=== PATIENT | male | born 1940 | race Caucasian/White ===

== ENCOUNTER 2016-08-20 14:35 | Inpatient (IN) ==
--- NOTE | 2016-08-20 14:43 | Emergency Department Note ---
Disposition Clinical Impression: Lower GI bleed Disposition: Admitted As Inpatient Condition: Fair General Adult HPI - General Chief complaint: ED GI Bleed Stated complaint: GI bleed Time Seen by Provider: 08/20/16 14:39 Nursing Notes Reviewed: Yes Vital Signs Reviewed: Yes - Related Data Home Medications Medication Instructions Recorded Confirmed Albuterol Neb [Proventil Neb] 2.5 mg IH QID PRN 06/21/15 08/20/16 Albuterol Sulfate [Albuterol 2 puff IH QID PRN 06/21/15 08/20/16 Inhaler] Allopurinol [Zyloprim 100 MG] 200 mg PO DAILY 06/21/15 08/20/16 Atorvastatin Calcium [Lipitor] 80 mg PO DAILY 06/21/15 08/20/16 Loratadine [Claritin] 10 mg PO DAILY PRN 06/21/15 08/20/16 Metoprolol [Lopressor] 37.5 mg PO BID 06/21/15 08/20/16 Omeprazole [PriLOSEC] 20 mg PO DAILY 06/21/15 08/20/16 Paroxetine [Paxil] 10 mg PO QAM 06/21/15 08/20/16 Pyridoxine HCl [Vitamin B-6] 50 mg PO QAM 06/21/15 08/20/16 RisperiDONE [Risperdal] 1 mg PO HS 06/21/15 08/20/16 Vitamin E (Dl,Tocopheryl Acet) 400 unit PO HS 06/21/15 08/20/16 [Vitamin E] Warfarin [Coumadin] 7.5 mg PO SUTUTHSA 06/21/15 08/20/16 Warfarin [Coumadin] 10 mg PO MOWEFR 06/21/15 08/20/16 Enoxaparin [Lovenox] 120 mg SQ Q12HR 08/20/16 08/20/16 Fluticasone Propionate Nasal 50 mcg NS BID 08/20/16 08/20/16 [Flonase] Mineral Oil/Petrolatum,White 1 appl BOTH EYES HS 08/20/16 08/20/16 [Refresh P.m. Ointment] Tiotropium [Spiriva] 18 mcg IH DAILY 08/20/16 08/20/16 Allergies Allergy/AdvReac Type Severity Reaction Status Date / Time No Known Allergies Allergy Verified 06/21/15 12:57 Past Medical History - Past Medical History Medical history: Reports: atrial fibrillation, COPD, coronary artery disease, diabetes, GERD, GI bleed, hyperlipidemia, hypertension, renal disease, thyroid disease, valvular heart disease Surgical history: Reports: pacemaker/AICD, other Psychiatric history: Reports: anxiety, depression, panic disorder, prior suicide attempt, schizophrenia - Social History Smoking Status: Smoker, status unknown Smokeless Tobacco Status: No Alcohol use: Reports: none Drug use: Reports: none Course Vital Signs Temperature 99.7 F H 08/20/16 14:38 Pulse Rate 99 08/20/16 14:38 Respiratory Rate 16 08/20/16 14:38 Blood Pressure 119/89 08/20/16 14:38 O2 Sat by Pulse Oximetry 97 08/20/16 14:38 Temperature 99.7 F H 08/20/16 14:38 Pulse Rate 70 08/20/16 17:00 Respiratory Rate 16 08/20/16 17:39 Blood Pressure 120/74 08/20/16 17:39 O2 Sat by Pulse Oximetry 97 08/20/16 17:00 Oxygen Delivery Oxygen Delivery Room Air Medical Decision Making - MDM Narrative Medical decision making narrative: I examined this patient and my medical decision-making was reviewed with the ALARM INVESTIGATOR/PA/Advanced Practice Nurse/Resident Physician. I agree with the documented findings, disposition and treatment plan as described except to the extent set forth below. Patient was evaluated on arrival with EMS and Dr. Short. I agree with his evaluation and management plan, supravascular the patient stay. Patient's had lower GI bleeding going on today. This was bright [facility]. He has had no history of this in the past according to him he does some mild schizophrenia but is cooperative here fairly poor historian. They get labs hemoglobin was 11. We will review his chart repeat his CBC place an IV and then probably will need admission. He is in agreement with this plan. 1545 hrs.: Patient refused rectal exam. He is a little bit of bleeding here. His hemoglobin has dropped from 11.4-9.7. We have talked with surgery here that can come and see the patient evaluate him wondering one of his biopsy sites could be bleeding. We did get the report from the [facility] of his colonoscopy and they did remove polyps service showed no pathology report this time. Patient's agree with this plan. 1650 hrs.: Hospitalist accepted patient for admission. Spoke with surgery and they asked that she be admitted admitted through medicine with them consult. They will keep him nothing by mouth after midnight for possible colonoscopy tomorrow. - Lab Data Result diagrams: 08/20/16 15:08 Lab Results 08/20/16 08/20/16 08/20/16 Range/Units 15:08 15:08 15:08 WBC 9.2 (4.3-11.1) K/mcL RBC 3.54 L (4.19-5.50) M/mcL Hgb 9.7 L (12.9-16.9) g/dL Hct 30.3 L (37.5-50.1) % MCV 85.6 (83.0-100.0) fL MCH 27.4 L (28.0-33.3) pg MCHC 32.0 (31.6-35.5) g/dL RDW 15.9 H (11.5-14.5) % Plt Count 113 L (140-400) K/mcL MPV 12.5 H (9.4-12.4) fL Immature Gran % 0.3 (0-4) % Seg Neutrophils % 67.0 % Lymphocytes % 18.1 % Monocytes % 10.4 % Eosinophils % 3.7 % Basophils % 0.5 % Neutrophils # 6.1 (1.6-8.9) K/mcL Lymphocytes # 1.7 (0.6-4.6) K/mcL Monocytes # 1.0 (0.0-1.3) K/mcL Eosinophils # 0.3 (0.0-0.6) K/mcL Basophils # 0.1 (0.0-0.2) K/mcL PT 29.0 H (9.4-12.1) Seconds INR 2.6 APTT 64.9 H (26.0-36.0) Seconds Blood Type B POSITIVE Antibody Screen NEGATIVE
[2016-08-20 15:19] LABS: Basophils # 0.1 K/mcL (0.0-0.2); Basophils % 0.5 %; Eosinophils # 0.3 K/mcL (0.0-0.6); Eosinophils % 3.7 %; Hematocrit 30.3 % (37.5-50.1); Hemoglobin 9.7 g/dL (12.9-16.9); Immature Granulocytes % 0.3 % (0-4); Lymphocytes # 1.7 K/mcL (0.6-4.6); Lymphocytes % 18.1 %; Mean Corpuscular Hemoglobin 27.4 pg (28.0-33.3); Mean Corpuscular Volume 85.6 fL (83.0-100.0); Mean Platelet Volume 12.5 fL (9.4-12.4); Monocytes % 10.4 %; Neutrophils # 6.1 K/mcL (1.6-8.9); Platelet Count 113 K/mcL (140-400); Red Blood Count 3.54 M/mcL (4.19-5.50); Red Cell Distribution Width 15.9 % (11.5-14.5)
[2016-08-20 15:23] LABS: INR 2.6
[2016-08-20 15:25] LABS: Activated Partial Thrombo Time 64.9 Seconds (26.0-36.0)
--- NOTE | 2016-08-20 15:26 | Emergency Department Note ---
Disposition Clinical Impression: Lower GI bleed Disposition: Admitted As Inpatient Condition: Fair [facility]errals: [facility] [Primary Care Provider[facility] - Forms: ED Satisfaction Letter Time of Disposition: 16:55 GI Bleed HPI - General Chief complaint: ED GI Bleed Stated complaint: GI bleed Time Seen by Provider: 08/20/16 14:39 Source: patient, EMS Mode of arrival: ambulatory Limitations: no limitations Nursing Notes Reviewed: Yes Vital Signs Reviewed: Yes - History of Present Illness HPI Narrative: Patient is a 76-year-old male with past medical history of A. fib, on warfarin, has a pacemaker placed. He presents today due to lower GI bleed. Patient is a transfer from the [facility]. He presents today due to lower GI bleed. Patient has been having bloody bowel movements for the past 5 days, multiple other day. He states it is bright red blood. Denies any lightheadedness, chest pain, shortness of breath. He was evaluated at the [facility] today and had an INR of 2.6, negative urinalysis, hemoglobin was 11.0, BNP not concerning. Patient had a colonoscopy on the and was told he had polyps. CT of the chest showed a nodule in the right upper lobe, otherwise no other additional acute findings. KUB showed a nonobstructive bowel gas pattern. - Related Data Home Medications Medication Instructions Recorded Confirmed Albuterol Neb [Proventil Neb] 2.5 mg IH Q4HR 06/21/15 06/21/15 Albuterol Sulfate [Albuterol 1 - 2 puff IH Q4HR 06/21/15 06/21/15 Inhaler] Allopurinol [Zyloprim 100 MG] 200 mg PO DAILY 06/21/15 06/21/15 Aspirin Enteric Coated [Aspirin EC] 81 mg PO DAILY 06/21/15 06/21/15 Atorvastatin Calcium [Lipitor] 80 mg PO DAILY 06/21/15 06/21/15 Budesonide/Formoterol 160/4.5 2 puff IH BID 06/21/15 06/21/15 [Symbicort 160/4.5] Furosemide [Lasix] 40 mg PO BID 06/21/15 06/21/15 Loratadine [Claritin] 10 mg PO DAILY 06/21/15 06/21/15 Metoprolol [Lopressor] 37.5 mg PO BID 06/21/15 06/21/15 Omeprazole [PriLOSEC] 20 mg PO DAILY 06/21/15 06/21/15 Paroxetine [Paxil] 10 mg PO DAILY 06/21/15 06/21/15 Potassium Chloride Elixir 20 meq PO DAILY 06/21/15 06/21/15 [Potassium Chloride] Pyridoxine HCl [Vitamin B-6] 50 mg PO DAILY 06/21/15 06/21/15 RisperiDONE [Risperdal] 1 mg PO HS 06/21/15 06/21/15 Vitamin E (Dl,Tocopheryl Acet) 400 unit PO DAILY 06/21/15 06/21/15 [Vitamin E] Warfarin [Coumadin] 7.5 mg PO AD PRN 06/21/15 06/21/15 Warfarin [Coumadin] 10 mg PO AD PRN 06/21/15 06/21/15 Allergies Allergy/AdvReac Type Severity Reaction Status Date / Time No Known Allergies Allergy Verified 06/21/15 12:57 All systems ED: reviewed and negative except as stated. Past Medical History - Past Medical History Attestation: Yes The following information was validated with the patient. Source: patient Medical history: Reports: atrial fibrillation, COPD, coronary artery disease, diabetes, GERD, GI bleed, hyperlipidemia, hypertension, renal disease, thyroid disease, valvular heart disease Surgical history: Reports: pacemaker/AICD, other Psychiatric history: Reports: anxiety, depression, panic disorder, prior suicide attempt, schizophrenia - Social History Smoking Status: Smoker, status unknown Smokeless Tobacco Status: No Alcohol use: Reports: none Drug use: Reports: none Physical Exam - General Limitations: no limitations General appearance: alert, in no apparent distress - Head Head exam: atraumatic, normocephalic, normal inspection - Eye Eye exam: Present: normal appearance, PERRL, EOMI - ENT ENT exam: normal exam, normal oropharynx, mucous membranes moist - Neck Neck exam: Present: normal inspection, full ROM, trachea midline - Chest Chest inspection: Present: normal inspection, symmetric chest wall rise - Respiratory Respiratory exam: Present: normal lung sounds bilaterally - Cardiovascular Cardiovascular exam: Present: regular rate, normal rhythm, normal heart sounds - Abdominal Exam Abdominal exam: Present: soft, Non-Tender. Absent: tenderness, distention, guarding, rebound, rigidity - Extremities Exam Extremities exam: Present: normal inspection, full ROM. Absent: tenderness, pedal edema - Neurological Exam Neurological exam: Present: alert, oriented X3 - Psychiatric Psychiatric exam: Present: normal affect, normal mood - Skin Skin exam: Present: warm, dry, intact, normal color Course Course Narrative: Vitals within normal limits. Physical exam was benign except for some mild paleness. Hemoglobin was stable at 11. INR 2.6. I talked with Dr. Elena about concern for lower GI bleed and need for endoscopy who stated that she will call me back after she gets out of surgery. 16:54 Santa Dhillon for surgery team Evaluated the Patient, She Stated That the Surgery Team Will Perform Colonoscopy Tomorrow Morning. Requested the Patient Be Admitted to Medicine Service and Then Nothing by Mouth after Midnight. Hospitalist accepted for admission. Vital Signs Temperature 99.7 F H 08/20/16 14:38 Pulse Rate 99 08/20/16 14:38 Respiratory Rate 16 08/20/16 14:38 Blood Pressure 119/89 08/20/16 14:38 O2 Sat by Pulse Oximetry 97 08/20/16 14:38 Temperature 99.7 F H 08/20/16 14:38 Pulse Rate 83 08/20/16 15:51 Respiratory Rate 16 08/20/16 15:51 Blood Pressure 118/78 08/20/16 15:51 O2 Sat by Pulse Oximetry 97 08/20/16 15:51 Oxygen Delivery Oxygen Delivery Room Air GI Bleed - [facility] Narrative Medical decision making narrative: Vitals within normal limits. Physical exam was benign except for some mild paleness. Hemoglobin was stable at 11. INR 2.6. I talked with Dr. Elena about concern for lower GI bleed and need for endoscopy who stated that she will call me back after she gets out of surgery. 16:54 Santa Dhillon for surgery team Evaluated the Patient, She Stated That the Surgery Team Will Perform Colonoscopy Tomorrow Morning. Requested the Patient Be Admitted to Medicine Service and Then Nothing by Mouth after Midnight. Hospitalist accepted for admission. - Medical Records Medical records reviewed: Yes I reviewed the patient's medical records. - Lab Data Lab results reviewed: Yes I reviewed the patient's lab results. Result diagrams: 08/20/16 15:08 Lab Results 08/20/16 08/20/16 Range/Units 15:08 15:08 WBC 9.2 (4.3-11.1) K/mcL RBC 3.54 L (4.19-5.50) M/mcL Hgb 9.7 L (12.9-16.9) g/dL Hct 30.3 L (37.5-50.1) % MCV 85.6 (83.0-100.0) fL MCH 27.4 L (28.0-33.3) pg MCHC 32.0 (31.6-35.5) g/dL RDW 15.9 H (11.5-14.5) % Plt Count 113 L (140-400) K/mcL MPV 12.5 H (9.4-12.4) fL Immature Gran % 0.3 (0-4) % Seg Neutrophils % 67.0 % Lymphocytes % 18.1 % Monocytes % 10.4 % Eosinophils % 3.7 % Basophils % 0.5 % Neutrophils # 6.1 (1.6-8.9) K/mcL Lymphocytes # 1.7 (0.6-4.6) K/mcL Monocytes # 1.0 (0.0-1.3) K/mcL Eosinophils # 0.3 (0.0-0.6) K/mcL Basophils # 0.1 (0.0-0.2) K/mcL PT 29.0 H (9.4-12.1) Seconds INR 2.6 APTT 64.9 H (26.0-36.0) Seconds - Radiology Data Radiology results reviewed: Yes I reviewed the patient's radiology results. - EKG Data EKG attestation: Yes I reviewed and interpreted this EKG. EKG results narrative: Paced rhythm. Rate 74. QTC 477. S.B.A.R. - S.B.A.R. Situation: Demographics, MOA Background: Presenting Complaint, Relevant PMH, Meds, & Allergies Assessment: Vital Signs, Course and respsone to treatment, Exam Concerns, Patient/Family Expectation, Pertinant Lab Results, Outstanding Labs Recommendation: Barrier(s) to disposition, Recommendation based on pending studies, treatments, or consults S.B.A.R. Report Given to: Dr. Jose Caballero Repor Time: 16:55
[2016-08-20] MEDS ORDERED: Naloxone 0.4 MG/ML INJ IVP PRN (17:49)
[2016-08-20] MEDS ORDERED: Ondansetron 4 MG/2 ML VIAL IVP PRN (17:49)
[2016-08-20] MEDS ORDERED: MOM Conc 10 ML UD.LIQ PO PRN (17:49)
[2016-08-20] MEDS ORDERED: 0.9 % Sodium Chloride 1,000 ML IVC SCH (18:00)
--- NOTE | 2016-08-20 18:20 | Internal Med History&Physical ---
<Haylie Hairston Bren - Last Filed: 08/20/16 19:06> Date of Encounter: 08/20/16 Time of Encounter: 18:00 Assessment and Plan (1) Acute blood loss anemia Current visit: No Status: Acute Pt was sent [place] for acute [place] bleed. He has had bright red bleeding with every BM x 5 days. He denies nette bleeding, but states that it fills the toilet when he does have a bowel movement. He takes Coumadin 7.5mg 4 days/week and 10mg 3 days/week. INR is therapeutic at 2.6 in ED. We will hold his Coumadin. Hgb dropped from 11-9.7 while in the ED. Pt denies SOB, chest pain, fatigue or dyspnea. Type and screen has been ordered and H and H will be drawn every 8 hours. (2) Lower GI bleed Current visit: Yes Status: Acute Plan as above. Surgery was consulted by ER physician. Pt will be NPO after midnight for scope in the am. Pt denies abd pain or cramping and states that he has not had diarrhea since he has been at [place]. Abd is distended, but soft, non -tender, hyperactive BS x 4. Pt refused rectal and guiac in the ED. (3) Hypertension Current visit: No Status: Chronic Last bp here was 120/74. We will hold all bp meds due to the high risk for hypotension from GI bleed. Qualifiers: Hypertension type: essential hypertension Qualified Code(s): I10 - Essential (primary) hypertension Internal Medicine - H&P: HPI Chief complaint: GI bleeding Admitted From: Hospital to Hospital Transfer Plans for Post Hospital Care: Home History of present illness: Mr. Pace is a 76 year old male who comes here from the [place] with c/o GI bleeding. His history includes anemia, CAD, a-fib, mitral valve replacement, CKD , schizophrenia, COPD, HTN. Pt reports 5 day history of bright red blood every time he has a BM and states that it only happens daily, last time today was while he was still at the [place]. He states that he is not having nette bleeding and that when he has a bowel movement, bright red blood fills the toilet. Hgb fell from 11 to 9.7 while in ED. Pt denies SOB, dizziness, or fatigue. Surgery has already been consulted, pt received Phytonadione 10mg IV in the ED and a type and screen has already been ordered. Pts abd is distended with hyperactive bs throughout. Past Med Surg Social Fam HX - Past Medical History Medical history: atrial fibrillation, COPD, coronary artery disease, diabetes, GERD, GI bleed, hyperlipidemia, hypertension, renal disease, thyroid disease, valvular heart disease Psychiatric history: anxiety, depression, panic disorder, prior suicide attempt , schizophrenia - Past Surgical History Surgical History: pacemaker/AICD, other - Social History Smoking Status: Smoker, status unknown Smokeless Tobacco Status: No Alcohol use: none Drug use: none Internal Medicine - H&P: Meds Albuterol Neb [Proventil Neb] 2.5 mg IH QID PRN 06/21/15 [History] Albuterol Sulfate [Albuterol Inhaler] 2 puff IH QID PRN 06/21/15 [History] Allopurinol [Zyloprim 100 MG] 200 mg PO DAILY 06/21/15 [History] Atorvastatin Calcium [Lipitor] 80 mg PO DAILY 06/21/15 [History] Loratadine [Claritin] 10 mg PO DAILY PRN 06/21/15 [History] Metoprolol [Lopressor] 37.5 mg PO BID 06/21/15 [History] Omeprazole [PriLOSEC] 20 mg PO DAILY 06/21/15 [History] Paroxetine [Paxil] 10 mg PO QAM 06/21/15 [History] Pyridoxine HCl [Vitamin B-6] 50 mg PO QAM 06/21/15 [History] RisperiDONE [Risperdal] 1 mg PO HS 06/21/15 [History] Vitamin E (Dl,Tocopheryl Acet) [Vitamin E] 400 unit PO HS 06/21/15 [History] Warfarin [Coumadin] 7.5 mg PO SUTUTHSA 06/21/15 [History] Warfarin [Coumadin] 10 mg PO MOWEFR 06/21/15 [History] Enoxaparin [Lovenox] 120 mg SQ Q12HR 08/20/16 [History] Fluticasone Propionate Nasal [Flonase] 50 mcg NS BID 08/20/16 [History] Mineral Oil/Petrolatum,White [Refresh P.m. Ointment] 1 appl BOTH EYES HS [History] Tiotropium [Spiriva] 18 mcg IH DAILY 08/20/16 [History] Allergies No Known Allergies Allergy (Verified 06/21/15 12:57) All Systems PM: A 10-system review of systems was performed and is negative for pertinent findings except as documented above in the HPI. - Constitutional Constitutional: no chills, no fatigue, no fever(s), no lethargy, no weakness - Cardiovascular Cardiovascular ROS IM: no chest pain, no diaphoresis, no dyspnea, no dyspnea on exertion, no palpitations - Respiratory Respiratory: no cough, no dyspnea, no wheezing, no chest congestion, no excessive phlegm production - Gastrointestinal Gastrointestinal: diarrhea, hematochezia, nausea, no vomiting - Genitourinary Genitourinary ROS male: no hematuria Additional comments: denies nette hematuria - Integumentary Integumentary IM: no unusual bruising - Constitutional Vitals: Temp Pulse Resp BP Pulse Ox 99.7 F H 70 16 120/74 97 08/20/16 14:38 08/20/16 17:00 08/20/16 17:39 08/20/16 17:39 08/20/16 17:00 General appearance: Present: A&O X 3, pleasant, no acute distress Exam: Pt has flat affect and chews on his tongue throught evaluation. - Neck Neck exam general surgery: Present: full ROM. Absent: lymphadenopathy, tenderness, thyromegaly - Respiratory Respiratory exam: Absent: accessory muscle use, chest wall tenderness, decreased breath sounds, prolonged expiratory phase, rales Additional comments: Lungs clear in all marroquin x inspiratory wheezing heard in R upper post. - Cardiovascular Cardiovascular exam: Present: clicks, +S1, +S2 Additional comments: Pt had mitral valve replaced about 10 years ago. - GI/Abdominal GI/Abdominal exam: Present: distended, hyperactive bowel sounds. Absent: rigid , tenderness - Rectal Rectal exam: Present: deferred - Extremities Exam Extremities exam: Present: full ROM, normal capillary refill, normal inspection , warm. Absent: cyanotic, joint swelling - Neurological Exam Neurological exam: Present: alert, oriented X3, no focal deficits. Absent: facial droop, speech deficit Internal Med - H&P Results - Labs CBC & Chem 7: 08/20/16 15:08 - EKG Data EKG comments: 08/20/16 18:53 Ventricular pacemaker Rate 74 - VTE Reasons for not Prescribing Prophylaxis: Not indicated-Anticoagulated or INR therapeutic <Megan Salas - Last Filed: 08/20/16 19:25> Date of Encounter: 08/20/16 Internal Medicine - H&P: HPI History of present illness: Mr. Pace is a 76 year old male All Systems PM: A 10-system review of systems was performed and is negative for pertinent findings except as documented above in the HPI. - Constitutional Vitals: Temp Pulse Resp BP Pulse Ox 99.7 F H 70 16 120/74 97 08/20/16 14:38 08/20/16 17:00 08/20/16 17:39 08/20/16 17:39 08/20/16 17:00 Internal Med - H&P Results - Labs CBC & Chem 7: 08/20/16 15:08 - Attending Attestation I examined this patient and reviewed laboratory, imaging and all diagnostic data. My medical decision-making was reviewed with ESTEFANY Hairston. I agree with the documented findings, disposition and treatment plan as described above. 76- year-old male with past medical history significant for atrial fibrillation and mechanical valve replacement on Coumadin who presents with a chief complaint of rectal bleeding. Patient is hemodynamically stable. Hemoglobin 9.7. INR 2.6. Surgery evaluated the patient in the emergency room and recommended vitamin K and 2 units of FFPs. PLAN: Acute blood loss anemia secondary to GI bleed. Unclear etiology. Close monitor of H&H. Given history of mechanical valve patient is at risk of valve thrombosis, will order neuro checks q2hr.
[2016-08-20] MEDS ORDERED: Loratadine 10 MG TABLET PO PRN (18:28)
[2016-08-20] MEDS ORDERED: 0.9 % Sodium Chloride 500 ML ONE (21:09)
[2016-08-20] MEDS: Fluticasone Propionate Nasal 50 MCG/SPRAY BOTTLE NS SCH (21:18)
[2016-08-20] MEDS: risperiDONE 1 MG TABLET PO SCH (21:18)
[2016-08-21] MEDS ORDERED: 0.9 % Sodium Chloride 500 ML ONE (01:55)
[2016-08-21 05:32] LABS: Hemoglobin 8.5 g/dL (12.9-16.9); Immature Granulocytes % 0.4 % (0-4); Mean Corpuscular Volume 84.7 fL (83.0-100.0)
[2016-08-21 05:34] LABS: Basophils % 0.4 %; Eosinophils # 0.2 K/mcL (0.0-0.6); Eosinophils % 2.7 %; Hematocrit 26.5 % (37.5-50.1); Immature Platelets 14.6 % (1.1-6.1); Lymphocytes # 1.8 K/mcL (0.6-4.6); Lymphocytes % 21.5 %; Mean Corpuscular HGB Conc 32.1 g/dL (31.6-35.5); Mean Corpuscular Hemoglobin 27.2 pg (28.0-33.3); Mean Platelet Volume 13.2 fL (9.4-12.4); Monocytes # 0.9 K/mcL (0.0-1.3); Monocytes % 10.9 %; Neutrophils # 5.3 K/mcL (1.6-8.9); Platelet Count 101 K/mcL (140-400); Red Blood Count 3.13 M/mcL (4.19-5.50); Red Cell Distribution Width 15.9 % (11.5-14.5); Segmented Neutrophils % 64.1 %
[2016-08-21 05:36] LABS: INR 1.4; Prothrombin Time 15.7 Seconds (9.4-12.1)
[2016-08-21 05:38] LABS: Activated Partial Thrombo Time 37.9 Seconds (26.0-36.0)
[2016-08-21 05:47] LABS: BUN/Creatinine Ratio 16 (6-26); Blood Urea Nitrogen 20 mg/dL (8-26); Calcium 8.6 mg/dL (8.6-10.8); Carbon Dioxide 23 mEq/L (19-29); Chloride 107 mEq/L (98-109); Glucose 109 mg/dL (70-99); Osmolality,Calculated 295 (280-300); Potassium 3.2 mEq/L (3.5-4.5); Sodium 141 mEq/L (136-145); eGFR For African Americans > 60 (> 60); eGFR For Non-African Americans 58 (> 60)
[2016-08-21] MEDS ORDERED: Potassium Chloride 20 MEQ, Lidocaine 1% 2 ML in D5% in Water 250 ML IVPB ONE (07:51)
[2016-08-21] MEDS: Fluticasone Propionate Nasal 50 MCG/SPRAY BOTTLE NS SCH ×2 (09:10→20:47)
--- NOTE | 2016-08-21 10:52 | General Surgery Consult Note ---
<Lynnette Olivo - Last Filed: 08/21/16 11:48> Date of Encounter: 08/21/16 Time of Encounter: 16:00 Assessment and Plan (1) Lower GI bleed Current Visit: Yes Status: Acute Advance to full liquid diet Repeat Hgb/Hct at 1700 today Reverse coumadin therapy- Vit. K and FFP given 2/6 Will continue to monitor- no plans for colonoscopy at this time; will consider if patient continues to bleed with reversal of INR (2) Acute blood loss anemia Current Visit: No Status: Acute Repeat Hgb/Hct at 1700 today (3) Chronic atrial fibrillation Current Visit: No Status: Chronic Hold Coumadin (4) Chronic kidney disease Current Visit: No Status: Chronic Management per medicine service Qualifiers: Chronic kidney disease stage: stage 3 (moderate) Qualified Code(s): N18.3 - Chronic kidney disease, stage 3 (moderate) (5) Chronic obstructive pulmonary disease Current Visit: No Status: Chronic management per medicine service Qualifiers: COPD type: unspecified COPD Qualified Code(s): J44.9 - Chronic obstructive pulmonary disease, unspecified (6) Coagulopathy Current Visit: No Status: Chronic Vitamin K and FFP given 2/6 INR- 1.4 today Hold coumadin (7) Hypertension Current Visit: No Status: Chronic normotensive Management per medicine service Qualifiers: Hypertension type: essential hypertension Qualified Code(s): I10 - Essential (primary) hypertension (8) Schizophrenia Current Visit: No Status: Chronic Qualifiers: Schizophrenia type: unspecified Qualified Code(s): F20.9 - Schizophrenia, unspecified (9) Mass of right lung Current Visit: Yes Status: Acute Discussed findings from the [place] CT scan of chest with Dr. Wilkinson. History of Present Illness Consult date: 08/20/16 Reason for consult: other (rectal bleeding) Requesting physician: Jm Trejo History of present illness: Mr. Pace is a very pleasant 76 year old male who was transferred from the [facility] with rectal bleeding. He is recently s/p a colonoscopy on August 14, 2016 at the [facility]. He did have poypectomy. He is currently taking lovenox injections for bridging while being restarted on his coumadin. He states that he noticed blood in his stool starting 2 days ago. He reported a total of 5 bloody bowel movements prior to presenting to the [place]. His INR was 2.6. He denies nausea/vomiting. Denies syncopal episodes. He does report feeling a little light headed and dizzy. We have been asked to see and evaluate the patient for rectal bleeding. Past Med Surg Social Fam HX - Past Medical History Source: old records reviewed Medical history: atrial fibrillation, COPD, coronary artery disease, diabetes, GERD, GI bleed, hyperlipidemia, hypertension, renal disease (renal cyst), thyroid disease, valvular heart disease, other (Parkinson's disease, YOVANNY) Psychiatric history: anxiety, depression, panic disorder, prior suicide attempt , schizophrenia - Past Surgical History Surgical History: pacemaker/AICD, other (Colonoscopy 06/2016 X 3, Colonoscopy ) - Social History Smoking Status: Smoker, status unknown Smokeless Tobacco Status: No Alcohol use: none Drug use: none Medications and Allergies Albuterol Neb [Proventil Neb] 2.5 mg IH QID PRN 06/21/15 [History] Albuterol Sulfate [Albuterol Inhaler] 2 puff IH QID PRN 06/21/15 [History] Allopurinol [Zyloprim 100 MG] 200 mg PO DAILY 06/21/15 [History] Atorvastatin Calcium [Lipitor] 80 mg PO DAILY 06/21/15 [History] Loratadine [Claritin] 10 mg PO DAILY PRN 06/21/15 [History] Metoprolol [Lopressor] 37.5 mg PO BID 06/21/15 [History] Omeprazole [PriLOSEC] 20 mg PO DAILY 06/21/15 [History] Paroxetine [Paxil] 10 mg PO QAM 06/21/15 [History] Pyridoxine HCl [Vitamin B-6] 50 mg PO QAM 06/21/15 [History] RisperiDONE [Risperdal] 1 mg PO HS 06/21/15 [History] Vitamin E (Dl,Tocopheryl Acet) [Vitamin E] 400 unit PO HS 06/21/15 [History] Warfarin [Coumadin] 7.5 mg PO SUTUTHSA 06/21/15 [History] Warfarin [Coumadin] 10 mg PO MOWEFR 06/21/15 [History] Enoxaparin [Lovenox] 120 mg SQ Q12HR 08/20/16 [History] Fluticasone Propionate Nasal [Flonase] 50 mcg NS BID 08/20/16 [History] Mineral Oil/Petrolatum,White [Refresh P.m. Ointment] 1 appl BOTH EYES HS [History] Tiotropium [Spiriva] 18 mcg IH DAILY 08/20/16 [History] Allergies No Known Allergies Allergy (Verified 06/21/15 12:57) Review of Systems All systems PM: reviewed and no additional remarkable complaints except as stated (in the HPI) All systems PM: A 10-system review of systems was performed and is negative for pertinent findings except as documented above in the HPI. General Surgery Exam Initial Vital Signs Temp Pulse Resp BP Pulse Ox 99.7 F H 99 16 119/89 97 08/20/16 14:38 08/20/16 14:38 08/20/16 14:38 08/20/16 14:38 08/20/16 14:38 - General physical appearance well developed, well nourished, no distress - Eyes normal ocular movement - ENT normal mucosa, atraumatic, normocephalic - Neck trachea midline - Respiratory normal respiratory effort, clear to auscultation - Cardiovascular Cardiovascular exam: Present: irregular rhythm - Abdomen Abdomen general surgery: Present: bowel sounds present, soft, non tender - Integumentary Integumentary general surgery: Present: warm and dry, no abnormal pigmentation - Neurologic Present: CN 2-12 grossly intact - Psychiatric Psychiatric general surgery: Present: A&Ox3 Exam Initial Vital Signs Temp Pulse Resp BP Pulse Ox 99.7 F H 99 16 119/89 97 08/20/16 14:38 08/20/16 14:38 08/20/16 14:38 08/20/16 14:38 08/20/16 14:38 Results - Labs 08/21/16 04:54 08/21/16 04:54 Abnormal lab results RBC 3.13 M/mcL (4.19-5.50) L 08/21/16 04:54 Hgb 8.5 g/dL (12.9-16.9) L 08/21/16 04:54 Hct 26.5 % (37.5-50.1) L 08/21/16 04:54 MCH 27.2 pg (28.0-33.3) L 08/21/16 04:54 RDW 15.9 % (11.5-14.5) H 08/21/16 04:54 Plt Count 101 K/mcL (140-400) L 08/21/16 04:54 MPV 13.2 fL (9.4-12.4) H 08/21/16 04:54 Immature Plt Fraction 14.6 % (1.1-6.1) H 08/21/16 04:54 PT 15.7 Seconds (9.4-12.1) H 08/21/16 04:54 APTT 37.9 Seconds (26.0-36.0) H 08/21/16 04:54 Potassium 3.2 mEq/L (3.5-4.5) L 08/21/16 04:54 Est GFR (Non-Af Amer) 58 (> 60) L 08/21/16 04:54 Glucose 109 mg/dL (70-99) H 08/21/16 04:54 Diabetes panel 08/21/16 Range/Units 04:54 Sodium 141 (136-145) mEq/L Potassium 3.2 L (3.5-4.5) mEq/L Chloride 107 (98-109) mEq/L Carbon Dioxide 23 (19-29) mEq/L BUN 20 (8-26) mg/dL Creatinine 1.23 (0.72-1.25) mg/dL Glucose 109 H (70-99) mg/dL Calcium 8.6 (8.6-10.8) mg/dL Calcium panel 08/21/16 Range/Units 04:54 Calcium 8.6 (8.6-10.8) mg/dL Pituitary panel 08/21/16 Range/Units 04:54 Sodium 141 (136-145) mEq/L Potassium 3.2 L (3.5-4.5) mEq/L Chloride 107 (98-109) mEq/L Carbon Dioxide 23 (19-29) mEq/L BUN 20 (8-26) mg/dL Creatinine 1.23 (0.72-1.25) mg/dL Glucose 109 H (70-99) mg/dL Calcium 8.6 (8.6-10.8) mg/dL Adrenal panel 08/21/16 Range/Units 04:54 Sodium 141 (136-145) mEq/L Potassium 3.2 L (3.5-4.5) mEq/L Chloride 107 (98-109) mEq/L Carbon Dioxide 23 (19-29) mEq/L BUN 20 (8-26) mg/dL Creatinine 1.23 (0.72-1.25) mg/dL Glucose 109 H (70-99) mg/dL Calcium 8.6 (8.6-10.8) mg/dL All other labs normal. Consult Discharge Plan - Plan [facility]errals: [facility] [Primary Care Provider] - - Attending Attestation I examined this patient and my medical decision-making was reviewed with the HUMANITIES TEACHER/PA/Advanced Practice Nurse/Resident Physician. I agree with the documented findings, disposition and treatment plan as described except to the extent set forth below. <Donna Elena Bren - Last Filed: 08/21/16 12:21> Date of Encounter: 08/21/16 Assessment and Plan (1) Lower GI bleed Current Visit: Yes Status: Acute patient has had 4 colonoscopies in ~6 weeks. Patient with anemia and rectal bleeding after colonoscopy but he is anticoagulated with an INR of 2.6. 2 ffp given and vitamin K given, inr decreased to 1.4 today Hb dropped 1.2 overnight, takes 24 hrs for Hb to equilibriate after bleed stops which I would hope to happen after stop coumadin and lovenox will recheck Hb at 5 pm tonight, monitor no plans for repeat colonoscopy at this time (2) Mass of right lung Current Visit: Yes Status: Acute (3) Acute blood loss anemia Current Visit: No Status: Acute (4) Chronic atrial fibrillation Current Visit: No Status: Chronic (5) Coagulopathy Current Visit: No Status: Chronic Review of Systems All systems PM: A 10-system review of systems was performed and is negative for pertinent findings except as documented above in the HPI. General Surgery Exam Initial Vital Signs Temp Pulse Resp BP Pulse Ox 99.7 F H 99 16 119/89 97 08/20/16 14:38 08/20/16 14:38 08/20/16 14:38 08/20/16 14:38 08/20/16 14:38 - General physical appearance well developed, well nourished, no distress, obese, other (pale) - Eyes PERRL, normal ocular movement - ENT atraumatic, normocephalic - Neck trachea midline - Respiratory normal expansion, clear to auscultation - Abdomen Abdomen general surgery: Present: bowel sounds present, soft, non tender. Absent: distended, guarding, rebound - Integumentary Integumentary general surgery: Present: warm and dry - Neurologic Present: CN 2-12 grossly intact - Psychiatric Psychiatric general surgery: Present: A&Ox3 Exam Initial Vital Signs Temp Pulse Resp BP Pulse Ox 99.7 F H 99 16 119/89 97 08/20/16 14:38 08/20/16 14:38 08/20/16 14:38 08/20/16 14:38 08/20/16 14:38 Results - Labs 08/21/16 04:54 08/21/16 04:54 Abnormal lab results RBC 3.13 M/mcL (4.19-5.50) L 08/21/16 04:54 Hgb 8.5 g/dL (12.9-16.9) L 08/21/16 04:54 Hct 26.5 % (37.5-50.1) L 08/21/16 04:54 MCH 27.2 pg (28.0-33.3) L 08/21/16 04:54 RDW 15.9 % (11.5-14.5) H 08/21/16 04:54 Plt Count 101 K/mcL (140-400) L 08/21/16 04:54 MPV 13.2 fL (9.4-12.4) H 08/21/16 04:54 Immature Plt Fraction 14.6 % (1.1-6.1) H 08/21/16 04:54 PT 15.7 Seconds (9.4-12.1) H 08/21/16 04:54 APTT 37.9 Seconds (26.0-36.0) H 08/21/16 04:54 Potassium 3.2 mEq/L (3.5-4.5) L 08/21/16 04:54 Est GFR (Non-Af Amer) 58 (> 60) L 08/21/16 04:54 Glucose 109 mg/dL (70-99) H 08/21/16 04:54 Diabetes panel 08/21/16 Range/Units 04:54 Sodium 141 (136-145) mEq/L Potassium 3.2 L (3.5-4.5) mEq/L Chloride 107 (98-109) mEq/L Carbon Dioxide 23 (19-29) mEq/L BUN 20 (8-26) mg/dL Creatinine 1.23 (0.72-1.25) mg/dL Glucose 109 H (70-99) mg/dL Calcium 8.6 (8.6-10.8) mg/dL Calcium panel 08/21/16 Range/Units 04:54 Calcium 8.6 (8.6-10.8) mg/dL Pituitary panel 08/21/16 Range/Units 04:54 Sodium 141 (136-145) mEq/L Potassium 3.2 L (3.5-4.5) mEq/L Chloride 107 (98-109) mEq/L Carbon Dioxide 23 (19-29) mEq/L BUN 20 (8-26) mg/dL Creatinine 1.23 (0.72-1.25) mg/dL Glucose 109 H (70-99) mg/dL Calcium 8.6 (8.6-10.8) mg/dL Adrenal panel 08/21/16 Range/Units 04:54 Sodium 141 (136-145) mEq/L Potassium 3.2 L (3.5-4.5) mEq/L Chloride 107 (98-109) mEq/L Carbon Dioxide 23 (19-29) mEq/L BUN 20 (8-26) mg/dL Creatinine 1.23 (0.72-1.25) mg/dL Glucose 109 H (70-99) mg/dL Calcium 8.6 (8.6-10.8) mg/dL All other labs normal.
--- NOTE | 2016-08-21 11:33 | Internal Med Progress Note ---
Date of Encounter: 08/21/16 Time of Encounter: 11:32 - Assessment and plan (1) Lower GI bleed Current Visit: Yes Status: Acute Assessment and plan: Surgery eval appreciated No surgical intervention at this time continue to hold anticoagulation Awaiting surgery input in regards to continuation of anticoagulation after discharge Closely monitor H&H transfuse as needed (2) Acute blood loss anemia Current Visit: No Status: Acute Assessment and plan: as listed above (3) Hypokalemia Current Visit: Yes Status: Acute Assessment and plan: K supplemented continue to monitor electrolytes and replace as needed (4) DVT prophylaxis Current Visit: No Status: Acute Assessment and plan: IPCD (5) Chronic atrial fibrillation Current Visit: No Status: Chronic Assessment and plan: Rate controlled holding anticoagulation due to recent bleed continue home medications (6) Chronic kidney disease Current Visit: No Status: Chronic Assessment and plan: Kidney function at baseline continue to monitor Qualifiers: Chronic kidney disease stage: stage 3 (moderate) Qualified Code(s): N18.3 - Chronic kidney disease, stage 3 (moderate) (7) Chronic obstructive pulmonary disease Current Visit: No Status: Chronic Assessment and plan: not in acute exacerbation bronchodilators as needed O2 supplementation as needed continue to monitor Qualifiers: COPD type: unspecified COPD Qualified Code(s): J44.9 - Chronic obstructive pulmonary disease, unspecified (8) Hypertension Current Visit: No Status: Chronic Assessment and plan: BP within acceptable range despite holding home antihypertensives will continue to monitor BP Qualifiers: Hypertension type: essential hypertension Qualified Code(s): I10 - Essential (primary) hypertension (9) Obesity (BMI 30.0-34.9) Current Visit: No Status: Chronic (10) Schizophrenia Current Visit: No Status: Chronic Assessment and plan: continue home medications Qualifiers: Schizophrenia type: unspecified Qualified Code(s): F20.9 - Schizophrenia, unspecified (11) Mass of right lung Current Visit: Yes Status: Acute Assessment and plan: unable to find the imaging reports showing the mass awaiting complete records from the [place] - Subjective Interval history: Patient seen and examined at bedside. Resting in bed, reports of undergoing a colonoscopy at the [place] on Aug 14 and was restarted on anticoagulation with bridging with Lovenox and coumadin. He states he started noticing bloody bowel movements last evening which prompted his visit to the ER. AT this time he is resting in bed and denies any pain or any bloody BM since morning. He received 2 units FFP and vit K in the ER. - Constitutional Vitals: Temp Pulse Resp BP Pulse Ox 98.5 F 77 17 124/75 96 08/21/16 10:30 08/21/16 10:30 08/21/16 10:30 08/21/16 10:30 08/21/16 10:30 General appearance: Present: A&O X 3, morbidly obese, pleasant, no acute distress - Head Head exam: Present: atraumatic, normocephalic - Eye Eye exam: Present: normal appearance, conjuntiva pink, sclera anicteric - Respiratory Respiratory exam: Present: CTAB. Absent: respiratory distress, wheezes - Cardiovascular Cardiovascular exam: Present: RRR, +S1, +S2 - GI/Abdominal GI/Abdominal exam: Present: distended (obese), normal bowel sounds, soft. Absent: tenderness - Extremities Exam Extremities exam: Present: warm, radial pulses palpable and symetrical. Absent : calf tenderness, pedal edema - Neurological Exam Neurological exam: Present: alert, oriented X3 - Psychiatric Psychiatric exam: Present: normal affect, normal mood Internal Medicine: Result - Labs CBC & Chem 7: 08/21/16 04:54 08/21/16 04:54 Labs: Short CBC 08/21/16 Range/Units 04:54 WBC 8.2 (4.3-11.1) K/mcL Hgb 8.5 L (12.9-16.9) g/dL Hct 26.5 L (37.5-50.1) % Plt Count 101 L (140-400) K/mcL Neutrophils # 5.3 (1.6-8.9) K/mcL BMP 08/21/16 04:54 Sodium 141 Potassium 3.2 L Chloride 107 Carbon Dioxide 23 BUN 20 Creatinine 1.23 Glucose 109 H Calcium 8.6 - ABG Interpretation ABG results: PT/INR, D-dimer PT 15.7 Seconds (9.4-12.1) H 08/21/16 04:54 - VTE Reasons for not Prescribing Prophylaxis: Not indicated-Anticoagulated or INR therapeutic Documentation of Mechanical Device: Intermittent pneumatic compression device Consult Discharge Plan - Plan [facility]errals: [facility] [Primary Care Provider] -
[2016-08-21] MEDS ORDERED: Albuterol 2.5 MG/3 ML NEBULIZER IH PRN (13:51)
[2016-08-21 17:54] LABS: Hematocrit 27.8 % (37.5-50.1)
--- NOTE | 2016-08-21 19:42 | Electrocardiograph Report ---
[employer] [facility] Test Date: 2016-08-20 Pat Name: Julius Pace Department: [id number] Room: 3A24 Gender: M Desulfurizer Operator: : [id number] Requested By: Viviane Wilkinson Order Number: [id number] Reading MD: Jose Awan DO Measurements Intervals Morgan Rate: 74 P: NV: 0 QRS: -9 QRSD: 156 T: 203 QT: 450 QTc: 477 Interpretive Statements ELECTRONIC VENTRICULAR PACEMAKER -- Electronically Signed On 08-21-2016 19:40:55 EST by Jose Awan DO
[2016-08-21] MEDS: risperiDONE 1 MG TABLET PO SCH (20:47)
[2016-08-22 05:36] LABS: INR 1.1; Prothrombin Time 11.5 Seconds (9.4-12.1)
[2016-08-22 05:37] LABS: Basophils % 0.6 %; Eosinophils # 0.3 K/mcL (0.0-0.6); Eosinophils % 4.7 %; Hematocrit 24.4 % (37.5-50.1); Hemoglobin 7.8 g/dL (12.9-16.9); Immature Granulocytes % 0.9 % (0-4); Immature Platelets 12.8 % (1.1-6.1); Lymphocytes % 19.2 %; Mean Corpuscular Hemoglobin 27.1 pg (28.0-33.3); Mean Corpuscular Volume 84.7 fL (83.0-100.0); Mean Platelet Volume 13.2 fL (9.4-12.4); Monocytes # 0.6 K/mcL (0.0-1.3); Monocytes % 10.8 %; Neutrophils # 3.4 K/mcL (1.6-8.9); Red Blood Count 2.88 M/mcL (4.19-5.50); Red Cell Distribution Width 15.9 % (11.5-14.5); Segmented Neutrophils % 63.8 %
[2016-08-22 05:43] LABS: Platelet Count 93 K/mcL (140-400)
[2016-08-22 05:51] LABS: BUN/Creatinine Ratio 14 (6-26); Blood Urea Nitrogen 15 mg/dL (8-26); Calcium 8.5 mg/dL (8.6-10.8); Carbon Dioxide 27 mEq/L (19-29); Chloride 108 mEq/L (98-109); Glucose 111 mg/dL (70-99); Magnesium 1.6 mg/dL (1.6-2.6); Osmolality,Calculated 292 (280-300); Potassium 3.2 mEq/L (3.5-4.5); Sodium 140 mEq/L (136-145); eGFR For African Americans > 60 (> 60); eGFR For Non-African Americans > 60 (> 60)
[2016-08-22] MEDS ORDERED: Potassium Chloride 40 MEQ, Lidocaine 1% 2 ML in D5% in Water 500 ML IVPB ONE (07:52)
[2016-08-22] MEDS: Tiotropium 18 MCG inhalation IH SCH (07:58)
[2016-08-22] MEDS: Fluticasone Propionate Nasal 50 MCG/SPRAY BOTTLE NS SCH ×2 (08:57→20:48)
[2016-08-22 09:07] LABS: Hematocrit 26.9 % (37.5-50.1); Hemoglobin 8.8 g/dL (12.9-16.9)
--- NOTE | 2016-08-22 09:59 | General Surgery Progress Note ---
<Lebron Mcconnell - Last Filed: 08/22/16 09:57> Date of Encounter: 08/22/16 Time of Encounter: 08:10 - Assessment and Plan (1) Lower GI bleed Current Visit: Yes Status: Acute Tolerating diet, no abdominal pain. Repeat Hgb/Hct at 1700 today Reverse coumadin therapy- Vit. K and FFP given 2/6 Will continue to monitor- no plans for colonoscopy at this time; will consider if patient continues to bleed with reversal of INR (2) Acute blood loss anemia Current Visit: No Status: Acute HGB 9.7>8.5>9.0>7.8>8.8 Plan to check again at 17:00 (3) Chronic atrial fibrillation Current Visit: No Status: Chronic hold coumadin Management per medicine service (4) Chronic kidney disease Current Visit: No Status: Chronic Management per medicine service Qualifiers: Chronic kidney disease stage: stage 3 (moderate) Qualified Code(s): N18.3 - Chronic kidney disease, stage 3 (moderate) (5) Chronic obstructive pulmonary disease Current Visit: No Status: Chronic Management per medicine service Qualifiers: COPD type: unspecified COPD Qualified Code(s): J44.9 - Chronic obstructive pulmonary disease, unspecified (6) Coagulopathy Current Visit: No Status: Chronic Vitamin K and FFP given 2/6 INR- 1.1 today Hold coumadin (7) Hypertension Current Visit: No Status: Chronic normotensive Management per medicine service Qualifiers: Hypertension type: essential hypertension Qualified Code(s): I10 - Essential (primary) hypertension (8) Schizophrenia Current Visit: No Status: Chronic Qualifiers: Schizophrenia type: unspecified Qualified Code(s): F20.9 - Schizophrenia, unspecified (9) Mass of right lung Current Visit: Yes Status: Acute Medicine service aware. Subjective Patient reports: no new complaints, feels better, tolerating liquids well, flatus, bowel movement, blood in stool (noted small amound of dark blood in stool this AM), afebrile Objective Vital Signs - Last 8 Hours Temp Pulse Resp BP Pulse Ox 08/22/16 06:59 98.0 F 68 16 110/70 98 08/22/16 04:07 98.0 F 70 14 119/73 96 Intake and Output 08/21/16 08/22/16 08/22/16 23:59 07:59 15:59 Intake Total 240 / 240 300 / 300 Output Total 100 / 100 475 / 475 150 / 150 Balance 140 / 140 -175 / -175 -150 / -150 Intake: Oral 240 / 240 300 / 300 Output: Urine 100 / 100 475 / 475 150 / 150 Other: Meal Dinner NPO Percent of Meal Consumed 5% Stool Size Small Small Stool Consistency liquid formed Stool Color Dark Red Blood Dark Red Blood # Bowel Movements 1 1 Blood Glucose* 116 - General physical appearance well developed, well nourished, no distress - Eyes normal ocular movement - ENT normal mucosa, atraumatic, normocephalic - Neck Neck exam: trachea midline - Respiratory normal respiratory effort, clear to auscultation - Cardiovascular Cardiovascular exam: Present: RRR - Abdomen Abdomen: Present: bowel sounds present, soft, non tender - Neurologic CN 2-12 grossly intact - Psychiatric oriented to time, oriented to person, oriented to place, speech is normal, memory intact - Labs 08/22/16 08:57 08/22/16 04:53 Diabetes panel 08/22/16 Range/Units 04:53 Sodium 140 (136-145) mEq/L Potassium 3.2 L (3.5-4.5) mEq/L Chloride 108 (98-109) mEq/L Carbon Dioxide 27 (19-29) mEq/L BUN 15 (8-26) mg/dL Creatinine 1.06 (0.72-1.25) mg/dL Glucose 111 H (70-99) mg/dL Calcium 8.5 L (8.6-10.8) mg/dL Calcium panel 08/22/16 Range/Units 04:53 Calcium 8.5 L (8.6-10.8) mg/dL Phosphorus 3.0 (2.3-4.7) mg/dL Pituitary panel 08/22/16 Range/Units 04:53 Sodium 140 (136-145) mEq/L Potassium 3.2 L (3.5-4.5) mEq/L Chloride 108 (98-109) mEq/L Carbon Dioxide 27 (19-29) mEq/L BUN 15 (8-26) mg/dL Creatinine 1.06 (0.72-1.25) mg/dL Glucose 111 H (70-99) mg/dL Calcium 8.5 L (8.6-10.8) mg/dL Adrenal panel 08/22/16 Range/Units 04:53 Sodium 140 (136-145) mEq/L Potassium 3.2 L (3.5-4.5) mEq/L Chloride 108 (98-109) mEq/L Carbon Dioxide 27 (19-29) mEq/L BUN 15 (8-26) mg/dL Creatinine 1.06 (0.72-1.25) mg/dL Glucose 111 H (70-99) mg/dL Calcium 8.5 L (8.6-10.8) mg/dL - VTE Reasons for not Prescribing Prophylaxis: Not indicated-Anticoagulated or INR therapeutic Documentation of Mechanical Device: Intermittent pneumatic compression device Consult Discharge Plan - Plan [facility]errals: [facility] [Primary Care Provider] - <Donna Elena - Last Filed: 08/23/16 07:56> Date of Encounter: 08/22/16 Time of Encounter: 15:00 - Assessment and Plan (1) Lower GI bleed Current Visit: Yes Status: Acute patient needs to stay off anticoagulation for a little while, his Hb is stable and he is no longer passing bright red blood per rectum but rather dark old residual blood from his colon advance diet no plans for colonoscopy at this time, will reconsider if patient were to continue to bleed after inr reversed, but he is not. general surgery signing off at this time please call if needed (2) Mass of right lung Current Visit: Yes Status: Acute (3) Acute blood loss anemia Current Visit: No Status: Acute (4) Chronic atrial fibrillation Current Visit: No Status: Chronic (5) Coagulopathy Current Visit: No Status: Chronic Subjective Narrative: patient denies any abdominal pain he had a stool today which he describes as dark, old blood tolerating diet no nausea Objective Vital Signs - Last 8 Hours Temp Pulse Resp BP Pulse Ox 08/23/16 07:16 98.0 F 82 16 115/75 97 08/23/16 04:04 97.0 F L 70 14 127/82 98 08/23/16 00:20 98 Intake and Output 08/22/16 08/22/16 08/23/16 15:59 23:59 07:59 Intake Total 1242 / 1242 340 / 340 440 / 440 Output Total 400 / 400 600 / 600 400 / 400 Balance 842 / 842 -260 / -260 40 / 40 Intake: IV Fluids 522 / 522 KCl 40 MEQ Xylocaine 2 ML 522 / 522 In Dextrose 5% 500 ML @ 130.5 mls/hr IVPB ONCE ONE Rx#:[id number] Oral 720 / 720 340 / 340 440 / 440 Output: Urine 400 / 400 600 / 600 400 / 400 Other: Meal Lunch Stool Size Moderate Small Small Stool Consistency formed loose soft Stool Color Dark Red Blood Brown Brown Blood Tinged Blood Tinged # Bowel Movements 1 Weight 112.151 kg Blood Glucose* 117 Patient Weight 08/23/16 23:59 Weight 112.151 kg - General physical appearance well developed, well nourished, no distress, obese - Eyes PERRL, normal ocular movement - ENT normal mucosa, atraumatic, normocephalic - Respiratory clear to auscultation - Cardiovascular Cardiovascular exam: Present: RRR - Abdomen Abdomen: Present: bowel sounds present, soft, non tender - Neurologic CN 2-12 grossly intact - Musculoskeletal normal posture - Psychiatric oriented to time, oriented to person, speech is normal, memory intact - Labs 08/23/16 04:16 08/22/16 04:53 - Attending Attestation I examined this patient and my medical decision-making was reviewed with the GOODYEAR WELTER/PA/Advanced Practice Nurse/Resident Physician. I agree with the documented findings, disposition and treatment plan as described except to the extent set forth below.
--- NOTE | 2016-08-22 12:10 | Internal Med Progress Note ---
Date of Encounter: 08/22/16 Time of Encounter: 12:09 - Assessment and plan (1) Lower GI bleed Current Visit: Yes Status: Acute Assessment and plan: Surgery eval appreciated Awaiting surgery input in regards to colonoscopy as patient continues to have bright red blood per rectum despite reversal of INR consultation. continue to hold anticoagulation Awaiting surgery input in regards to continuation of anticoagulation after discharge Closely monitor H&H transfuse as needed (2) Acute blood loss anemia Current Visit: No Status: Acute Assessment and plan: as listed above (3) Mass of right lung Current Visit: Yes Status: Acute Assessment and plan[facility] 12[facility] noncalcified nodule in the right upper lobe. This is a new finding, and it is consistent with pulmonary neoplasm until proven otherwise. Biopsies recommended. As per interventional radiologist Dr. Steele, the RUL nodule is too far deep and is too small for an easy biopsy and due to it's location, there is a concern for pneumothorax with the biopsy. The CT chest did however also show some axillary lymphadenopathy and if that is new then biopsy of these nodes would help with the diagnosis. Awaiting records from the [facility] to see if the previous CT chest had this axillary lymphadenopathy. (4) Hypokalemia Current Visit: Yes Status: Acute Assessment and plan: K supplemented continue to monitor electrolytes and replace as needed (5) DVT prophylaxis Current Visit: No Status: Acute Assessment and plan: IPCD (6) Chronic atrial fibrillation Current Visit: No Status: Chronic Assessment and plan: Rate controlled holding anticoagulation due to recent bleed continue home medications (7) Chronic kidney disease Current Visit: No Status: Chronic Assessment and plan: Kidney function at baseline continue to monitor Qualifiers: Chronic kidney disease stage: stage 3 (moderate) Qualified Code(s): N18.3 - Chronic kidney disease, stage 3 (moderate) (8) Chronic obstructive pulmonary disease Current Visit: No Status: Chronic Assessment and plan: not in acute exacerbation bronchodilators as needed O2 supplementation as needed continue to monitor Qualifiers: COPD type: unspecified COPD Qualified Code(s): J44.9 - Chronic obstructive pulmonary disease, unspecified (9) Hypertension Current Visit: No Status: Chronic Assessment and plan: BP within acceptable range despite holding home antihypertensives will continue to monitor BP Qualifiers: Hypertension type: essential hypertension Qualified Code(s): I10 - Essential (primary) hypertension (10) Obesity (BMI 30.0-34.9) Current Visit: No Status: Chronic (11) Schizophrenia Current Visit: No Status: Chronic Assessment and plan: continue home medications Qualifiers: Schizophrenia type: unspecified Qualified Code(s): F20.9 - Schizophrenia, unspecified - Subjective Interval history: Patient seen and examined at bedside. Reported to have two bowel movements with blood and melanotic appearance earlier today. Denies any pain or discomfort. - Constitutional Vitals: Temp Pulse Resp BP Pulse Ox 98.6 F 87 18 144/80 93 L 08/22/16 10:34 08/22/16 10:34 08/22/16 10:34 08/22/16 10:34 08/22/16 10:34 General appearance: Present: A&O X 3, morbidly obese, pleasant, no acute distress - Head Head exam: Present: atraumatic, normocephalic - Eye Eye exam: Present: normal appearance, conjuntiva pink, sclera anicteric - Respiratory Respiratory exam: Present: CTAB. Absent: respiratory distress, wheezes - Cardiovascular Cardiovascular exam: Present: RRR, +S1, +S2 - GI/Abdominal GI/Abdominal exam: Present: distended (obese), normal bowel sounds, soft. Absent: tenderness - Extremities Exam Extremities exam: Present: warm, radial pulses palpable and symetrical. Absent : cyanotic, pedal edema - Neurological Exam Neurological exam: Present: alert, oriented X3 - Psychiatric Psychiatric exam: Present: normal affect, normal mood Internal Medicine: Result - Labs CBC & Chem 7: 08/22/16 08:57 08/22/16 04:53 Labs: Short CBC 08/21/16 08/22/16 08/22/16 Range/Units 17:42 04:53 08:57 WBC 5.3 (4.3-11.1) K/mcL Hgb 9.0 L 7.8 L 8.8 L (12.9-16.9) g/dL Hct 27.8 L 24.4 L 26.9 L (37.5-50.1) % Plt Count 93 L (140-400) K/mcL Neutrophils # 3.4 (1.6-8.9) K/mcL BMP 08/22/16 04:53 Sodium 140 Potassium 3.2 L Chloride 108 Carbon Dioxide 27 BUN 15 Creatinine 1.06 Glucose 111 H Calcium 8.5 L - ABG Interpretation ABG results: PT/INR, D-dimer PT 11.5 Seconds (9.4-12.1) 08/22/16 04:53 - VTE Reasons for not Prescribing Prophylaxis: Not indicated-Anticoagulated or INR therapeutic Documentation of Mechanical Device: Intermittent pneumatic compression device Consult Discharge Plan - Plan [facility]errals: [facility] [Primary Care Provider] -
[2016-08-22 18:22] LABS: Hematocrit 28.2 % (37.5-50.1)
[2016-08-22] MEDS: risperiDONE 1 MG TABLET PO SCH (20:47)
[2016-08-23 04:51] LABS: Hematocrit 25.9 % (37.5-50.1); Hemoglobin 8.2 g/dL (12.9-16.9)
[2016-08-23] MEDS: Tiotropium 18 MCG inhalation IH SCH (08:12)
[2016-08-23] MEDS: Fluticasone Propionate Nasal 50 MCG/SPRAY BOTTLE NS SCH (08:17)
--- NOTE | 2016-08-23 11:03 | Discharge Summary ---
Date of Encounter: 08/23/16 Time of Encounter: 11:02 - Discharge Diagnosis (1) Lower GI bleed Priority: Primary Status: Acute (2) Acute blood loss anemia Priority: Primary Status: Acute (3) Mass of right lung Priority: Secondary Status: Chronic (4) Hypokalemia Priority: Secondary Status: Acute (5) DVT prophylaxis Priority: Secondary Status: Acute (6) Chronic atrial fibrillation Priority: Secondary Status: Chronic (7) Chronic kidney disease Priority: Secondary Status: Chronic Qualifiers: Chronic kidney disease stage: stage 3 (moderate) Qualified Code(s): N18.3 - Chronic kidney disease, stage 3 (moderate) (8) Chronic obstructive pulmonary disease Priority: Secondary Status: Chronic Qualifiers: COPD type: unspecified COPD Qualified Code(s): J44.9 - Chronic obstructive pulmonary disease, unspecified (9) Hypertension Priority: Secondary Status: Chronic Qualifiers: Hypertension type: essential hypertension Qualified Code(s): I10 - Essential (primary) hypertension (10) Obesity (BMI 30.0-34.9) Priority: Secondary Status: Chronic (11) Schizophrenia Priority: Secondary Status: Chronic Qualifiers: Schizophrenia type: unspecified Qualified Code(s): F20.9 - Schizophrenia, unspecified - Discharge Medications Home Medications: Albuterol Neb [Proventil Neb] 2.5 mg IH QID PRN 06/21/15 [History] Albuterol Sulfate [Albuterol Inhaler] 2 puff IH QID PRN 06/21/15 [History] Allopurinol [Zyloprim 100 MG] 200 mg PO DAILY 06/21/15 [History] Atorvastatin Calcium [Lipitor] 80 mg PO DAILY 06/21/15 [History] Loratadine [Claritin] 10 mg PO DAILY PRN 06/21/15 [History] Metoprolol [Lopressor] 37.5 mg PO BID 06/21/15 [History] Omeprazole [PriLOSEC] 20 mg PO DAILY 06/21/15 [History] Paroxetine [Paxil] 10 mg PO QAM 06/21/15 [History] Pyridoxine HCl [Vitamin B-6] 50 mg PO QAM 06/21/15 [History] RisperiDONE [Risperdal] 1 mg PO HS 06/21/15 [History] Vitamin E (Dl,Tocopheryl Acet) [Vitamin E] 400 unit PO HS 06/21/15 [History] Fluticasone Propionate Nasal [Flonase] 50 mcg NS BID 08/20/16 [History] Mineral Oil/Petrolatum,White [Refresh P.m. Ointment] 1 appl BOTH EYES HS [History] Tiotropium [Spiriva] 18 mcg IH DAILY 08/20/16 [History] Allergies/Adverse Reactions: Allergies No Known Allergies Allergy (Verified 06/21/15 12:57) Procedures/tests Complete & Pending: Procedures Performed prior 72 hours Category Date Time Status ECG 12 lead ECG [ECG] Routine Y 08/20/16 14:38 Completed Date of admission: 08/20/16 18:41 [facility]: [facility] Consults: 08/20/16 18:42 Consult to Geophysical E Logger [CONS] Routine Reason for SW Consult: discharge planning 08/21/16 16:00 Consult to Interventional Radiology [CONS] Routine Consulting Provider: Radiology Interventional Cols Reason for Consult: CT chest showed new finding of 12mm noncalcified nodule on RUL, needs lung biopsy Call Completed: Yes Discharging clinician: Viviane Wilkinson Anticipated date of discharge: 08/23/16 - Patient Status Disposition: Home, Self-Care Condition: Good Functional capacity at discharge: uses cane/walker Overall status at discharge: patient is back to baseline - Discharge Instructions Follow Up With: [facility]Primary Care Provider] - 08/27/16 2:30 pm ([facility] appointment for the GI follow up with Dr. Perez. Thank you) Additional Instructions: Please follow up with your primary care physician within one week after your discharge from the hospital. Please ask your primary care physician to review your last CT chest report and compared it to the old records that they may have. Please follow up with surgery and GI within one week after your discharge from the hospital. Please continue to hold Coumadin and Lovenox until you have been cleared by surgery and GI to restart these medications. Please closely monitor your Blood pressure, if SBP<120, hold Metoprolol. Please resume all other medications as prescribed by your primary care physician. - Diet and Activity Activity: resume usual activities as tolerated Diet: low fat, low cholesterol, low salt diet Hospital course: Mr. Pace is a 76 year old male with extensive medical history including Afib on oral anticoagulation who was sent to the ER from the [facility] for evaluation of LGIB. Patient was reported to recently undergo colonoscopy on Aug 14 and had a polypectomy, was restarted on Coumadin bridging with Lovenox. Upon arrival to the ER, surgery consultation was requested by the ER physician. Patient's H&H remained stable and his bleeding resolved. No surgical intervention was recommended during this hospitalization. Patient's anticoagulation is to remain on hold until cleared by surgery and GI after his outpatient follow-up. Patient is to follow up with primary care physician, GI, surgery at the [facility]. Patient was also noted to have an incidental finding of a 12 mm nodule in right upper lobe of the lung on CT chest. Interventional radiology consultation was requested for biopsy. Due to the location of the nodule, patient was at high risk of a pneumothorax due to which no additional intervention was taken place. No prior imaging records were available to compare the CT chest findings. Patient is to follow-up with primary care physician at the [facility] in regards to the CT chest findings and undergo further testing as outpatient. At this time patient is stable, reported of no blood in his stool today, tolerated regular diet, and will be discharged back to the [facility] residential today. He is to follow- up with GI and PCP after discharge. The surgery physician from [facility] requested follow-up with patient's primary team after discharge. - Time Spent with Patient Total time spent providing and/or coordinating discharge services: - Constitutional Vitals: Temp Pulse Resp BP Pulse Ox 98.0 F 82 16 115/75 98 08/23/16 07:16 08/23/16 07:16 08/23/16 08:12 08/23/16 07:16 08/23/16 08:12 General appearance: Present: A&O X 3, morbidly obese, pleasant, no acute distress - Head Head exam: Present: atraumatic, normocephalic - Eye Eye exam: Present: normal appearance, conjuntiva pink, sclera anicteric - Respiratory Respiratory exam: Present: CTAB. Absent: respiratory distress, wheezes - Cardiovascular Cardiovascular exam: Present: RRR, +S1, +S2 - GI/Abdominal GI/Abdominal exam: Present: distended (obese), normal bowel sounds, soft. Absent: tenderness - Extremities Exam Extremities exam: Present: warm, radial pulses palpable and symetrical. Absent : calf tenderness, pedal edema, tenderness - Neurological Exam Neurological exam: Present: oriented X3 - Psychiatric Psychiatric exam: Present: normal affect, normal mood - VTE Reasons for not Prescribing Prophylaxis: Not indicated-Anticoagulated or INR therapeutic Documentation of Mechanical Device: Intermittent pneumatic compression device
[2016-08-23 11:26] VITALS: BP 134/77
--- NOTE | 2016-08-23 11:27 | General Surgery Progress Note ---
Date of Encounter: 08/23/16 Time of Encounter: 09:05 - Assessment and Plan (1) Lower GI bleed Current Visit: Yes Status: Acute Tolerating diet, no abdominal pain. Hgb 8.2 this AM Reverse coumadin therapy- Vit. K and FFP given / Will continue to monitor- no plans for colonoscopy at this time; will consider if patient continues to bleed with reversal of INR (2) Acute blood loss anemia Current Visit: No Status: Acute HGB 9.7>8.5>9.0>7.8>8.8>8.2 (3) Chronic atrial fibrillation Current Visit: No Status: Chronic Hold coumadin Management per medicine service (4) Chronic kidney disease Current Visit: No Status: Chronic Management per medicine service Qualifiers: Chronic kidney disease stage: stage 3 (moderate) Qualified Code(s): N18.3 - Chronic kidney disease, stage 3 (moderate) (5) Chronic obstructive pulmonary disease Current Visit: No Status: Chronic Management per medicine service Qualifiers: COPD type: unspecified COPD Qualified Code(s): J44.9 - Chronic obstructive pulmonary disease, unspecified (6) Coagulopathy Current Visit: No Status: Chronic Vitamin K and FFP given 08/20 INR- 1.1 yesterday Hold coumadin (7) Hypertension Current Visit: No Status: Chronic normotensive Management per medicine service Qualifiers: Hypertension type: essential hypertension Qualified Code(s): I10 - Essential (primary) hypertension (8) Schizophrenia Current Visit: No Status: Chronic Qualifiers: Schizophrenia type: unspecified Qualified Code(s): F20.9 - Schizophrenia, unspecified (9) Mass of right lung Current Visit: Yes Status: Chronic Medicine service aware. Subjective Patient reports: no new complaints, tolerating a regular diet, voiding w/o difficulty, flatus, bowel movement, blood in stool, afebrile Objective Vital Signs - Last 8 Hours Temp Pulse Resp BP Pulse Ox 08/23/16 08:12 16 98 08/23/16 07:16 98.0 F 82 16 115/75 97 08/23/16 04:04 97.0 F L 70 14 127/82 98 Intake and Output 08/22/16 08/23/16 08/23/16 23:59 07:59 15:59 Intake Total 340 / 340 440 / 440 360 / 360 Output Total 600 / 600 400 / 400 275 / 275 Balance -260 / -260 40 / 40 85 / 85 Intake: Oral 340 / 340 440 / 440 360 / 360 Output: Urine 600 / 600 400 / 400 Catheter 275 / 275 Other: Meal Breakfast Percent of Meal Consumed 100% Stool Size Small Small Moderate Stool Consistency loose soft formed Stool Color Brown Brown Brown Blood Tinged Blood Tinged Black # Bowel Movements 1 Weight 112.151 kg Patient Weight 08/23/16 23:59 Weight 112.151 kg - General physical appearance well developed, well nourished, no distress - Eyes normal ocular movement - ENT normal mucosa, atraumatic, normocephalic - Labs 08/23/16 04:16 08/22/16 04:53 - VTE Reasons for not Prescribing Prophylaxis: Not indicated-Anticoagulated or INR therapeutic Documentation of Mechanical Device: Intermittent pneumatic compression device Consult Discharge Plan - Plan Additional Instructions: Please follow up with your primary care physician within one week after your discharge from the hospital. Surgery, GI f/u no coumadin CT chest nodule follow up [facility]errals: [facility] [Primary Care Provider] - 08/27/16 2:30 pm
--- NOTE | 2016-08-23 13:30 | Physician Discharge Referral ---
ExtendedCare Referral Info Transfer To: [facility] Provider in Charge after Transfer: PCP - Diagnosis (1) Lower GI bleed Priority: Primary Status: Acute (2) Acute blood loss anemia Status: Acute (3) Mass of right lung Status: Chronic (4) Hypokalemia Priority: Secondary Status: Acute (5) DVT prophylaxis Priority: Secondary Status: Acute (6) Chronic atrial fibrillation Priority: Secondary Status: Chronic (7) Chronic kidney disease Priority: Secondary Status: Chronic (8) Chronic obstructive pulmonary disease Priority: Secondary Status: Chronic (9) Hypertension Priority: Secondary Status: Chronic (10) Obesity (BMI 30.0-34.9) Priority: Secondary Status: Chronic (11) Schizophrenia Priority: Secondary Status: Chronic - Transfer Medications Home Medications: Albuterol Neb [Proventil Neb] 2.5 mg IH QID PRN 06/21/15 [History] Albuterol Sulfate [Albuterol Inhaler] 2 puff IH QID PRN 06/21/15 [History] Allopurinol [Zyloprim 100 MG] 200 mg PO DAILY 06/21/15 [History] Atorvastatin Calcium [Lipitor] 80 mg PO DAILY 06/21/15 [History] Loratadine [Claritin] 10 mg PO DAILY PRN 06/21/15 [History] Metoprolol [Lopressor] 37.5 mg PO BID 06/21/15 [History] Omeprazole [PriLOSEC] 20 mg PO DAILY 06/21/15 [History] Paroxetine [Paxil] 10 mg PO QAM 06/21/15 [History] Pyridoxine HCl [Vitamin B-6] 50 mg PO QAM 06/21/15 [History] RisperiDONE [Risperdal] 1 mg PO HS 06/21/15 [History] Vitamin E (Dl,Tocopheryl Acet) [Vitamin E] 400 unit PO HS 06/21/15 [History] Fluticasone Propionate Nasal [Flonase] 50 mcg NS BID 08/20/16 [History] Mineral Oil/Petrolatum,White [Refresh P.m. Ointment] 1 appl BOTH EYES HS [History] Tiotropium [Spiriva] 18 mcg IH DAILY 08/20/16 [History] Allergies/Adverse Reactions: Allergies No Known Allergies Allergy (Verified 06/21/15 12:57) - Respiratory Orders Smoking Cessation: Smoking cessation has been advised. For more information, call the [place] Tobacco Quit Line at 2-813-DDMN-NOW. - Lab Orders Lab Orders: CBC - Treatments List/Other: Please follow up with your primary care physician within one week after your discharge from the hospital. Please ask your primary care physician to review your last CT chest report and compared it to the old records that they may have. The placement of the 12mm RUL lung nodule is too deep and at risk of pneumothorax if it were to be biopsied as per the interventional radiologist at [facility]. Please follow up with surgery and GI within one week after your discharge from the hospital. Please continue to hold Coumadin and Lovenox until you have been cleared by surgery and GI to restart these medications. Please closely monitor your Blood pressure, if SBP<120, hold Metoprolol. Please resume all other medications as prescribed by your primary care physician. CERTIFICATION: I certify that the transfer of the above named patient to an Extended Care Facility is necessary for the continuing treatment of the diagnosis listed. The above information is true and accurate reflection of patient's current condition. Confidential - Redisclosure prohibited without a patient's written consent.
== END 2016-08-23 15:08 | disposition home or self-care (01) | DRG 378 ==
LOC: 3ANU 14:35 → EMEROO 14:35 → 3ANU 17:47 → SUATTDRO 18:41
PROVIDERS: ADMIT Internal Medicine; ATTEND Internal Medicine

== ENCOUNTER 2017-02-16 13:01 | Inpatient (IN) ==
--- NOTE | 2017-02-16 13:12 | Emergency Department Note ---
Disposition Clinical Impression: Anemia, Chest wall hematoma, History of mitral valve replacement Disposition: Admitted As Inpatient Condition: Fair General Adult HPI - General Chief complaint: ED General Medical Stated complaint: hypotension, hematoma, low HGB Time Seen by Provider: 02/16/17 13:07 Nursing Notes Reviewed: Yes Vital Signs Reviewed: Yes - Related Data Home Medications Medication Instructions Recorded Confirmed Albuterol Sulfate [Albuterol 2 puff IH QID PRN 06/21/15 02/11/17 Inhaler] Atorvastatin Calcium [Lipitor] 40 mg PO HS 06/21/15 02/11/17 Metoprolol [Lopressor] 37.5 mg PO BID 06/21/15 02/11/17 Paroxetine [Paxil] 10 mg PO QAM 06/21/15 02/11/17 Pyridoxine HCl [Vitamin B-6] 50 mg PO QAM 06/21/15 02/11/17 RisperiDONE [Risperdal] 1 mg PO HS 06/21/15 02/11/17 Vitamin E (Dl,Tocopheryl Acet) 400 unit PO HS 06/21/15 02/11/17 [Vitamin E] Fluticasone Propionate Nasal 50 mcg NS BID 08/20/16 02/11/17 [Flonase] Tiotropium [Spiriva] 18 mcg IH DAILY 08/20/16 02/11/17 Warfarin [Coumadin] 10 mg PO SUMOTUWETHFR 12/27/16 02/11/17 Budesonide/Formoterol 160/4.5 2 puff IH BIDR 02/11/17 02/11/17 [Symbicort 160/4.5] Docusate [Colace] 200 mg PO DAILY PRN 02/11/17 02/11/17 Enoxaparin [Lovenox] 120 mg SQ Q12HR 02/11/17 02/11/17 Ferrous Sulfate [Iron] 325 mg PO BID 02/11/17 02/11/17 Furosemide [Lasix] 40 mg PO BID 02/11/17 02/11/17 Warfarin [Coumadin] 7.5 mg PO SA 02/11/17 02/11/17 Previous Rx's Medication Instructions Recorded Docusate [Colace] 100 mg PO BID #30 capsule 02/11/17 HYDROcodone/Acet 5/325 mg [[place] 1 tab PO Q4H PRN #25 tab 02/11/17 5-325 mg] Allergies Allergy/AdvReac Type Severity Reaction Status Date / Time No Known Allergies Allergy Verified 02/11/17 13:29 Past Medical History - Past Medical History Medical history: Reports: atrial fibrillation, COPD, coronary artery disease, diabetes, GERD, GI bleed, hyperlipidemia, renal disease, thyroid disease, valvular heart disease, other Surgical history: Reports: pacemaker/AICD, other Psychiatric history: Reports: anxiety, depression, panic disorder, prior suicide attempt, schizophrenia - Social History Smoking Status: Former smoker Smokeless Tobacco Status: No Alcohol use: Reports: none Drug use: Reports: none Course Vital Signs Temperature 97.9 F 02/16/17 13:09 Pulse Rate 88 02/16/17 13:09 Respiratory Rate 20 02/16/17 13:09 Blood Pressure 100/64 02/16/17 13:09 O2 Sat by Pulse Oximetry 94 02/16/17 13:09 Temperature 97.9 F 02/16/17 13:09 Pulse Rate 87 02/16/17 15:17 Respiratory Rate 18 02/16/17 15:17 Blood Pressure 107/46 02/16/17 15:17 O2 Sat by Pulse Oximetry 92 02/16/17 15:17 Oxygen Delivery Oxygen Delivery Nasal Cannula Medical Decision Making - MDM Narrative Medical decision making narrative: I examined this patient and my medical decision-making was reviewed with the Resident Physician. I agree with the documented findings, disposition and treatment plan as described except to the extent set forth below. Patient was seen and evaluated on EMS arrival by Dr. Simpson and myself, I agree with his evaluation and management plan, suprasternal patient's stay, patient was colder to me by the [facility]. He had a biopsy of his right axilla for lymphadenopathy consistent with lymphoma that was done here by Dr. Sims earlier in the week. He has continued to have bleeding into the pectoralis muscle on the right is Much larger. His hemoglobin struck by 3.. Initially stated he was hypotensive in the 80s and did not have IV access. However medics that his pressure was in the 120s. He is having some pain in the area we will give him pain medications he had CBC and lab work done his hemoglobin went from 9 down to 6.3. His creatinine is elevated. We will see if that is new or not. He will get typed and screened for blood transfusion. CT the area and will speak with surgery. Chest CT 02/16/17 13:07 IMPRESSION: Extremely large right chest wall hematoma with moderate surrounding inflammation. The hematoma predominantly lies between the pectoralis major and minor muscles. Mild atelectasis within the right lung. Persistent 12 mm subpleural right upper lobe pulmonary nodule. Moderate cardiomegaly. D/ / Estevan Sequeira MD / Estevan Sequeira MD Interpreting Provider: Estevan Sequeira MD 1434 hrs.: We will speak with surgery after viewing the CT scan. He will need admission. He had an ultrasound-guided IV placed per nursing staff to the fact that he had poor IV access and they are unable to get an IV in place from the [facility]. 1530 hrs.: Patient is more comfortable now, and surgery has seen him in the department. They are intermittent to medicine at this time with surgery consult in. Patient's in agreement with plan. Impression is status post axilla biopsy with large right pectoralis hematoma, and anemia. Patient is getting his blood transfusion and tolerating that. Patient's critical care time excluding separately billable procedure is 40 minutes. - Lab Data Lab Results 02/16/17 Range/Units 14:56 Blood Type B POSITIVE Antibody Screen NEGATIVE Crossmatch See Detail
--- NOTE | 2017-02-16 13:13 | Emergency Department Note ---
Disposition Clinical Impression: History of mitral valve replacement Anemia Qualifiers: Anemia type: unspecified type Qualified Code(s): D64.9 - Anemia, unspecified Chest wall hematoma Qualifiers: Encounter type: initial encounter Laterality: right Qualified Code(s): S20.211A - Contusion of right front wall of thorax, initial encounter Disposition: Admitted As Inpatient Condition: Fair Time of Disposition: 15:36 General Adult HPI - General Chief complaint: ED General Medical Stated complaint: hypotension, hematoma, low HGB Time Seen by Provider: 02/16/17 13:07 Source: patient, EMS Mode of arrival: EMS Limitations: no limitations Nursing Notes Reviewed: Yes Vital Signs Reviewed: Yes - History of Present Illness HPI Narrative: 76-year-old male presents to the ED via EMS from the [facility] inpatient for hypotension, hematoma and low hemoglobin. Patient is a poor historian. Patient was recently admitted to the [facility] for pneumonia after a surgery performed to his right chest wall. Upon medical review appears he had a recent biopsy to his right axilla 02/11/[address] Elena which appears to be possible lymphoma. Over the past 3 days he has been developing increase swelling and expanding bruising to his right chest wall. Today he was hypotensive systolic 80 in a hemoglobin of 6.3. He denies any headache, changes vision, chest pain, shortness of breath. Denies any abdominal pain or changes in bowel or bladder. It appears that he has been getting Lovenox injections as he is in the patient. Denies any history of atrial fibrillation, blood clots or cardiac ischemic disease. On arrival patient has extensive hematoma to the right chest wall. Labs are performed at the [facility]. Will get a type and screen for 2 units packed red blood cells. Also get a CT of the chest thorax without contrast as his creatinine level was elevated 3.2 from labs at the [facility]. review of his medical records shows history of atrial fibrillation, diabetes, CKD, COPD, hypertension, history of mechanical mitral valve replacement. - Related Data Home Medications Medication Instructions Recorded Confirmed Albuterol Sulfate [Albuterol 2 puff IH QID PRN 06/21/15 02/11/17 Inhaler] Atorvastatin Calcium [Lipitor] 40 mg PO HS 06/21/15 02/11/17 Metoprolol [Lopressor] 37.5 mg PO BID 06/21/15 02/11/17 Paroxetine [Paxil] 10 mg PO QAM 06/21/15 02/11/17 Pyridoxine HCl [Vitamin B-6] 50 mg PO QAM 06/21/15 02/11/17 RisperiDONE [Risperdal] 1 mg PO HS 06/21/15 02/11/17 Vitamin E (Dl,Tocopheryl Acet) 400 unit PO HS 06/21/15 02/11/17 [Vitamin E] Fluticasone Propionate Nasal 50 mcg NS BID 08/20/16 02/11/17 [Flonase] Tiotropium [Spiriva] 18 mcg IH DAILY 08/20/16 02/11/17 Warfarin [Coumadin] 10 mg PO SUMOTUWETHFR 12/27/16 02/11/17 Budesonide/Formoterol 160/4.5 2 puff IH BIDR 02/11/17 02/11/17 [Symbicort 160/4.5] Docusate [Colace] 200 mg PO DAILY PRN 02/11/17 02/11/17 Enoxaparin [Lovenox] 120 mg SQ Q12HR 02/11/17 02/11/17 Ferrous Sulfate [Iron] 325 mg PO BID 02/11/17 02/11/17 Furosemide [Lasix] 40 mg PO BID 02/11/17 02/11/17 Warfarin [Coumadin] 7.5 mg PO SA 02/11/17 02/11/17 Previous Rx's Medication Instructions Recorded Docusate [Colace] 100 mg PO BID #30 capsule 02/11/17 HYDROcodone/Acet 5/325 mg [[place] 1 tab PO Q4H PRN #25 tab 02/11/17 5-325 mg] Allergies Allergy/AdvReac Type Severity Reaction Status Date / Time No Known Allergies Allergy Verified 02/11/17 13:29 All systems ED: reviewed and negative except as stated. Review of Systems: As Per HPI Constitutional: Denies: fever, chills Cardiovascular: Reports: chest pain Respiratory: Reports: dyspnea. Denies: cough Gastrointestinal: Denies: abdominal pain, nausea, vomiting, diarrhea, hematemesis, melena, hematochezia Genitourinary: Denies: urgency, dysuria Integumentary: Denies: rash, abrasion Neurological: Denies: headache Past Medical History - Past Medical History Attestation: Yes The following information was validated with the patient. Source: unable to obtain Medical history: Reports: atrial fibrillation, COPD, coronary artery disease, diabetes, GERD, GI bleed, hyperlipidemia, renal disease, thyroid disease, valvular heart disease, other Surgical history: Reports: pacemaker/AICD, other Psychiatric history: Reports: anxiety, depression, panic disorder, prior suicide attempt, schizophrenia - Social History Smoking Status: Former smoker Smokeless Tobacco Status: No Alcohol use: Reports: none Drug use: Reports: none Physical Exam - General Limitations: no limitations General appearance: alert, in no apparent distress - Head Head exam: atraumatic, normocephalic, normal inspection - Eye Eye exam: Present: normal appearance, PERRL, EOMI - ENT ENT exam: normal exam, normal oropharynx, mucous membranes moist - Neck Neck exam: Present: normal inspection, full ROM, trachea midline. Absent: tenderness - Expanded Chest Exam Trauma: Present: ecchymosis (Right chest wall, extensive hematoma) - Respiratory Respiratory exam: Present: normal lung sounds bilaterally - Expanded Respiratory Exam Location: decreased breath sounds: Right (Difficult to auscultated over the hematoma) - Cardiovascular Cardiovascular exam: Present: regular rate, normal rhythm, clicks (Mitral) - Abdominal Exam Abdominal exam: Present: soft, Non-Tender, normal bowel sounds, other ( Ecchymosis to lower abdomen from Lovenox). Absent: tenderness, distention, guarding, rebound, rigidity - Extremities Exam Extremities exam: Present: normal inspection, full ROM, normal capillary refill. Absent: tenderness, pedal edema - Back Exam Back exam: Present: normal inspection, full ROM. Absent: tenderness, vertebral tenderness - Neurological Exam Neurological exam: Present: alert, oriented X3 - Expanded Skin Exam 1 - Ecchymosis to the right lateral chest wall Course - Reevaluation(s) Reevaluation #1: Informed that patient was using the bathroom in the ED room on the South side. He was on the toilet and the infrastructure tech stepped out to give privacy. He was instructed to pull the string to assist back to bed. Patient however attempted to get up on his own and fell. He has a small superficial skin laceration to his left knee, no need for repair. Denies any head injury or neck pain. Time: 15:13 - Consultations Consultation #1: Spoke to Dr. Lai, surgeon, who is covering for Dr. Elena. Nothing at the moment is a surgical emergency. Given his symptoms concern for supratherapeutic anticoagulation with Lovenox and Warfarin. Review of medical records, INR is elevated at 2.6 with Lovenox on board. Recommend to strictly monitor PT/INR and PTT. Give heparin at this time given his hematoma and wait for INR to come down. Hold on Lovenox and Warfarin. History of mitral valve replacement and atrial fibrailation. Admit to hospitalist. Time: 15:10 Consultation #2: Spoke with on-call hospitalist nabila Mendoza to admit for anemia, chest wall hematoma, hx of mitral valve. No further orders at this time Time: 15:40 Vital Signs Temperature 97.9 F 02/16/17 13:09 Pulse Rate 88 02/16/17 13:09 Respiratory Rate 20 02/16/17 13:09 Blood Pressure 100/64 02/16/17 13:09 O2 Sat by Pulse Oximetry 94 02/16/17 13:09 Temperature 97.9 F 02/16/17 13:09 Pulse Rate 87 02/16/17 15:17 Respiratory Rate 18 02/16/17 15:17 Blood Pressure 107/46 02/16/17 15:17 O2 Sat by Pulse Oximetry 92 02/16/17 15:17 Oxygen Delivery Oxygen Delivery Nasal Cannula Medical Decision Making - Medical Records Medical records reviewed: Yes I reviewed the patient's medical records. Review of [facility] medical record, history of atrial fibrillation and mitral valve mechanical valve. - Lab Data Lab results reviewed: Yes I reviewed the patient's lab results. Lab results narrative: BUN 40 Cr 3.2 Hgb 6.3 from 9.8 (02/15/17) INR 2.6 Lab Results 02/16/17 Range/Units 14:56 Blood Type B POSITIVE Antibody Screen NEGATIVE Crossmatch See Detail - Radiology Data Radiology results reviewed: Yes I reviewed the patient's radiology results. Chest CT 02/16/17 13:07 IMPRESSION: Extremely large right chest wall hematoma with moderate surrounding inflammation. The hematoma predominantly lies between the pectoralis major and minor muscles. Mild atelectasis within the right lung. Persistent 12 mm subpleural right upper lobe pulmonary nodule. Moderate cardiomegaly. D/ / Estevan Sequeira MD / Estevan Sequeira MD Interpreting Provider: Estevan Sequeira MD - EKG Data EKG #1 EKG attestation: Yes I reviewed and interpreted this EKG. EKG results narrative: EKG performed 1310 ventricularly paced rhythm 85 bpm, no Sgarbossa criteria. Compared to old EKG performed 08/20/2016 no acute ischemic changes.
[2017-02-16] MEDS ORDERED: 0.9 % Sodium Chloride 1,000 ML IVC ONE (15:24)
[2017-02-16] MEDS ORDERED: *HR* HYDROcodone/Acet 5/325 mg TABLET PO PRN ×2 (16:50→18:04)
[2017-02-16] MEDS ORDERED: Naloxone 0.4 MG/ML INJ IVP PRN (16:51)
[2017-02-16] MEDS ORDERED: Ondansetron 4 MG/2 ML VIAL IVP PRN (16:51)
[2017-02-16] MEDS ORDERED: Lidocaine 1% 20 ML MDV INFILT ONE (17:15)
--- NOTE | 2017-02-16 17:23 | General Surgery Consult Note ---
<TejalJazminHerberth - Last Filed: 02/16/17 17:48> Date of Encounter: 02/16/17 Time of Encounter: 15:20 Assessment and Plan (1) Chest wall hematoma Current Visit: Yes Status: Acute Tamponade of bleed likely achieved on its own Admit patient Hold long acting anticoagulation in favor of heparin Follow PT/INR and PTT Consider FPP as necessary for elevated PT/INR Transfuse as necessary for severe anemia No surgery indicated at this time, though will follow along clinically for changes Qualifiers: Encounter type: initial encounter Laterality: right Qualified Code(s): S20.211A - Contusion of right front wall of thorax, initial encounter History of Present Illness Consult date: 02/16/17 Reason for consult: other (Axillarry/Chest Hematoma) History of present illness: Patient was seen and evaluated in the ED. Julius Pace is a 76 yo man on coumadin for prosthetic mitral valve that presents with large area of ecchymosis on his anterior chest via EMS from [place], where he was being treated for PNA. He recently had a biopsy of an axillary lymph node by Dr. Elena on in the area of question. The biopsy showed possible lymphoma. It is unclear over what time period the bruising and swelling developed, as the patient is a poor historian. He has chronic schizophrenia and lives at a retirement per office note of Dr. Guerin - [facility]. He does state that the area is painful, rating 8/10 with a sharp quality. Hemoglobin was measured at 6.3, INR elevated at 2.6 with both lovenox and coumadin onboard. Patient as been normotensive since arriving at [facility]. CT chest shows large hematoma in the right chest wall. Past Med Surg Social Fam HX - Past Medical History Medical history: atrial fibrillation, COPD, coronary artery disease, diabetes, GERD, GI bleed, hyperlipidemia, renal disease, thyroid disease, valvular heart disease, other Psychiatric history: anxiety, depression, panic disorder, prior suicide attempt , schizophrenia - Past Surgical History Surgical History: pacemaker/AICD, other - Social History Smoking Status: Former smoker Smokeless Tobacco Status: No Alcohol use: none Drug use: none Medications and Allergies Albuterol Sulfate [Albuterol Inhaler] 2 puff IH QID PRN 06/21/15 [History] Atorvastatin Calcium [Lipitor] 40 mg PO HS 06/21/15 [History] Metoprolol [Lopressor] 37.5 mg PO BID 06/21/15 [History] Paroxetine [Paxil] 10 mg PO QAM 06/21/15 [History] Pyridoxine HCl [Vitamin B-6] 50 mg PO QAM 06/21/15 [History] RisperiDONE [Risperdal] 1 mg PO HS 06/21/15 [History] Vitamin E (Dl,Tocopheryl Acet) [Vitamin E] 400 unit PO HS 06/21/15 [History] Fluticasone Propionate Nasal [Flonase] 50 mcg NS BID 08/20/16 [History] Tiotropium [Spiriva] 18 mcg IH DAILY 08/20/16 [History] Warfarin [Coumadin] 10 mg PO SUMOTUWETHFR 12/27/16 [History] Budesonide/Formoterol 160/4.5 [Symbicort 160/4.5] 2 puff IH BIDR 02/11/17 [ History] Docusate [Colace] 100 mg PO BID #30 capsule 02/11/17 [Rx] Docusate [Colace] 200 mg PO DAILY PRN 02/11/17 [History] Enoxaparin [Lovenox] 120 mg SQ Q12HR 02/11/17 [History] Ferrous Sulfate [Iron] 325 mg PO BID 02/11/17 [History] Furosemide [Lasix] 40 mg PO BID 02/11/17 [History] HYDROcodone/Acet 5/325 mg [Dendron 5-325 mg] 1 tab PO Q4H PRN #25 tab 02/11/17 [Rx ] Warfarin [Coumadin] 7.5 mg PO SA 02/11/17 [History] Allergies piperacillin Allergy (Verified 02/16/17 17:52) Anaphylaxis Review of Systems All systems PM: A 10-system review of systems was performed and is negative for pertinent findings except as documented above in the HPI. General Surgery Exam Initial Vital Signs Temp Pulse Resp BP Pulse Ox 97.9 F 88 20 100/64 94 02/16/17 13:09 02/16/17 13:09 02/16/17 13:09 02/16/17 13:09 02/16/17 13:09 - General physical appearance well developed, well nourished, no distress - Eyes normal ocular movement - ENT atraumatic, normocephalic - Neck trachea midline - Respiratory normal expansion, normal respiratory effort - Cardiovascular Cardiovascular exam: Present: RRR - Integumentary Integumentary general surgery: Present: other (large area of ecchymosis on the right chest wall into the axilla - margin marked) - Neurologic Present: other (Parkinson's tremor) - Psychiatric Psychiatric general surgery: Present: other (flat affect, poverty of speech) Exam Initial Vital Signs Temp Pulse Resp BP Pulse Ox 97.9 F 88 20 100/64 94 02/16/17 13:09 02/16/17 13:09 02/16/17 13:09 02/16/17 13:09 02/16/17 13:09 Results - Labs All other labs normal. - Imaging CT scan - chest: image reviewed (Extremely large right chest wall hematoma with moderate surrounding inflammation. The hematoma predominantly lies between the pectoralis major and minor muscles. Mild atelectasis within the right lung. Persistent 12 mm subpleural right upper lobe pulmonary nodule. Moderate cardiomegaly.) Consult Discharge Plan - Plan Referrals: NONE,PCP [Primary Care Provider] - <Artie Lai - Last Filed: 02/16/17 22:28> Date of Encounter: 02/16/17 Past Med Surg Social Fam HX - Family History Mother Living Status: Hx Family Cardiac Disorders: No Hx Family Respiratory Disorders: No Review of Systems All systems PM: A 10-system review of systems was performed and is negative for pertinent findings except as documented above in the HPI. General Surgery Exam Initial Vital Signs Temp Pulse Resp BP Pulse Ox 97.9 F 88 20 100/64 94 02/16/17 13:09 02/16/17 13:09 02/16/17 13:09 02/16/17 13:09 02/16/17 13:09 Exam Initial Vital Signs Temp Pulse Resp BP Pulse Ox 97.9 F 88 20 100/64 94 02/16/17 13:09 02/16/17 13:09 02/16/17 13:09 02/16/17 13:09 02/16/17 13:09 Results - Labs 02/16/17 17:45 02/16/17 17:45 Abnormal lab results WBC 20.0 K/mcL (4.3-11.1) H 02/16/17 17:45 RBC 2.04 M/mcL (4.19-5.50) L 02/16/17 17:45 Hgb 5.9 g/dL (12.9-16.9) L* 02/16/17 17:45 Hct 17.9 % (37.5-50.1) L 02/16/17 17:45 RDW 16.6 % (11.5-14.5) H 02/16/17 17:45 Neutrophils # 14.6 K/mcL (1.6-8.9) H 02/16/17 17:45 Monocytes # 2.4 K/mcL (0.0-1.3) H 02/16/17 17:45 Nucleated RBCs/100 WBC 1.4 /100 WBC (0) H 02/16/17 17:45 Anisocytosis 1+ (Not Present) A 02/16/17 17:45 PT 38.5 Seconds (9.4-12.1) H D 02/16/17 17:45 Sodium 133 mEq/L (136-145) L 02/16/17 17:45 BUN 48 mg/dL (8-26) H 02/16/17 17:45 Creatinine 3.14 mg/dL (0.72-1.25) H 02/16/17 17:45 Est GFR ( Amer) 24 (> 60) L 02/16/17 17:45 Est GFR (Non-Af Amer) 20 (> 60) L 02/16/17 17:45 Glucose 147 mg/dL (70-99) H 02/16/17 17:45 Calcium 8.2 mg/dL (8.6-10.8) L 02/16/17 17:45 All other labs normal. - Attending Attestation I examined this patient and my medical decision-making was reviewed with the Resident Physician. I agree with the documented findings, disposition and treatment plan as described except to the extent set forth below. I reviewed the above assessment and evaluation with the resident present and agree with the above assessment. Noted hematoma in the right axilla secondary to patient's previous axillary lymph node biopsy/dissection. INR 2.6 (from the hospital). Positive ecchymosis with no active drainage noted on examination. Tender to palpation. No signs of infection. CT scan imaging was personally reviewed by me as well as the report showing a large hematoma. Is difficult to determine whether another's any active bleeding since the study was done without IV contrast due to the patient's acute on chronic kidney disease. Continue to observe for now and agree with resuscitation and blood transfusion. Patient does receive both Coumadin and Lovenox and it may be beneficial consider adding FFP to help decrease the effect of the Coumadin temporarily as we await for improvement or decrease in the effect of the Lovenox. Overall the hematoma should tamponade not any source of bleeding since performing a exploration will likely not yield a source of active bleeding (this is likely a venous bleed). Will follow with you.
[2017-02-16 17:55] LABS: Basophils % 0.2 %; Eosinophils % 0.1 %; Mean Corpuscular Hemoglobin 28.9 pg (28.0-33.3); Nucleated Red Blood Cells 1.4 /100 WBC (0); Red Blood Count 2.04 M/mcL (4.19-5.50)
[2017-02-16 17:57] LABS: Hematocrit 17.9 % (37.5-50.1); Immature Granulocytes % 2.4 % (0-4); Lymphocytes # 2.4 K/mcL (0.6-4.6); Lymphocytes % 12.2 %; Mean Corpuscular Volume 87.7 fL (83.0-100.0); Mean Platelet Volume 11.5 fL (9.4-12.4); Monocytes # 2.4 K/mcL (0.0-1.3); Monocytes % 12.2 %; Neutrophils # 14.6 K/mcL (1.6-8.9); Platelet Count 147 K/mcL (140-400); Red Cell Distribution Width 16.6 % (11.5-14.5); Segmented Neutrophils % 72.9 %
[2017-02-16] MEDS ORDERED: Acetaminophen 325 MG TABLET PO PRN (18:02)
[2017-02-16 18:03] LABS: Activated Partial Thrombo Time 31.8 Seconds (26.0-36.0)
[2017-02-16 18:04] LABS: Hemoglobin 5.9 g/dL (12.9-16.9); INR 3.4; Prothrombin Time 38.5 Seconds (9.4-12.1)
[2017-02-16] MEDS ORDERED: *HR* Heparin 5,000 UNIT/ML VIAL IVP ONE (18:04)
[2017-02-16] MEDS ORDERED: *HR* Heparin 5,000 UNIT/ML VIAL IVP PRN ×3 (18:04→18:10)
[2017-02-16 18:08] LABS: Calcium 8.2 mg/dL (8.6-10.8); Potassium 4.5 mEq/L (3.5-4.5)
[2017-02-16] MEDS ORDERED: 0.9 % Sodium Chloride 250 ML ONE ×2 (18:09→22:50)
--- NOTE | 2017-02-16 18:12 | Internal Med History&Physical ---
<Rhett Whitley - Last Filed: 02/16/17 18:29> Date of Encounter: 02/16/17 Time of Encounter: 18:12 Assessment and Plan (1) Chest wall hematoma Current visit: Yes Status: Acute Chest CT reveals a 13 x 17 cm hematoma between the pectoralis major and pectoralis minor muscles in the right chest wall. Likely related to recent lymph node resection. Patient is anemic in the setting of this large hematoma and anticoagulation. Hemoglobin has stabilized slightly as it was 6.3 this morning and 5.9 on recheck. It is likely Not itself off. Surgery is seen and evaluated the patient and there is no indication for surgical intervention at this time. We will continue to monitor. Qualifiers: Encounter type: initial encounter Laterality: right Qualified Code(s): S20.211A - Contusion of right front wall of thorax, initial encounter (2) Acute blood loss anemia Current visit: No Status: Acute In the setting of large chest wall hematoma as discussed above. This is complicated by the fact that the patient is anticoagulated for mechanical mitral valve. Hemoglobin was 6.3 this morning at the [place], recheck this afternoon reveals a hemoglobin of 5.9. Patient will be transfused 4 units. No other evidence of active bleeding from any other source. No indication for acute intervention at this time as the bleeding has likely tamponaded off. We will check H&H every 6 hours. (3) History of mitral valve replacement Current visit: Yes Status: Chronic The patient is at high risk for thrombosis given his mechanical mitral valve as well as his newly diagnosed underlying lymphoma. Patient is currently anticoagulated on Coumadin with an INR of 3.4. Given the active bleed we will hold the patient's Coumadin and start a heparin drip for anticoagulation once the INR reaches 2.0. Click is heard on exam, no evidence of bowel thrombosis. (4) Fall Current visit: Yes Status: Acute While getting up and going to the bathroom in the emergency department the patient became lightheaded and fell onto his knees. I discussed that at length with the patient adamantly denies that he hit his head. No trauma noted to his head. Mental status at baseline and there is no neurological deficits noted. Given his anticoagulation status and high risk of bleed if the patient develops any change in his neurologic status patient should have a stat head CT. Qualifiers: Encounter type: initial encounter Qualified Code(s): W19.XXXA - Unspecified fall, initial encounter (5) Lymphoma Current visit: No Status: Acute Patient is status postlymph node resection on 02/11/2017. Path report reveals non-Hodgkin's lymphoma. Patient does not appear to be evaluated by oncology at this time. Patient has not been treated. Patient will need close follow-up after his acute hematoma and acute blood loss resolves. Qualifiers: Lymphoma type: non-Hodgkin Non-Hodgkin lymphoma type: unspecified type Lymphoma site: axillary Qualified Code(s): C85.94 - Non-Hodgkin lymphoma, unspecified, lymph nodes of axilla and upper limb (6) Acute kidney injury superimposed on chronic kidney disease Current visit: Yes Status: Acute Acute on chronic kidney disease stage III. Baseline GFR appears to be in the high 40s and low 50s, creatinine on presentation was 3.14 with a GFR of 20. Likely related to hypovolemia in the setting of acute blood loss. Patient received initial IV bolus in the emergency department. We will continue with gentle fluid hydration overnight. Patient at this point still has good urine output. Continue to monitor creatinine and urine output. (7) Obstructive sleep apnea Current visit: Yes Status: Acute CPAP nightly. (8) Coronary artery disease Current visit: No Status: Chronic Stable. Patient is chest pain-free. No evidence of acute ischemia even in the setting of acute blood loss.. Qualifiers: Coronary Disease-Associated Artery/Lesion type: [place] artery [place] vs. transplanted heart: [place] heart Associated angina: without angina Qualified Code(s): I25.10 - Atherosclerotic heart disease of [place] coronary artery without angina pectoris (9) Chronic atrial fibrillation Current visit: No Status: Chronic Rhythm is currently ventricular paced with heart rate within normal limits. Currently anticoagulated as above. Hold beta yesika at this time due to concerns for hypotension. Continue to monitor heart rate. (10) Chronic obstructive pulmonary disease Current visit: No Status: Chronic Stable. No evidence of acute exacerbation. Continue Symbicort, Spiriva, when necessary albuterol. Qualifiers: COPD type: unspecified COPD Qualified Code(s): J44.9 - Chronic obstructive pulmonary disease, unspecified (11) Hypertension Current visit: No Status: Chronic Blood pressure stable at this time. Patient was mildly hypotensive but blood pressure responded well to an initial bolus in the emergency department. Given the concerns for acute blood loss anemia and hypotension we will hold patient's blood pressure medications at this time. Qualifiers: Hypertension type: essential hypertension Qualified Code(s): I10 - Essential (primary) hypertension Internal Medicine - H&P: HPI Chief complaint: Right chest pain Admitted From: Emergency Dept Plans for Post Hospital Care: Home History of present illness: Mr. Pace is a 76 year old male with history of mechanical mitral valve on anticoagulation, CKD, coronary artery disease, recently diagnosed lymphoma presents with right-sided chest wall pain. Patient presents after having a recent lymph node resection by Dr. Elena on 02/11/2017. Patient reports progressive pain, swelling, and bruising over the area. Patient was hospitalized in the [place] for this issue yesterday and initially his hemoglobin on presentation there was 9.8, rechecked this morning found it to be 6.3. The patient was transferred to [facility] department and a CT scan showed a large hematoma between the pectoralis major and pectoralis minor muscle. Other than pain in the area patient has minimal complaints at this time. He denies chest pain, shortness of breath, abdominal pain, nausea, vomiting, diarrhea, hand numbness, tingling, any bleeding from anywhere that he is noticed. Past Med Surg Social Fam HX - Past Medical History Medical history: atrial fibrillation, COPD, coronary artery disease, diabetes, GERD, GI bleed, hyperlipidemia, renal disease, thyroid disease, valvular heart disease, other Psychiatric history: anxiety, depression, panic disorder, prior suicide attempt , schizophrenia - Past Surgical History Surgical History: pacemaker/AICD, other - Social History Smoking Status: Former smoker Smokeless Tobacco Status: No Alcohol use: none Drug use: none - Additional Family History Additional family history: Patient denies significant family history. Internal Medicine - H&P: Meds Albuterol Sulfate [Albuterol Inhaler] 2 puff IH QID PRN 06/21/15 [History] Atorvastatin Calcium [Lipitor] 40 mg PO HS 06/21/15 [History] Metoprolol [Lopressor] 37.5 mg PO BID 06/21/15 [History] Paroxetine [Paxil] 10 mg PO QAM 06/21/15 [History] Pyridoxine HCl [Vitamin B-6] 50 mg PO QAM 06/21/15 [History] RisperiDONE [Risperdal] 1 mg PO HS 06/21/15 [History] Vitamin E (Dl,Tocopheryl Acet) [Vitamin E] 400 unit PO HS 06/21/15 [History] Fluticasone Propionate Nasal [Flonase] 50 mcg NS BID 08/20/16 [History] Tiotropium [Spiriva] 18 mcg IH DAILY 08/20/16 [History] Warfarin [Coumadin] 10 mg PO SUMOTUWETHFR 12/27/16 [History] Budesonide/Formoterol 160/4.5 [Symbicort 160/4.5] 2 puff IH BIDR 02/11/17 [ History] Docusate [Colace] 100 mg PO BID #30 capsule 02/11/17 [Rx] Docusate [Colace] 200 mg PO DAILY PRN 02/11/17 [History] Enoxaparin [Lovenox] 120 mg SQ Q12HR 02/11/17 [History] Ferrous Sulfate [Iron] 325 mg PO BID 02/11/17 [History] Furosemide [Lasix] 40 mg PO BID 02/11/17 [History] HYDROcodone/Acet 5/325 mg [Murphy 5-325 mg] 1 tab PO Q4H PRN #25 tab 02/11/17 [Rx ] Warfarin [Coumadin] 7.5 mg PO SA 02/11/17 [History] Allergies piperacillin Allergy (Verified 02/16/17 17:52) Anaphylaxis All Systems PM: A 10-system review of systems was performed and is negative for pertinent findings except as documented above in the HPI. - Constitutional Constitutional: no chills, no fever(s) - EENT Eyes: no change in vision Nose, mouth and throat: no sinus pain, no sore throat - Cardiovascular Cardiovascular ROS IM: chest pain (Right sided near the skin), no dyspnea, no lightheadedness, no palpitations - Respiratory Respiratory: no cough, no dyspnea, no chest congestion, no excessive phlegm production, no change in phlegm color - Gastrointestinal Gastrointestinal: no abdominal pain, no nausea, no vomiting - Genitourinary Genitourinary ROS male: no hematuria - Musculoskeletal Musculoskeletal ROS IM: no numbness, no tingling - Neurological Neurological ROS: dizziness, no numbness, no weakness - Hematologic/Lymphatic Hematologic/Lymphatic: easy bleeding, easy bruising, lymphadenopathy - Constitutional Vitals: Temp Pulse Resp BP Pulse Ox 97.9 F 87 18 121/52 92 02/16/17 13:09 02/16/17 15:17 02/16/17 16:23 02/16/17 16:23 02/16/17 15:17 General appearance: Present: A&O X 3, no acute distress, answers questions appropriately - Head Head exam: Present: atraumatic, normal inspection, normocephalic - Eye Eye exam: Present: EOMI, PERRL - ENT ENT exam: Present: mucous membranes dry - Neck Neck exam general surgery: Absent: tenderness, nuchal rigidity - Respiratory Respiratory exam: Present: CTAB. Absent: rales, rhonchi, wheezes - Cardiovascular Cardiovascular exam: Present: clicks, RRR. Absent: gallop, rubs, systolic murmur Additional comments: Patient has a large area of ecchymosis on the right lateral chest wall and axilla. There is an area with Steri-Strips applied. Area is tender to touch. No active bleeding noted. - GI/Abdominal GI/Abdominal exam: Present: normal bowel sounds, soft. Absent: distended, tenderness - Extremities Exam Extremities exam: Present: warm, radial pulses palpable and symetrical. Absent : pedal edema, tenderness - Neurological Exam Neurological exam: Present: alert, CN II-XII intact, oriented X3, no focal deficits Internal Med - H&P Results - Labs CBC & Chem 7: 02/16/17 17:45 02/16/17 17:45 Labs: Short CBC 02/16/17 Range/Units 17:45 WBC 20.0 H (4.3-11.1) K/mcL Hgb 5.9 L* (12.9-16.9) g/dL Hct 17.9 L (37.5-50.1) % Plt Count 147 (140-400) K/mcL BMP 02/16/17 17:45 Sodium 133 L Potassium 4.5 Chloride 100 Carbon Dioxide 22 BUN 48 H Creatinine 3.14 H Glucose 147 H Calcium 8.2 L <Anirudh Carrizales - Last Filed: 02/16/17 19:14> Date of Encounter: 02/16/17 Assessment and Plan (1) Chest wall hematoma Current visit: Yes Status: Acute Qualifiers: Encounter type: initial encounter Laterality: right Qualified Code(s): S20.211A - Contusion of right front wall of thorax, initial encounter (2) Acute blood loss anemia Current visit: No Status: Acute (3) Obstructive sleep apnea Current visit: Yes Status: Acute (4) Acute kidney injury superimposed on chronic kidney disease Current visit: Yes Status: Acute (5) Lymphoma Current visit: No Status: Acute Qualifiers: Lymphoma type: non-Hodgkin Non-Hodgkin lymphoma type: unspecified type Lymphoma site: axillary Qualified Code(s): C85.94 - Non-Hodgkin lymphoma, unspecified, lymph nodes of axilla and upper limb (6) Hypertension Current visit: No Status: Chronic Qualifiers: Hypertension type: essential hypertension Qualified Code(s): I10 - Essential (primary) hypertension (7) Coronary artery disease Current visit: No Status: Chronic Qualifiers: Coronary Disease-Associated Artery/Lesion type: [place] artery [place] vs. transplanted heart: [place] heart Associated angina: without angina Qualified Code(s): I25.10 - Atherosclerotic heart disease of [place] coronary artery without angina pectoris (8) Schizophrenia Current visit: No Status: Chronic Qualifiers: Schizophrenia type: unspecified Qualified Code(s): F20.9 - Schizophrenia, unspecified (9) Obesity (BMI 30.0-34.9) Current visit: No Status: Chronic (10) History of mitral valve replacement Current visit: Yes Status: Chronic Internal Medicine - H&P: HPI History of present illness: Mr. Pace is a 76 year old male Past Med Surg Social Fam HX - Family History Mother Living Status: Hx Family Cardiac Disorders: No Hx Family Respiratory Disorders: No All Systems PM: A 10-system review of systems was performed and is negative for pertinent findings except as documented above in the HPI. - Constitutional Vitals: Temp Pulse Resp BP Pulse Ox 98.8 F 99 18 153/60 97 02/16/17 18:40 02/16/17 18:40 02/16/17 18:40 02/16/17 18:40 02/16/17 18:40 Internal Med - H&P Results - Labs CBC & Chem 7: 02/16/17 17:45 02/16/17 17:45 Labs: Short CBC 02/16/17 Range/Units 17:45 WBC 20.0 H (4.3-11.1) K/mcL Hgb 5.9 L* (12.9-16.9) g/dL Hct 17.9 L (37.5-50.1) % Plt Count 147 (140-400) K/mcL Neutrophils # 14.6 H (1.6-8.9) K/mcL BMP 02/16/17 17:45 Sodium 133 L Potassium 4.5 Chloride 100 Carbon Dioxide 22 BUN 48 H Creatinine 3.14 H Glucose 147 H Calcium 8.2 L - Attending Attestation I examined this patient and my medical decision-making was reviewed with the Resident Physician on 02/16/17. I agree with the documented findings, disposition and treatment plan as described except to the extent set forth below. 76 y/o male with recent R axillary biopsy transferred to ED from [place] due to swelling of R chest. Pt was evaluated and found to have large hematoma of chest wall. He has hx of mechanical mitral valve and was on Lovenox and coumadin. He recently underwent biopsy of lymph node in R axilla and is reported to have presumptive lymphoma. Currently his only complaint is some pain in his R chest wall. Exam Alert. Mild distress due to pain Mucus membranes moist Large hematoma/swelling noted L chest wall with other areas of hematoma on abdomen. Heart reg with click Lungs clear now though distant Abd soft. Tender over hematomas Pulses palpable I/P 1. Hematoma L chest wall 2. Anemia due to acute blood loss 3. Schizophrenia 4. A fib Further diagnoses and plan as above.
[2017-02-16 18:17] LABS: Anisocytosis 1+ (Not Present); Platelet Estimate Normal (Normal)
[2017-02-16] MEDS: Heparin 25,000 UNIT/500 ML D5W 25,000 UNIT/500 ML MLS IVC SCH (18:30)
[2017-02-16] MEDS ORDERED: 0.9 % Sodium Chloride 1,000 ML IVC SCH (18:45)
--- NOTE | 2017-02-16 19:03 | Procedure Note ---
<Rhett Whitley - Last Filed: 02/16/17 19:01> Date of procedure: 02/16/17 Pre-op diagnosis: Limited IV access Post-op diagnosis: same Procedure: Written consent was obtained from the patient. The right groin was surveyed using ultrasound and deemed to be a suitable target. The patient was cleaned and draped in usual sterile fashion. The skin and soft tissues were anesthetized with 1% lidocaine. Under ultrasound guidance the introducer needle was advanced into the right femoral vein. Dark red blood was returned. The guidewire was advanced through the syringe and needle without resistance. The needle was removed. A ange in the skin was made. The dilator was advanced over the guidewire and the skin and soft tissues were dilated. A 20 cm, triple- lumen catheter was advanced over the guidewire inserted into the right femoral vein easily. The guidewire was removed intact. All 3 ports were tested and shown to draw blood and flushed easily. The catheter was sutured in place. Biopatch and sterile dressing were applied. The patient tolerated the procedure well, there are no immediate complications. The attending physician, Dr. Carrizales, was present for the entire procedure. Anesthesia: local (15cc 1% lidocaine) Surgeon: Rhett Whitley Estimated blood loss (cc): 5 IV fluids (cc): 15 Pathology: none sent Condition: stable Disposition: floor <Anirudh Carrizales - Last Filed: 02/16/17 19:15> Attestation: I examined this patient and my medical decision-making was reviewed with the Resident Physician on 02/16/17. I agree with the documented findings, disposition and treatment plan as described except to the extent set forth below. I was present for the procedure and it was greater than 5 minutes.
[2017-02-16] MEDS: *HR* HYDROmorphone (PF) 1 MG/ML SYRINGE IVP PRN (20:40)
[2017-02-16] MEDS: risperiDONE 1 MG TABLET PO SCH (21:17)
[2017-02-16] MEDS: Fluticasone Propionate Nasal 50 MCG/SPRAY BOTTLE NS SCH (21:17)
[2017-02-16] MEDS: Budesonide/Formoterol 160/4.5 MDI IH SCH (22:27)
[2017-02-16 22:54] LABS: Hemoglobin 6.6 g/dL (12.9-16.9)
[2017-02-16 23:00] LABS: INR 3.8; Prothrombin Time 42.8 Seconds (9.4-12.1)
[2017-02-17] MEDS ORDERED: *HR* Promethazine 25 MG/ML VIAL IVP PRN (02:12)
[2017-02-17] MEDS: *HR* HYDROmorphone (PF) 1 MG/ML SYRINGE IVP PRN ×4 (02:24→20:41)
[2017-02-17 04:51] LABS: Basophils % 0.2 %; Eosinophils % 0.2 %; Hematocrit 22.8 % (37.5-50.1); Hemoglobin 7.5 g/dL (12.9-16.9); Immature Granulocytes % 2.8 % (0-4); Lymphocytes # 1.9 K/mcL (0.6-4.6); Lymphocytes % 11.2 %; Mean Corpuscular HGB Conc 32.9 g/dL (31.6-35.5); Mean Platelet Volume 11.6 fL (9.4-12.4); Monocytes # 2.4 K/mcL (0.0-1.3); Monocytes % 14.5 %; Nucleated Red Blood Cells 2.2 /100 WBC (0); Platelet Count 132 K/mcL (140-400); Red Blood Count 2.59 M/mcL (4.19-5.50); Red Cell Distribution Width 16.2 % (11.5-14.5); Segmented Neutrophils % 71.1 %
[2017-02-17 04:58] LABS: INR 3.6; Prothrombin Time 40.6 Seconds (9.4-12.1)
[2017-02-17 04:59] LABS: Calcium 7.8 mg/dL (8.6-10.8); Magnesium 2.2 mg/dL (1.6-2.6); Potassium 4.3 mEq/L (3.5-4.5)
[2017-02-17 05:01] LABS: Activated Partial Thrombo Time 38.1 Seconds (26.0-36.0)
[2017-02-17] MEDS: Fluticasone Propionate Nasal 50 MCG/SPRAY BOTTLE NS SCH (07:26)
[2017-02-17] MEDS: Budesonide/Formoterol 160/4.5 MDI IH SCH ×2 (08:09→20:20)
[2017-02-17] MEDS ORDERED: Pantoprazole 40 MG VIAL IVP SCH (09:00)
[2017-02-17] MEDS: Heparin 25,000 UNIT/500 ML D5W 25,000 UNIT/500 ML MLS IVC SCH (11:25)
--- NOTE | 2017-02-17 12:16 | General Surgery Progress Note ---
Date of Encounter: 02/18/17 Time of Encounter: 09:10 - Assessment and Plan (1) Chest wall hematoma Current Visit: Yes Status: Acute Noted significant hematoma at the level of the right axilla. Patient's INR is 3.6. We will continue to monitor however at this time cannot perform any type of evacuation of the hematoma due to the elevated INR level. It appears that the hematoma may have temper not in any source of bleeding in the right axilla i.e. no evidence of active bleeding. Noted increase in hemoglobin after transfusion agreed to further monitoring. Dr. Elena to return tomorrow and I will inform her of what has occurred over the past several days. Qualifiers: Encounter type: subsequent encounter Laterality: right Qualified Code(s) : S20.211D - Contusion of right front wall of thorax, subsequent encounter Subjective Patient reports: no new complaints (Pain noted at the level of the right axilla. Unchanged.) Objective Vital Signs - Last 8 Hours Temp Pulse Resp BP Pulse Ox 02/17/17 11:17 97.9 F 84 20 171/59 94 02/17/17 08:10 20 98 02/17/17 07:32 82 02/17/17 07:25 98.1 F 85 20 163/88 90 02/17/17 05:00 98.5 F 92 20 150/62 98 Intake and Output 02/16/17 02/17/17 02/17/17 23:59 07:59 15:59 Intake Total 540 / 540 400 / 400 0 / 0 Output Total 100 / 100 200 / 200 250 / 250 Balance 440 / 440 200 / 200 -250 / -250 Intake: Oral 250 / 250 120 / 120 0 / 0 Blood Product 290 / 290 280 / 280 Rbcs Leuko Poor As-1 0 / 0 280 / 280 Unit [id number] Rbcs Leuko Poor As-1 290 / 290 Unit [id number] Output: Urine 100 / 100 200 / 200 250 / 250 Urethral (Garay) 250 / 250 Other: Meal Breakfast Percent of Meal Consumed 0% Weight 115.3 kg Patient Weight 02/17/17 23:59 Weight 115.3 kg - General physical appearance well nourished, no distress - Abdomen Abdomen: Present: bowel sounds present, soft, non tender - Musculoskeletal other (Noted ecchymosis at the right axilla. No drainage from incision. Noted significant hematoma at the right axilla. Ecchymosis outland (no change from yesterday).) - Labs 02/18/17 03:40 02/18/17 03:40 Diabetes panel 02/17/17 Range/Units 04:30 Sodium 131 L (136-145) mEq/L Potassium 4.3 (3.5-4.5) mEq/L Chloride 98 (98-109) mEq/L Carbon Dioxide 25 (19-29) mEq/L BUN 53 H (8-26) mg/dL Creatinine 2.89 H (0.72-1.25) mg/dL Glucose 140 H (70-99) mg/dL Calcium 7.8 L (8.6-10.8) mg/dL Calcium panel 02/17/17 Range/Units 04:30 Calcium 7.8 L (8.6-10.8) mg/dL Pituitary panel 02/17/17 Range/Units 04:30 Sodium 131 L (136-145) mEq/L Potassium 4.3 (3.5-4.5) mEq/L Chloride 98 (98-109) mEq/L Carbon Dioxide 25 (19-29) mEq/L BUN 53 H (8-26) mg/dL Creatinine 2.89 H (0.72-1.25) mg/dL Glucose 140 H (70-99) mg/dL Calcium 7.8 L (8.6-10.8) mg/dL Adrenal panel 02/17/17 Range/Units 04:30 Sodium 131 L (136-145) mEq/L Potassium 4.3 (3.5-4.5) mEq/L Chloride 98 (98-109) mEq/L Carbon Dioxide 25 (19-29) mEq/L BUN 53 H (8-26) mg/dL Creatinine 2.89 H (0.72-1.25) mg/dL Glucose 140 H (70-99) mg/dL Calcium 7.8 L (8.6-10.8) mg/dL Consult Discharge Plan - Plan Referrals: NONE,PCP [Primary Care Provider] -
[2017-02-17] MEDS ORDERED: Furosemide 20 MG/2 ML VIAL IVP ONE (12:38)
[2017-02-17] MEDS: Furosemide 20 MG/2 ML VIAL IVP ONE ×2 (12:45→13:25)
--- NOTE | 2017-02-17 12:45 | Internal Med Progress Note ---
Date of Encounter: 02/17/17 Time of Encounter: 12:42 - Assessment and plan (1) Acute blood loss anemia Current Visit: No Status: Acute Assessment and plan: Pt received 2 U PRBC so far - Hb improved to 7.5 only since his INR still elevated at 3.8, concerning for possible continuous bleeding will give him another 1 U PRBC Check serial Hb / Hct Q6hr Also will give him 1 I FFP now cont trending on PT / INR No Vit K due to his Mechanical valve, he does need go back on anticoag quickly If his hematoma get worse , or Hb keep on dropping - would hold on Heparin too ant will give another unit FFP (2) Chest wall hematoma Current Visit: Yes Status: Acute Assessment and plan: Reviewed CT of chest Cont close monitoring Surgery on board NPO after mid night - if he need evacuation in AM no signs of infection..no need of abx now Qualifiers: Encounter type: initial encounter Laterality: right Qualified Code(s): S20.211A - Contusion of right front wall of thorax, initial encounter (3) Non-Hodgkin lymphoma Current Visit: Yes Status: Acute Assessment and plan: reviewed recent biopsy results consulted heme onc for further eval Qualifiers: Qualified Code(s): C85.90 - Non-Hodgkin lymphoma, unspecified, unspecified site (4) Acute kidney injury superimposed on chronic kidney disease Current Visit: Yes Status: Acute Assessment and plan: Improving Cr avoid nephro toxic meds cont close monitoring (5) History of mitral valve replacement Current Visit: Yes Status: Chronic Assessment and plan: Cont holding coumadin If his HB stays stable, and hematoma stays stable, will consider starting him on Heparin when INR reaches 2.0 otherwise will hold on Heparin too until his hematoma improves (6) Schizophrenia Current Visit: No Status: Chronic Assessment and plan: resumed home meds Qualifiers: Schizophrenia type: unspecified Qualified Code(s): F20.9 - Schizophrenia, unspecified (7) Hypertension Current Visit: No Status: Chronic Assessment and plan: stable with home meds on hydralazine IV PRN too Qualifiers: Hypertension type: essential hypertension Qualified Code(s): I10 - Essential (primary) hypertension (8) Obstructive sleep apnea Current Visit: Yes Status: Chronic Assessment and plan: CPAP QHS - Subjective Interval history: Mr. Pace is a 76 year old male with history of mechanical mitral valve on anticoagulation, CKD, coronary artery disease, recently diagnosed lymphoma presents with right-sided chest wall pain. Patient presents after having a recent lymph node resection by Dr. Elena on 02/11/2017. Patient reports progressive pain, swelling, and bruising over the area. Patient was hospitalized in the OR for this issue on 02/15/17 and initially his hemoglobin on presentation there was 9.8, rechecked this morning found it to be 6.3. The patient was transferred to our ER and a CT scan showed a large hematoma between the pectoralis major and pectoralis minor muscle. He was admitted here for acute anemia with large left chest wall hematoma. Pt is alert, awake and O 3 today. Pain is tolerable with medications. He received 2 U of PRBC so far. - Constitutional Vitals: Temp Pulse Resp BP Pulse Ox 97.9 F 84 20 171/59 94 02/17/17 11:17 02/17/17 11:17 02/17/17 11:17 02/17/17 11:17 02/17/17 11:17 General appearance: Present: mild distress (with pain), A&O X 3, answers questions appropriately - Head Head exam: Present: atraumatic, normal inspection - Neck Neck exam general surgery: Present: supple - Respiratory Respiratory exam: Present: decreased breath sounds, respiratory distress, wheezes. Absent: rales, rhonchi - Cardiovascular Cardiovascular exam: Present: clicks, RRR, +S1, +S2 Additional comments: a huge swelling, induration noticed extending horizontally Rt lateral chest wall region to anterior chest wall region medially and vertically axilla to diaphramatic region on Rt lateral chest region. Tenderness + Diffuse echymosis / discoloration noticed through out lateral chest wall region - GI/Abdominal GI/Abdominal exam: Present: distended, soft. Absent: rebound, rigid, tenderness - Neurological Exam Neurological exam: Present: alert, oriented X3 - Psychiatric Psychiatric exam: Present: anxious Internal Medicine: Result - Labs CBC & Chem 7: 02/17/17 04:30 02/17/17 04:30 Labs: Short CBC 02/16/17 02/17/17 Range/Units 22:35 04:30 WBC 16.9 H (4.3-11.1) K/mcL Hgb 6.6 L 7.5 L (12.9-16.9) g/dL Hct 20.0 L 22.8 L (37.5-50.1) % Plt Count 132 L (140-400) K/mcL Neutrophils # 12.0 H (1.6-8.9) K/mcL BMP 02/17/17 04:30 Sodium 131 L Potassium 4.3 Chloride 98 Carbon Dioxide 25 BUN 53 H Creatinine 2.89 H Glucose 140 H Calcium 7.8 L - ABG Interpretation ABG results: PT/INR, D-dimer PT 40.6 Seconds (9.4-12.1) H 02/17/17 04:30 Consult Discharge Plan - Plan Referrals: NONE,PCP [Primary Care Provider] -
[2017-02-17 13:12] LABS: Hematocrit 21.6 % (37.5-50.1); Hemoglobin 7.3 g/dL (12.9-16.9)
[2017-02-17] MEDS ORDERED: 0.9 % Sodium Chloride 250 ML ONE ×3 (13:16→22:58)
--- NOTE | 2017-02-17 15:00 | Oncology Inp Consult Note ---
Date of Encounter: 02/17/17 Time of Encounter: 14:58 Assessment and Plan (1) Chest wall hematoma Status: Acute Assessment and plan: -At this time it seems that there is not active bleeding. There is not evidence of compartment syndrome or ischemia affecting his right upper extremity. . I agree with plan to monitor his red cell counts and INR every 6 hours ( INR does not nee to be checked once values are lower than 2.0). He would need at least 4 units of FFP to completely reverse his INR, but after discussion with his primary team and in view that his HCT values and hematoma seem to have stabilized, we would administrate 2 unit of FFP at this time. We would consider 2 additional units if his INR remains above 2.0 or if there is evidence of acute bleeding ( either worsening hematoma or drop in HCT values). -Surgery on board to assess for surgical management of hematoma. - Once his INR drops below 2.0 start heparin drip, I would recommend an APTT goal of 1.5-2.0 the control, with the expectations to discontinue if there is evidence of active bleeding. Eventually, if his hematoma remains stable we would consider to resume coumadin for chronic anticoagulation. Lovenox probably would not be a safe alternative in view of his CKD and the long half life. Qualifiers: Encounter type: initial encounter Laterality: right Qualified Code(s): S20.211A - Contusion of right front wall of thorax, initial encounter (2) Non-Hodgkin lymphoma Status: Acute Assessment and plan: I discussed with Mr. Pace the pathology results of his recent right axillary excisional biopsy that shows results consistent with SLL. At this time there is not indication for inpatient CLL/SLL therapy. His leucocytosis and mild thrombocytopenia are more likely is reactive ( since his WBC, ALC, HCT/Hb and platelet counts were within/close to normal parameters prior to admission). - He will need to follow up with his primary oncologist Dr. Salguero shortly after discharge to discuss options of management for his SLL. Qualifiers: Qualified Code(s): C85.90 - Non-Hodgkin lymphoma, unspecified, unspecified site - Data of Consult Consult date: 02/17/17 Requesting Physician: Nir Lehman Primary Care Provider: PCP NONE - Consult Narrative Reason for consult: management of acute bleeding in patient with full anticoagulation and NHL History of present illness: Chief complain: right axillary/chest wall pain. Mr. 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 CT scan a large hematoma ( dimensions 13 x 17 x 8 cm) in the right anterior chest wall that begins in the righ axilla and extends inferiorly. Hematology/Oncology consult was requested for management of acute bleeding in the settings of full anticoagulation due to safe and vault service mechanic heart valve, along with discussion of management of NHL. History was derived from chart ( that was reviewed extensively), patient himself ( although poor historian and unable to provide detailed information) and primary hospital attending. Mr. Pace underwent an excisional biopsy of right axillary lymph node by surgeon Dr. Donna Elena on February 11, 2017. Mr. Pace resides in a local fpc and reports that following the procedure he noted right axillary pain , that progressively got worse during the next few days. Prior to the the biopsy he reports not significant pain, as well he denies any history of fever, night sweats. He has been followed by medical oncology Dr. Salguero after being referred due to the presence of adenopathy in CT scan from October 24, 2016 that was completed due to decreased appetite, nausea and right lower abdominal discomfort. He was treated for PNA with IV antibiotics in September 2016, noticing abnormal lymphadenopathy for which he underwent a PET scan and subsequently was referred to inspection machine tender at outside facility. A PET scan on 10/22/16 revealed a right sided pulmonary nodule increased FDG uptake 1.3 cm right upper lobe subpleural location SUV max of 4.6, associated with hilar lymphadenopathy in the right side measuring 2.3 cm causing narrowing of the bronchus. There was evidence of nodules in the soft tissue right of the right side of the abdomen, mesuring 2.0 -1.5 cm with SUV of 3.3 favoring granuloma, as well as stable bilateral iliac chain lymphadenopathy. There was a reported abnormal B-cell population CD5 positive, and dim CD23 and strong CD20 expression expression, with lymphoma in the differential diagnosis. Cycle D was not available. After noticing significant bruising, axillary pain he was taken to the [facility] with an initial hemoglobin reported as 9.8. He was transferred to [facility] after repeated CBC this AM showed an hemoglobin of 6.3. A CT at our facility revealed a large axillary/chest wall hematoma( as described above). He was transfused 2 PRBC yesterday with improvement of his Hb levels from 5.9 to 7.5. Repeated CBC around noon showed a mildly decreased down to 7.3 g/dl, so he is currently being transfused 1 additional PRBC and his CBC is being monitored every 6 hours. FFPs are going to be transfused due to supra therapeutic INR, with considerations to start heparin drip once his INR is less than 2 if there is not evidence of active bleeding and his red cell count remain stable. Other than the hematoma, he denies any other bleeding events ( no hematochezia, hematuria). His axillary biopsy from february 11, revealed findings consistent with NHL, specifically small lymphocytic lymphoma or possible lymph node involvement of CLL. IHC revealed a population of small lymphocytes CD5, D23 positive; There was FM7 expression; cycle D1 was negative in the vast majority of the cells. Labs revealed that prior to his current hospitalization his WBC levels and absolute lymphocytic count were within normal parameters. His Hemoglobin and platelet levels were also essentially within normal parameters prior to this admission. On December 12, 2016 he had a PET scan that revealed enlarged axillary and pelvic lymphadenopathy when compared with prior scans from aug 2016 and Jun 2015. He report persistent pain in the right axillary area, but feels that his pain became better controlled after recent PO analgesic. He denies any headache, visual changes or focal neurologic deficits. Regarding social history. He reports that is not , but has two adult children who do not live close by ( he reports that his children were already informed of the hospitalization by personal from his fpc). Past Med Surg Social Fam HX - Past Medical History Source: patient, old records reviewed (Small lymphocytic lymphoma) Medical history: atrial fibrillation, COPD, coronary artery disease, diabetes, GERD, GI bleed, hyperlipidemia, renal disease, thyroid disease, valvular heart disease, other Psychiatric history: anxiety, depression, panic disorder, prior suicide attempt , schizophrenia - Past Surgical History Surgical History: pacemaker/AICD, other - Social History Smoking Status: Former smoker Smokeless Tobacco Status: No Alcohol use: none Drug use: none Current living situation: [facility] - Family History Mother Living Status: Hx Family Cardiac Disorders: No Hx Family Respiratory Disorders: No - Additional Family History Additional family history: Reports not history of lymphoma or other hematologic malignancies in his parents or his 2 adult children. Medications and Allergies Albuterol Sulfate [Albuterol Inhaler] 2 puff IH QID PRN 06/21/15 [History] Atorvastatin Calcium [Lipitor] 40 mg PO HS 06/21/15 [History] Metoprolol [Lopressor] 37.5 mg PO BID 06/21/15 [History] Paroxetine [Paxil] 10 mg PO QAM 06/21/15 [History] Pyridoxine HCl [Vitamin B-6] 50 mg PO QAM 06/21/15 [History] RisperiDONE [Risperdal] 1 mg PO HS 06/21/15 [History] Vitamin E (Dl,Tocopheryl Acet) [Vitamin E] 400 unit PO HS 06/21/15 [History] Fluticasone Propionate Nasal [Flonase] 50 mcg NS BID 08/20/16 [History] Tiotropium [Spiriva] 18 mcg IH DAILY 08/20/16 [History] Warfarin [Coumadin] 10 mg PO SUMOTUWETHFR 12/27/16 [History] Budesonide/Formoterol 160/4.5 [Symbicort 160/4.5] 2 puff IH BIDR 02/11/17 [ History] Docusate [Colace] 100 mg PO BID #30 capsule 02/11/17 [Rx] Docusate [Colace] 200 mg PO DAILY PRN 02/11/17 [History] Enoxaparin [Lovenox] 120 mg SQ Q12HR 02/11/17 [History] Ferrous Sulfate [Iron] 325 mg PO BID 02/11/17 [History] Furosemide [Lasix] 40 mg PO BID 02/11/17 [History] HYDROcodone/Acet 5/325 mg [[place] 5-325 mg] 1 tab PO Q4H PRN #25 tab 02/11/17 [Rx ] Warfarin [Coumadin] 7.5 mg PO SA 02/11/17 [History] Allergies piperacillin Allergy (Verified 02/16/17 17:52) Anaphylaxis Constitutional: Present: fatigue. 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 Right axillary and right sided chest pain Respiratory: Absent: cough, dyspnea, hemoptysis, dyspnea on exertion, wheezing, excessive phlegm production Gastrointestinal: Absent: diarrhea, dysphagia, hematemesis Additional comments: History of rectal bleeding, but denies recent episode of bleeding. Additional comments: right chest wall hematoma with associated pain. Additional comments: significant bruising noted in the right axillary and chest area. Neurological: Absent: abnormal hearing, abnormal speech, dizziness, focal weakness Additional comments: History of schizophrenia, denies hallucinations Hematologic/Lymphatic: Present: easy bruising, lymphadenopathy Oncology - Exam - Constitutional Vitals: Temp Pulse Resp BP Pulse Ox 98.1 F 71 20 134/80 94 02/17/17 13:39 02/17/17 14:46 02/17/17 13:39 02/17/17 13:39 02/17/17 13:39 General appearance: no acute distress - Head Head exam: Present: normal inspection, normocephalic - Eye Eye exam: Present: EOMI, PERRL - ENT ENT exam: Present: normal exam - Respiratory Respiratory exam: Present: CTAB - Cardiovascular Cardiovascular exam: Present: RRR, +S1 - GI/Abdominal GI/Abdominal exam: Present: normal bowel sounds, soft. Absent: organomegaly, pulsatile mass, tenderness - Extremities Exam Extremities exam: Present: normal inspection Additional comments: Extensive area of bruising and echymosis and palpable hematoma extending from the right axillary area anterior chest wall along the mid axillary line ( approximate dimensions 12 x 18 cm). There is associated swelling and tenderness , so I could not palpate the right axillary. there is not skin rupture or celulitic changes. right arm radial pulse present with normal distal capilary refill. Left axillary area: not palpable lymphadenopathy. - Neurological Exam Neurological exam: Present: oriented X3. Absent: no focal deficits - Psychiatric Psychiatric exam: Present: normal affect. Absent: agitated, anxious Oncology - Results - Labs Labs: Short CBC 02/16/17 02/17/17 02/17/17 Range/Units 22:35 04:30 12:55 WBC 16.9 H (4.3-11.1) K/mcL Hgb 6.6 L 7.5 L 7.3 L (12.9-16.9) g/dL Hct 20.0 L 22.8 L 21.6 L (37.5-50.1) % Plt Count 132 L (140-400) K/mcL Neutrophils # 12.0 H (1.6-8.9) K/mcL BMP 02/17/17 04:30 Sodium 131 L Potassium 4.3 Chloride 98 Carbon Dioxide 25 BUN 53 H Creatinine 2.89 H Glucose 140 H Calcium 7.8 L Consult Discharge Plan - Plan Referrals: NONE,PCP [Primary Care Provider] -
[2017-02-17 17:47] LABS: Hematocrit 23.7 % (37.5-50.1); Hemoglobin 7.8 g/dL (12.9-16.9)
[2017-02-17] MEDS: risperiDONE 1 MG TABLET PO SCH (20:42)
[2017-02-18 03:53] LABS: Basophils % 0.2 %; Eosinophils # 0.1 K/mcL (0.0-0.6); Hematocrit 20.2 % (37.5-50.1); Hemoglobin 6.6 g/dL (12.9-16.9); Immature Granulocytes % 2.5 % (0-4); Lymphocytes # 1.1 K/mcL (0.6-4.6); Lymphocytes % 10.2 %; Mean Corpuscular HGB Conc 32.7 g/dL (31.6-35.5); Mean Corpuscular Hemoglobin 29.2 pg (28.0-33.3); Mean Corpuscular Volume 89.4 fL (83.0-100.0); Mean Platelet Volume 10.5 fL (9.4-12.4); Monocytes # 1.5 K/mcL (0.0-1.3); Monocytes % 14.1 %; Neutrophils # 7.8 K/mcL (1.6-8.9); Nucleated Red Blood Cells 2.2 /100 WBC (0); Platelet Count 102 K/mcL (140-400); Red Blood Count 2.26 M/mcL (4.19-5.50); Red Cell Distribution Width 16.4 % (11.5-14.5)
[2017-02-18 03:59] LABS: INR 2.4; Prothrombin Time 26.1 Seconds (9.4-12.1)
[2017-02-18 04:08] LABS: Albumin 3.1 g/dL (3.5-5.0); Albumin/Globulin Ratio 1.2 (1.1-2.2); Bilirubin,Total 1.5 mg/dL (0.2-1.2); Calcium 7.7 mg/dL (8.6-10.8); Globulin 2.6 g/dL (2.4-3.5); Magnesium 2.4 mg/dL (1.6-2.6); Potassium 3.4 mEq/L (3.5-4.5); Total Protein 5.7 g/dL (6.0-8.3)
--- NOTE | 2017-02-18 07:25 | General Surgery Progress Note ---
<Herberth Toure - Last Filed: 02/19/17 10:27> Date of Encounter: 02/18/17 Time of Encounter: 06:45 - Assessment and Plan (1) Chest wall hematoma Current Visit: Yes Status: Acute Hematoma stable in size Holding anticoagulation Follow PT/INR and PTT - last INR 2.4, down from 3.6 Transfuse as necessary for severe anemia Due to severe anemia despite transfusion, we are going to evacuate the hematoma in the OR this evening and evaluate for active bleeding Qualifiers: Encounter type: subsequent encounter Laterality: right Qualified Code(s) : S20.211D - Contusion of right front wall of thorax, subsequent encounter Subjective Patient reports: no new complaints, feels better, pain is less, afebrile Narrative: Patient states that he is having less pain. He denies weakness, lightheadedness , and fatigue. Objective Vital Signs - Last 8 Hours Temp Pulse Resp BP Pulse Ox 02/18/17 07:08 98.4 F 70 16 132/54 93 02/18/17 06:42 98.7 F 71 12 137/55 93 02/18/17 06:27 98.0 F 73 14 135/59 95 02/18/17 04:05 91 02/18/17 03:42 99.1 F 77 14 118/56 95 02/18/17 02:25 98.2 F 70 10 126/56 91 02/17/17 23:32 73 02/17/17 23:26 98.2 F 16 102/47 94 Intake and Output 02/17/17 02/17/17 02/18/17 15:59 23:59 07:59 Intake Total 0 / 0 919 / 919 300 / 300 Output Total 250 / 250 550 / 550 625 / 625 Balance -250 / -250 369 / 369 -325 / -325 Intake: Oral 0 / 0 360 / 360 Blood Product 0 / 0 559 / 559 300 / 300 Plasma Unit 265 / 265 [id number] Plasma Unit 0 / 0 300 / 300 [id number] Rbcs Leuko Poor As-1 0 / 0 294 / 294 Unit [id number] Rbcs Leuko Poor As-1 0 / 0 Unit [id number] Output: Urine 250 / 250 550 / 550 Urethral (Garay) 250 / 250 550 / 550 Catheter 625 / 625 Other: Meal Breakfast Dinner Percent of Meal Consumed 0% 100% Weight 117.1 kg Patient Weight 02/18/17 23:59 Weight 117.1 kg - General physical appearance well developed, well nourished, no distress - Eyes normal ocular movement - ENT atraumatic, normocephalic - Neck Neck exam: trachea midline - Respiratory normal expansion, normal respiratory effort - Cardiovascular Cardiovascular exam: Present: RRR - Abdomen Abdomen: Present: bowel sounds present, soft, non tender - Integumentary other (Extensive ecchymosis in right axilla and right anterior chest wall) - Psychiatric speech is normal, other (flat affect) - Labs 02/19/17 03:30 02/19/17 03:30 Diabetes panel 02/18/17 Range/Units 03:40 Sodium 133 L (136-145) mEq/L Potassium 3.4 L (3.5-4.5) mEq/L Chloride 98 (98-109) mEq/L Carbon Dioxide 26 (19-29) mEq/L BUN 49 H (8-26) mg/dL Creatinine 2.21 H (0.72-1.25) mg/dL Glucose 134 H (70-99) mg/dL Calcium 7.7 L (8.6-10.8) mg/dL AST 68 H (5-34) Units/L ALT 26 (0-55) Units/L Alkaline Phosphatase 97 (38-126) Units/L Albumin 3.1 L (3.5-5.0) g/dL Calcium panel 02/18/17 Range/Units 03:40 Calcium 7.7 L (8.6-10.8) mg/dL Albumin 3.1 L (3.5-5.0) g/dL Pituitary panel 02/18/17 Range/Units 03:40 Sodium 133 L (136-145) mEq/L Potassium 3.4 L (3.5-4.5) mEq/L Chloride 98 (98-109) mEq/L Carbon Dioxide 26 (19-29) mEq/L BUN 49 H (8-26) mg/dL Creatinine 2.21 H (0.72-1.25) mg/dL Glucose 134 H (70-99) mg/dL Calcium 7.7 L (8.6-10.8) mg/dL Adrenal panel 02/18/17 Range/Units 03:40 Sodium 133 L (136-145) mEq/L Potassium 3.4 L (3.5-4.5) mEq/L Chloride 98 (98-109) mEq/L Carbon Dioxide 26 (19-29) mEq/L BUN 49 H (8-26) mg/dL Creatinine 2.21 H (0.72-1.25) mg/dL Glucose 134 H (70-99) mg/dL Calcium 7.7 L (8.6-10.8) mg/dL Total Bilirubin 1.5 H (0.2-1.2) mg/dL AST 68 H (5-34) Units/L ALT 26 (0-55) Units/L Alkaline Phosphatase 97 (38-126) Units/L Albumin 3.1 L (3.5-5.0) g/dL Consult Discharge Plan - Plan Referrals: NONE,PCP [Primary Care Provider] - [place],PCP [Non-Partnered Physician] - 02/26/17 10:00 am (THIS APPOINTMENT IS WITH THE [facility] ) <Donna Elena - Last Filed: 02/19/17 11:52> Date of Encounter: 02/18/17 Time of Encounter: 17:35 - Assessment and Plan (1) Elevated risk of hemorrhage due to anticoagulant therapy Current Visit: Yes Status: Acute patient has had bleeding into chest/abdomen/back/axilla due to anticoagulation for MVR after right axilla node excision patient will need hematoma evacuated in OR, risks and benefits discussed and patient wishes to proceed patient has had inr reversed with ffp and vitamin K monitor H/H - been transfused 4 units prbc prn pain control (2) Anticoagulated Current Visit: Yes Status: Chronic patient resumed anticoagulation after surgery for MVR, patient started having symptoms of pain and swelling and nausea at end of last week but did not relay to anyone per sister stopped anticoagulation and reverse inr for OR evacuation of hematoma and evaluation for bleeding, Hb went from 12.9 to 5.9, 4 units prbc transfused (3) Chest wall hematoma Current Visit: Yes Status: Acute patient continuing to bleed until inr reversed Qualifiers: Encounter type: subsequent encounter Laterality: right Qualified Code(s) : S20.211D - Contusion of right front wall of thorax, subsequent encounter (4) Lymphoma Current Visit: No Status: Acute new diagnosis of lymphoma, pt was supposed to see oncology in office today, will have pt follow up as outpatient Qualifiers: Lymphoma type: non-Hodgkin Non-Hodgkin lymphoma type: unspecified type Lymphoma site: axillary Qualified Code(s): C85.94 - Non-Hodgkin lymphoma, unspecified, lymph nodes of axilla and upper limb Subjective Narrative: complaing of pain in right chest and axilla. per pts sister he had symptoms for days and never told anyone. Objective Vital Signs - Last 8 Hours Temp Pulse Resp BP Pulse Ox 02/19/17 11:02 98.3 F 76 16 104/59 92 02/19/17 10:47 98.3 F 84 16 117/59 94 02/19/17 08:20 78 02/19/17 08:16 16 95 02/19/17 07:32 98.3 F 73 18 109/69 94 02/19/17 04:05 71 02/19/17 04:00 97.2 F L 75 18 121/65 94 Intake and Output 02/18/17 02/19/17 02/19/17 23:59 07:59 15:59 Intake Total 711 / 711 860 / 860 Output Total 2099 / 2099 Balance 706 / 706 -2100 / -2100 860 / 860 Intake: Oral 711 / 711 860 / 860 Blood Product 0 / 0 Rbcs Leuko Poor As-1 0 / 0 Unit [id number] Output: Urine 1050 / 1050 Urethral (Garay) 1050 / 1050 Estimated Blood Loss Catheter 1050 / 1050 Other: Meal Breakfast Percent of Meal Consumed 30% Weight 121.3 kg Blood Glucose* 173 136 138 Patient Weight 02/19/17 23:59 Weight 121.3 kg - General physical appearance well nourished, no distress - Eyes normal ocular movement - ENT atraumatic, normocephalic - Neck Neck exam: trachea midline - Respiratory normal expansion - Cardiovascular Cardiovascular exam: Present: RRR - Incision Incision: Present: intact (but ecchymosis of right arm, right lateral chest/back , right lateral abdomen and axilla and right chest taut with hematoma) - Integumentary no rash - Neurologic CN 2-12 grossly intact - Musculoskeletal normal posture - Psychiatric other (some confusion) - Labs 02/19/17 03:30 02/19/17 03:30 Diabetes panel 02/19/17 Range/Units 03:30 Sodium 133 L (136-145) mEq/L Potassium 4.2 (3.5-4.5) mEq/L Chloride 100 (98-109) mEq/L Carbon Dioxide 27 (19-29) mEq/L BUN 39 H D (8-26) mg/dL Creatinine 1.85 H (0.72-1.25) mg/dL Glucose 163 H (70-99) mg/dL Calcium 7.9 L (8.6-10.8) mg/dL Calcium panel 02/19/17 Range/Units 03:30 Calcium 7.9 L (8.6-10.8) mg/dL Pituitary panel 02/19/17 Range/Units 03:30 Sodium 133 L (136-145) mEq/L Potassium 4.2 (3.5-4.5) mEq/L Chloride 100 (98-109) mEq/L Carbon Dioxide 27 (19-29) mEq/L BUN 39 H D (8-26) mg/dL Creatinine 1.85 H (0.72-1.25) mg/dL Glucose 163 H (70-99) mg/dL Calcium 7.9 L (8.6-10.8) mg/dL Adrenal panel 02/19/17 Range/Units 03:30 Sodium 133 L (136-145) mEq/L Potassium 4.2 (3.5-4.5) mEq/L Chloride 100 (98-109) mEq/L Carbon Dioxide 27 (19-29) mEq/L BUN 39 H D (8-26) mg/dL Creatinine 1.85 H (0.72-1.25) mg/dL Glucose 163 H (70-99) mg/dL Calcium 7.9 L (8.6-10.8) mg/dL - Attending Attestation I examined this patient and my medical decision-making was reviewed with the Resident Physician. I agree with the documented findings, disposition and treatment plan as described except to the extent set forth below.
[2017-02-18] MEDS: Budesonide/Formoterol 160/4.5 MDI IH SCH ×2 (07:59→22:59)
[2017-02-18] MEDS: Fluticasone Propionate Nasal 50 MCG/SPRAY BOTTLE NS SCH ×3 (08:48→20:18)
--- NOTE | 2017-02-18 09:46 | Internal Med Progress Note ---
Date of Encounter: 02/18/17 Time of Encounter: 09:44 - Assessment and plan (1) Acute blood loss anemia Current Visit: No Status: Acute Assessment and plan: He recieved 6 U PRBC and 2 U FFP y/d - his Hb 6.6 and INR 2.4 Ordered 2 more U FFP now, Vit K x 1 dose and 2 more U PRBC by surgery Will hold on heparin cont close monitoring of Hb / Hct Q 6hr possible OR later today for hematoma evacuation cont NPO surgery on borad (2) Chest wall hematoma Current Visit: Yes Status: Acute Assessment and plan: cont close monitoring of Hb / Hct Q 6hr possible OR later today for hematoma evacuation cont NPO surgery on borad no signs of infection..no need of abx now Qualifiers: Encounter type: subsequent encounter Laterality: right Qualified Code(s) : S20.211D - Contusion of right front wall of thorax, subsequent encounter (3) Non-Hodgkin lymphoma Current Visit: Yes Status: Acute Assessment and plan: reviewed recent biopsy results Heme Onc on board Qualifiers: Qualified Code(s): C85.90 - Non-Hodgkin lymphoma, unspecified, unspecified site (4) Acute kidney injury superimposed on chronic kidney disease Current Visit: Yes Status: Acute Assessment and plan: Improving Cr he might have CKD-3 with baseline Cr @ 1.48 avoid nephro toxic meds cont close monitoring (5) History of mitral valve replacement Current Visit: Yes Status: Chronic Assessment and plan: Cont holding coumadin will hold on all anticoag until surgery clears him to go back on due to his continuous bleeding into hematoma (6) Schizophrenia Current Visit: No Status: Chronic Assessment and plan: resumed home meds Qualifiers: Schizophrenia type: unspecified Qualified Code(s): F20.9 - Schizophrenia, unspecified (7) Hypertension Current Visit: No Status: Chronic Assessment and plan: stable with home meds on hydralazine IV PRN too Qualifiers: Hypertension type: essential hypertension Qualified Code(s): I10 - Essential (primary) hypertension (8) Obstructive sleep apnea Current Visit: Yes Status: Chronic Assessment and plan: CPAP QHS - Subjective Interval history: Mr. Pace is a 76 year old male with history of mechanical mitral valve on anticoagulation, CKD, coronary artery disease, recently diagnosed lymphoma presents with right-sided chest wall pain. Patient presents after having a recent lymph node resection by Dr. Elena on 02/11/2017. Patient reports progressive pain, swelling, and bruising over the area. Patient was hospitalized in the [place] for this issue on 02/15/17 and initially his hemoglobin on presentation there was 9.8, rechecked this morning found it to be 6.3. The patient was transferred to our ER and a CT scan showed a large hematoma between the pectoralis major and pectoralis minor muscle. He was admitted here for acute anemia with large left chest wall hematoma. Pt is alert, awake and O 3 today. Pain is tolerable with medications. His Hb kept on dropping, this morning @ 6.6. He received total 6 U PRBC and 2 U FFP y/d. - Constitutional Vitals: Temp Pulse Resp BP Pulse Ox 98.4 F 70 16 132/54 94 02/18/17 07:08 02/18/17 08:10 02/18/17 08:00 02/18/17 07:08 02/18/17 08:00 General appearance: Present: mild distress (with pain), A&O X 3, answers questions appropriately - Head Head exam: Present: atraumatic, normal inspection - Neck Neck exam general surgery: Present: supple - Respiratory Respiratory exam: Present: decreased breath sounds, wheezes. Absent: rales, respiratory distress, rhonchi - Cardiovascular Cardiovascular exam: Present: RRR, +S1, +S2. Absent: systolic murmur - Extremities Exam Additional comments: a huge swelling, induration noticed extending horizontally Rt lateral chest wall region to anterior chest wall region medially and vertically axilla to diaphramatic region on Rt lateral chest region. Tenderness + Diffuse echymosis / discoloration noticed through out lateral chest wall region - Neurological Exam Neurological exam: Present: alert, oriented X3 - Psychiatric Psychiatric exam: Present: normal affect, normal mood Internal Medicine: Result - Labs CBC & Chem 7: 02/18/17 03:40 02/18/17 03:40 Labs: Short CBC 02/17/17 02/17/17 02/18/17 Range/Units 12:55 17:40 03:40 WBC 10.8 (4.3-11.1) K/mcL Hgb 7.3 L 7.8 L 6.6 L (12.9-16.9) g/dL Hct 21.6 L 23.7 L 20.2 L (37.5-50.1) % Plt Count 102 L (140-400) K/mcL Neutrophils # 7.8 (1.6-8.9) K/mcL BMP 02/18/17 03:40 Sodium 133 L Potassium 3.4 L Chloride 98 Carbon Dioxide 26 BUN 49 H Creatinine 2.21 H Glucose 134 H Calcium 7.7 L Liver Function 02/18/17 Range/Units 03:40 Total Bilirubin 1.5 H (0.2-1.2) mg/dL AST 68 H (5-34) Units/L ALT 26 (0-55) Units/L Alkaline Phosphatase 97 (38-126) Units/L Albumin 3.1 L (3.5-5.0) g/dL - ABG Interpretation ABG results: PT/INR, D-dimer PT 26.1 Seconds (9.4-12.1) H 02/18/17 03:40 Consult Discharge Plan - Plan Referrals: NONE,PCP [Primary Care Provider] -
[2017-02-18] MEDS: *HR* HYDROmorphone (PF) 1 MG/ML SYRINGE IVP PRN ×3 (10:47→19:01)
[2017-02-18 14:57] LABS: Hematocrit 20.8 % (37.5-50.1); Hemoglobin 6.8 g/dL (12.9-16.9)
[2017-02-18 15:02] LABS: INR 1.4; Prothrombin Time 14.9 Seconds (9.4-12.1)
--- NOTE | 2017-02-18 15:10 | Electrocardiograph Report ---
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
--- NOTE | 2017-02-18 15:34 | Anesthesia Evaluation PreOp ---
Date of Encounter: 02/18/17 Time of Encounter: 15:30 - Past History Planned Operation: Evacuation R Axillary Hematoma Cardiac History: HTN (maintained on Lopressor,, Lasix), Hyperlipidemia ( maintained on Lipitor), Arrhythmia (AFib), Cardiac Surgery (Prosthetic Mitral Valve 1970s anticoagulated on Coumadin.), Pacemaker/ICD (Pacer only, battery replacement 2013 - interrogated 01/18/2017), Other (CAD. Echo 12/26/2016 - Paced rhythm, Indeterminate LV disastolic Fx, Global Hypokinesis. Moderately dilated LV. Severely reduced lV systolic dysfx. Mean gradient not significant, no significant regurgitation.) Pulmonary History: Former smoker, COPD (maintained on Spiriva, Symbicort), YOVANNY Dx (CPAP use) FUDGER History: Other (Chronic Schizophrenia, Anxiety/Depression, Panic Disorder, Hx Suicide attempt. Parkinson's Tremor. Maintained on Paxil, Risperdal) Other Medical History: Renal (CKD), GERD (Hx of GIB), Other (Axillary LN Bx on [Spahn] - possibly lymphoma, now with ecchymosis/hematoma & admitted for acute blood loss anemia.) Anesthesia History: No Prior Anesthetic Complications (MV replacement), Past Anesthesia Alcohol Use: none Drug use: none Medications and Allergies Albuterol Sulfate [Albuterol Inhaler] 2 puff IH QID PRN 06/21/15 [History] Atorvastatin Calcium [Lipitor] 40 mg PO HS 06/21/15 [History] Metoprolol [Lopressor] 37.5 mg PO BID 06/21/15 [History] Paroxetine [Paxil] 10 mg PO QAM 06/21/15 [History] Pyridoxine HCl [Vitamin B-6] 50 mg PO QAM 06/21/15 [History] RisperiDONE [Risperdal] 1 mg PO HS 06/21/15 [History] Vitamin E (Dl,Tocopheryl Acet) [Vitamin E] 400 unit PO HS 06/21/15 [History] Fluticasone Propionate Nasal [Flonase] 50 mcg NS BID 08/20/16 [History] Tiotropium [Spiriva] 18 mcg IH DAILY 08/20/16 [History] Warfarin [Coumadin] 10 mg PO SUMOTUWETHFR 12/27/16 [History] Budesonide/Formoterol 160/4.5 [Symbicort 160/4.5] 2 puff IH BIDR 02/11/17 [ History] Docusate [Colace] 100 mg PO BID #30 capsule 02/11/17 [Rx] Docusate [Colace] 200 mg PO DAILY PRN 02/11/17 [History] Enoxaparin [Lovenox] 120 mg SQ Q12HR 02/11/17 [History] Ferrous Sulfate [Iron] 325 mg PO BID 02/11/17 [History] Furosemide [Lasix] 40 mg PO BID 02/11/17 [History] HYDROcodone/Acet 5/325 mg [[place] 5-325 mg] 1 tab PO Q4H PRN #25 tab 02/11/17 [Rx ] Warfarin [Coumadin] 7.5 mg PO SA 02/11/17 [History] Allergies piperacillin Allergy (Verified 02/16/17 17:52) Anaphylaxis - Meds/Allergy Pre-op Review Medications Reviewed: Yes Allergies Reviewed: Yes Beta Blockers on Current Med List: No Anesthesia Results - Labs 02/18/17 14:44 02/18/17 03:40 Laboratory Tests 02/17/17 02/18/17 04:30 03:40 PT INR APTT 38.1 H Est GFR (Non-Af Amer) 29 L Calcium 7.7 L Phosphorus Magnesium 2.4 02/18/17 14:44 PT 14.9 H INR 1.4 APTT Est GFR (Non-Af Amer) Calcium Phosphorus Magnesium Laboratory Results Short CBC 02/18/17 02/18/17 02/17/17 Range/Units 14:44 03:40 17:40 WBC 10.8 (4.3-11.1) K/mcL Hgb 6.8 L 6.6 L 7.8 L (12.9-16.9) g/dL Hct 20.8 L 20.2 L 23.7 L (37.5-50.1) % Plt Count 102 L (140-400) K/mcL Neutrophils # 7.8 (1.6-8.9) K/mcL BMP 02/18/17 Range/Units 03:40 Sodium 133 L (136-145) mEq/L Potassium 3.4 L (3.5-4.5) mEq/L Chloride 98 (98-109) mEq/L Carbon Dioxide 26 (19-29) mEq/L BUN 49 H (8-26) mg/dL Creatinine 2.21 H (0.72-1.25) mg/dL Glucose 134 H (70-99) mg/dL Calcium 7.7 L (8.6-10.8) mg/dL Liver Function 02/18/17 Range/Units 03:40 Total Bilirubin 1.5 H (0.2-1.2) mg/dL AST 68 H (5-34) Units/L ALT 26 (0-55) Units/L Alkaline Phosphatase 97 (38-126) Units/L Albumin 3.1 L (3.5-5.0) g/dL Impressions Chest CT 02/16/17 13:07 IMPRESSION: Extremely large right chest wall hematoma with moderate surrounding inflammation. The hematoma predominantly lies between the pectoralis major and minor muscles. Mild atelectasis within the right lung. Persistent 12 mm subpleural right upper lobe pulmonary nodule. Moderate cardiomegaly. D/ / Estevan Sequeira MD / Estevan Sequeira MD Interpreting Provider: Estevan Sequeria MD Anesthesia Exam Vital Signs Temp Pulse Resp BP Pulse Ox 02/18/17 15:38 99.9 F H 75 16 147/60 93 02/18/17 14:24 98.2 F 78 20 147/60 94 02/18/17 13:58 98.5 F 77 18 149/63 93 02/18/17 13:43 98.6 F 70 18 152/60 02/18/17 13:22 98.5 F 76 17 137/59 02/18/17 11:54 75 92 02/18/17 10:55 98.9 F 75 18 131/57 92 02/18/17 10:35 98.8 F 84 18 139/53 88 02/18/17 10:03 98.6 F 75 18 131/54 95 02/18/17 08:10 70 02/18/17 08:00 16 94 02/18/17 07:08 98.4 F 70 16 132/54 93 02/18/17 06:42 98.7 F 71 12 137/55 93 02/18/17 06:27 98.0 F 73 14 135/59 95 02/18/17 04:05 91 02/18/17 03:42 99.1 F 77 14 118/56 95 02/18/17 02:25 98.2 F 70 10 126/56 91 02/17/17 23:32 73 02/17/17 23:26 98.2 F 16 102/47 94 02/17/17 23:11 98.4 F 75 16 122/51 93 02/17/17 23:06 98.4 F 84 18 129/64 93 02/17/17 21:24 72 02/17/17 20:20 18 95 02/17/17 18:53 98.4 F 93 16 155/75 93 02/17/17 16:30 98.5 F 83 16 159/72 95 02/17/17 16:15 98.6 F 85 20 164/76 95 02/17/17 16:08 98.6 F 80 20 164/76 95 02/17/17 16:03 98.6 F 83 13 164/76 95 Intake and Output 02/17/17 02/18/17 02/18/17 23:59 07:59 15:59 Intake Total 919 / 919 300 / 300 1329.25 / 1329.25 Output Total 550 / 550 625 / 625 400 / 400 Balance 369 / 369 -325 / -325 929.25 / 929.25 Intake: IV Fluids 50.25 / 50.25 AquaMephyton 2.5 MG In 0. 50.25 / 50.25 9 % Sodium Chloride 50 ML @ 100 mls/hr IVPB ONCE ONE Rx#:[id number] Oral 360 / 360 Blood Product 559 / 559 300 / 300 1279 / 1279 Plasma Unit 291 / 291 [id number] Plasma Unit 340 / 340 [id number] Plasma Unit 265 / 265 [id number] Plasma Unit 0 / 0 300 / 300 [id number] Rbcs Leuko Poor As-1 294 / 294 Unit [id number] Rbcs Leuko Poor As-1 0 / 0 648 / 648 Unit [id number] Output: Urine 550 / 550 Urethral (Garay) 550 / 550 Catheter 625 / 625 400 / 400 Other: Meal Dinner npo Percent of Meal Consumed 100% Weight 117.1 kg Blood Glucose* 122 Patient Weight 08/07/17 23:59 Weight 117.1 kg Height: 6 Weight: 258# BMI = 35 NPO (# of Hours): MNoc - HEENT Pupil (Motor): Pupils equal, EOMI Mallampati: III Teeth: Edentulous Oral Opening: Greater than 3 - FUDGER LOC: Oriented FUDGER Motor: Normal RUE, Normal LUE, Normal RLE, Normal LLE, Normal Face FUDGER Sensory: Normal: RUE, LUE, RLE, LLE, Face - Cardiac Rhythm: Regular Murmur: None - Pulmonary Breath Sounds: bilateral Clear Respiratory Effort: Symmetrical Anesthesia Assess/Plan ASA Score: 3 (schizophrenia, CKD, HTN, Chol, AFib, MVR, Pacer) Modified [place] Scale for Level of Consciousness: Cooperative, oriented, and tranquil Anesthetic Plan: General Monitoring Plan: Standard Monitors Recovery Plan: PACU Anes Supervising Prov Stmt: Pt seen/evaluated, R&B discussed, questions answered and consent obtained. Reginaldo Meraz MD
[2017-02-18] MEDS ORDERED: *HR* Propofol 200 MG/20 ML VIAL IVP ONE (16:45)
[2017-02-18] MEDS ORDERED: *HR* FentaNYL (PF) 100 MCG/2 ML VIAL ONE (16:45)
[2017-02-18] MEDS ORDERED: Lidocaine -MPF 2% 2 ML VIAL ONE (16:45)
[2017-02-18] MEDS ORDERED: *HR* Succinylcholine 200 MG/10 ML VIAL IVP ONE (16:45)
[2017-02-18] MEDS ORDERED: Lidocaine -MPF 4% 5 ML AMPUL ONE (16:48)
[2017-02-18] MEDS ORDERED: Bupivacaine/EPI 1:200k 0.5%PF 30 ML VIAL ONE (16:55)
[2017-02-18] MEDS ORDERED: Acetaminophen IV 1,000 MG/100 ML INFUS..BTL ONE (17:02)
[2017-02-18] MEDS ORDERED: Bupivacaine/EPI 1:200k 0.25%PF 30 ML VIAL ONE (17:35)
--- NOTE | 2017-02-18 18:43 | Operative Note ---
Date of procedure: 02/18/17 Pre-op diagnosis: right axilla, chest wall hematoma Post-op diagnosis: same Procedure: Evacuation right axilla and chest wall hematoma/blood Complications: none immediate Anesthesia: FIORELLA Surgeon: Donna Elena Meat Packer: Allegra Obando Estimated blood loss (cc): 5 Specimen: 1000cc hematoma/blood Condition: stable Disposition: PACU Procedure in Detail: Patient was brought to the operating suite and placed supine on the operating table. Sign in was performed and everyone was in agreement. Anesthesia was induced and patient was endotracheally intubated by anesthesia without incident. The right upper arm axilla and chest were prepped and draped in the usual sterile fashion. Timeout was performed again everyone was in agreement. The healing incision from his surgery one week ago was opened with a 15 blade. Old serosanguineous fluid, hematoma, as well as bright red blood resulted from the wound. The hematoma tracked underneath the right breast along the pectoralis major and this was digitally broken up and evacuated with the suction as well as pressure. There was old hematoma that was gelatinous and clear. All the the patient has hematoma along the right back and right lateral abdominal wall there is no obvious hematoma that tracks to this area which could be evacuated. The wound was copiously irrigated with sterile saline. There was no obvious bleeding from the wound. The axilla and the posterior breast space was packed with a saline moistened Kerlix. 4 x 4 gauze, EBD pad and Medipore tape were applied as a dressing. The patient tolerated the procedure well. Patient was awoken in the operating suite. All lap and ensuring counts were correct at the end of the case. He was taken to PACU in stable condition.
--- NOTE | 2017-02-18 19:14 | Anesthesia Evaluation Post Op ---
Date of Encounter: 02/18/17 Time of Encounter: 19:10 - Vital Signs Vital Signs: Vital Signs/O2 Sat/Glucose, Most Current Temp Pulse Resp BP Pulse Ox 02/18/17 19:08 97.9 F 71 12 138/67 93 02/18/17 18:58 70 12 141/75 93 02/18/17 18:48 70 12 134/71 94 02/18/17 18:38 98.5 F 84 12 134/75 92 02/18/17 15:38 99.9 F H 75 16 147/60 93 02/18/17 15:22 71 18 94 - Lungs Lungs: Clear Ascult./Percussion - Airway Airway: Non-obstructed - Cardiovascular Regular Rate - Mental Status Mental Status: Alert & Oriented, Answers Appropriately - Pain Pain Scale: 0 - Nausea Vomiting Nausea Vomiting: Not Present - Hydration Hydration: Ice chips - Discharge PostOp Status: Transfer Patient to floor
[2017-02-18] MEDS ORDERED: Naloxone 0.4 MG/ML INJ IVP PRN (19:40)
[2017-02-18] MEDS ORDERED: Acetaminophen 325 MG TABLET PO PRN (19:40)
[2017-02-18] MEDS ORDERED: *HR* Promethazine 25 MG/ML VIAL IVP PRN (19:40)
[2017-02-18] MEDS: risperiDONE 1 MG TABLET PO SCH (20:17)
[2017-02-18 21:33] LABS: Hematocrit 21.4 % (37.5-50.1)
[2017-02-19 03:44] LABS: Basophils % 0.1 %; Eosinophils % 0.1 %; Hemoglobin 6.7 g/dL (12.9-16.9); Lymphocytes # 0.4 K/mcL (0.6-4.6); Lymphocytes % 5.1 %; Mean Corpuscular HGB Conc 33.5 g/dL (31.6-35.5); Mean Corpuscular Hemoglobin 30.3 pg (28.0-33.3); Mean Corpuscular Volume 90.5 fL (83.0-100.0); Mean Platelet Volume 10.7 fL (9.4-12.4); Monocytes # 0.8 K/mcL (0.0-1.3); Monocytes % 9.7 %; Neutrophils # 7.1 K/mcL (1.6-8.9); Nucleated Red Blood Cells 1.4 /100 WBC (0); Platelet Count 102 K/mcL (140-400); Red Blood Count 2.21 M/mcL (4.19-5.50); Red Cell Distribution Width 16.2 % (11.5-14.5)
[2017-02-19 03:49] LABS: INR 1.1; Prothrombin Time 12.1 Seconds (9.4-12.1)
[2017-02-19 03:59] LABS: Calcium 7.9 mg/dL (8.6-10.8); Potassium 4.2 mEq/L (3.5-4.5)
[2017-02-19] MEDS: Fluticasone Propionate Nasal 50 MCG/SPRAY BOTTLE NS SCH ×2 (08:15→20:30)
[2017-02-19] MEDS: Budesonide/Formoterol 160/4.5 MDI IH SCH ×2 (08:15→21:54)
[2017-02-19] MEDS: *HR* HYDROmorphone (PF) 1 MG/ML SYRINGE IVP PRN (10:00)
--- NOTE | 2017-02-19 10:35 | General Surgery Progress Note ---
<Clara Strauss - Last Filed: 02/19/17 11:53> Date of Encounter: 02/19/17 Time of Encounter: 10:00 - Assessment and Plan (1) Chest wall hematoma Current Visit: Yes Status: Acute POD #1 Evacuation right axilla and chest wall hematoma/blood (02/18/2017) aprox 1000 ml Continue supportive care and discomfort management Daily wound care: pack with saline moistened Kerlix and cover with dry dressing per surgical team. May reinforce/change outer dressing PRN. Wrap AYANNA bandage around thorax for light pressure Monitor H&H and transfuse as indicated Ok to start heparin: No bolus Qualifiers: Encounter type: subsequent encounter Laterality: right Qualified Code(s) : S20.211D - Contusion of right front wall of thorax, subsequent encounter (2) Anemia Current Visit: Yes Status: Acute Management per medicine: Monitor H&H-currently 6.7; transfuse as indicated VSS Will continue to follow Qualifiers: Anemia type: unspecified type Qualified Code(s): D64.9 - Anemia, unspecified (3) History of mitral valve replacement Current Visit: Yes Status: Chronic OK to start heparin without bolus from a surgical perspective. Management per Medicine. Discussed with Dr. Thacker (4) Schizophrenia Current Visit: No Status: Chronic Flat affect. Management per medicine. Qualifiers: Schizophrenia type: unspecified Qualified Code(s): F20.9 - Schizophrenia, unspecified Subjective Patient reports: no new complaints, still having pain, tolerating liquids well, voiding w/o difficulty Narrative: Mr Pace denies SOB, CP, LE pain, or bleeding. He states his discomfort is controlled on the current regimen. Objective Vital Signs - Last 8 Hours Temp Pulse Resp BP Pulse Ox 02/19/17 08:20 78 02/19/17 08:16 16 95 02/19/17 07:32 98.3 F 73 18 109/69 94 02/19/17 04:05 71 02/19/17 04:00 97.2 F L 75 18 121/65 94 Intake and Output 02/18/17 02/19/17 02/19/17 23:59 07:59 15:59 Intake Total 711 / 711 360 / 360 Output Total 2099 / 2099 Balance 706 / 706 -2099 / -2099 360 / 360 Intake: Oral 711 / 711 360 / 360 Output: Urine 1050 / 1050 Urethral (Garay) 1050 / 1050 Estimated Blood Loss 5 / 5 Catheter 1050 / 1050 Other: Meal Breakfast Percent of Meal Consumed 30% Weight 121.3 kg Blood Glucose* 173 136 Patient Weight 02/19/17 23:59 Weight 121.3 kg - General physical appearance no distress, moderate pain - Eyes normal ocular movement - ENT dry mucosa, atraumatic, normocephalic - Neck Neck exam: trachea midline - Respiratory other (Decreased anterior breath sounds) - Cardiovascular Cardiovascular exam: Present: no murmurs/rubs/gallops (Regular rate; mechanical crisp heart tones) - Abdomen Abdomen: Present: bowel sounds present, soft - Integumentary other (Hematoma to the left anterior and lateral thorax, shoulder, and axila; Left chest surgical site with pink granulation tissue noted. no active bleeding) - Neurologic other (drowsy, but responds appropriately) - Psychiatric oriented to time, oriented to person - Labs 02/19/17 03:30 02/19/17 03:30 Diabetes panel 02/19/17 Range/Units 03:30 Sodium 133 L (136-145) mEq/L Potassium 4.2 (3.5-4.5) mEq/L Chloride 100 (98-109) mEq/L Carbon Dioxide 27 (19-29) mEq/L BUN 39 H D (8-26) mg/dL Creatinine 1.85 H (0.72-1.25) mg/dL Glucose 163 H (70-99) mg/dL Calcium 7.9 L (8.6-10.8) mg/dL Calcium panel 02/19/17 Range/Units 03:30 Calcium 7.9 L (8.6-10.8) mg/dL Pituitary panel 02/19/17 Range/Units 03:30 Sodium 133 L (136-145) mEq/L Potassium 4.2 (3.5-4.5) mEq/L Chloride 100 (98-109) mEq/L Carbon Dioxide 27 (19-29) mEq/L BUN 39 H D (8-26) mg/dL Creatinine 1.85 H (0.72-1.25) mg/dL Glucose 163 H (70-99) mg/dL Calcium 7.9 L (8.6-10.8) mg/dL Adrenal panel 02/19/17 Range/Units 03:30 Sodium 133 L (136-145) mEq/L Potassium 4.2 (3.5-4.5) mEq/L Chloride 100 (98-109) mEq/L Carbon Dioxide 27 (19-29) mEq/L BUN 39 H D (8-26) mg/dL Creatinine 1.85 H (0.72-1.25) mg/dL Glucose 163 H (70-99) mg/dL Calcium 7.9 L (8.6-10.8) mg/dL - VTE Documentation of Mechanical Device: Intermittent pneumatic compression device Consult Discharge Plan - Plan Referrals: NONE,PCP [Primary Care Provider] - NM,PCP [Non-Partnered Physician] - 02/26/17 10:00 am (THIS APPOINTMENT IS WITH THE [facility] ) <oDnna Elena - Last Filed: 02/19/17 16:29> Date of Encounter: 02/19/17 Time of Encounter: 16:25 - Assessment and Plan (1) Elevated risk of hemorrhage due to anticoagulant therapy Current Visit: Yes Status: Acute restarted heparin, w/o bolus, monitor H/H no signs of bleeding per [facility] PSYCHIATRIST when she changed dressing today (2) Anticoagulated Current Visit: Yes Status: Chronic continue heparin gtt, started coumadin (3) Chest wall hematoma Current Visit: Yes Status: Acute daily dressing changes, plan wound vac w/ black and white foam in a days continue ayanna wrap for pressure dressing Qualifiers: Encounter type: subsequent encounter Laterality: right Qualified Code(s) : S20.211D - Contusion of right front wall of thorax, subsequent encounter (4) Lymphoma Current Visit: No Status: Acute new diagnosis, pt will follow up with oncology as outpatient Qualifiers: Lymphoma type: non-Hodgkin Non-Hodgkin lymphoma type: unspecified type Lymphoma site: axillary Qualified Code(s): C85.94 - Non-Hodgkin lymphoma, unspecified, lymph nodes of axilla and upper limb Subjective Patient reports: still having pain, pain is less Narrative: he states chest pain is much better Objective Vital Signs - Last 8 Hours Temp Pulse Resp BP Pulse Ox 02/19/17 15:58 98.5 F 80 16 121/45 94 02/19/17 15:17 79 02/19/17 14:16 98.4 F 68 16 115/57 02/19/17 14:02 98.4 F 78 16 121/63 95 02/19/17 13:57 98.4 F 78 16 121/63 95 02/19/17 11:02 98.3 F 76 16 104/59 92 02/19/17 10:47 98.3 F 84 16 117/59 94 Intake and Output 02/19/17 02/19/17 02/19/17 07:59 15:59 23:59 Intake Total 1615 / 1615 120 / 120 Output Total 2099 / 2099 800 / 800 Balance -2100 / -2100 1615 / 1615 -680 / -680 Intake: Oral 1340 / 1340 120 / 120 Blood Product 275 / 275 Rbcs Leuko Poor As-1 0 / 0 Unit [id number] Rbcs Leuko Poor As-1 275 / 275 Unit [id number] Output: Urine 1050 / 1050 Urethral (Garay) 1050 / 1050 Catheter 1050 / 1050 800 / 800 Other: Meal Lunch Percent of Meal Consumed 60% Weight 121.3 kg Blood Glucose* 136 131 Patient Weight 02/19/17 23:59 Weight 121.3 kg - General physical appearance well developed, well nourished, no distress - Eyes PERRL, normal ocular movement - ENT atraumatic, normocephalic - Neck Neck exam: trachea midline - Respiratory normal expansion, normal respiratory effort - Cardiovascular Cardiovascular exam: Present: RRR - Incision Incision: Present: serosanguinous, open - Integumentary no rash, other - Neurologic other - Musculoskeletal normal posture - Psychiatric oriented to time, oriented to person - Labs 02/19/17 03:30 02/19/17 03:30 Diabetes panel 02/19/17 Range/Units 03:30 Sodium 133 L (136-145) mEq/L Potassium 4.2 (3.5-4.5) mEq/L Chloride 100 (98-109) mEq/L Carbon Dioxide 27 (19-29) mEq/L BUN 39 H D (8-26) mg/dL Creatinine 1.85 H (0.72-1.25) mg/dL Glucose 163 H (70-99) mg/dL Calcium 7.9 L (8.6-10.8) mg/dL Calcium panel 02/19/17 Range/Units 03:30 Calcium 7.9 L (8.6-10.8) mg/dL Pituitary panel 02/19/17 Range/Units 03:30 Sodium 133 L (136-145) mEq/L Potassium 4.2 (3.5-4.5) mEq/L Chloride 100 (98-109) mEq/L Carbon Dioxide 27 (19-29) mEq/L BUN 39 H D (8-26) mg/dL Creatinine 1.85 H (0.72-1.25) mg/dL Glucose 163 H (70-99) mg/dL Calcium 7.9 L (8.6-10.8) mg/dL Adrenal panel 02/19/17 Range/Units 03:30 Sodium 133 L (136-145) mEq/L Potassium 4.2 (3.5-4.5) mEq/L Chloride 100 (98-109) mEq/L Carbon Dioxide 27 (19-29) mEq/L BUN 39 H D (8-26) mg/dL Creatinine 1.85 H (0.72-1.25) mg/dL Glucose 163 H (70-99) mg/dL Calcium 7.9 L (8.6-10.8) mg/dL - Attending Attestation I have personally performed a face to face evaluation on this patient. I have reviewed and agree with the care plan. History and Exam by me shows:
[2017-02-19] MEDS ORDERED: 0.9 % Sodium Chloride 250 ML ONE (10:41)
--- NOTE | 2017-02-19 11:17 | Internal Med Progress Note ---
Date of Encounter: 02/19/17 Time of Encounter: 07:45 - Assessment and plan (1) Acute blood loss anemia Current Visit: No Status: Acute Assessment and plan: So far he recieved 8 U PRBC and 4 U FFP- his Hb 6.7 and INR 1.1 s/p Hematoma evacuation - drainage of 1 lit blood cont close monitoring of Hb / Hct Q 6hr will give 2 more U of PRBC surgery on borad (2) Chest wall hematoma Current Visit: Yes Status: Acute Assessment and plan: cont close monitoring of Hb / Hct Q 6hr no signs of infection..no need of abx now s/p Hematoma evacuation transfuse PRBC as needed Surgery clears him to start him on Heparin gtt so started him on Heparin gtt Qualifiers: Encounter type: subsequent encounter Laterality: right Qualified Code(s) : S20.211D - Contusion of right front wall of thorax, subsequent encounter (3) Non-Hodgkin lymphoma Current Visit: Yes Status: Acute Assessment and plan: reviewed recent biopsy results Heme Onc on board Qualifiers: Qualified Code(s): C85.90 - Non-Hodgkin lymphoma, unspecified, unspecified site (4) Acute kidney injury superimposed on chronic kidney disease Current Visit: Yes Status: Acute Assessment and plan: Improving Cr he might have CKD-3 with baseline Cr @ 1.48 avoid nephro toxic meds cont close monitoring (5) History of mitral valve replacement Current Visit: Yes Status: Chronic Assessment and plan: Cont holding coumadin surgery cleared him to go on anticoagulation Started him on heparin gtt today (6) Schizophrenia Current Visit: No Status: Chronic Assessment and plan: resumed home meds Qualifiers: Schizophrenia type: unspecified Qualified Code(s): F20.9 - Schizophrenia, unspecified (7) Hypertension Current Visit: No Status: Chronic Assessment and plan: stable with home meds on hydralazine IV PRN too Qualifiers: Hypertension type: essential hypertension Qualified Code(s): I10 - Essential (primary) hypertension (8) Obstructive sleep apnea Current Visit: Yes Status: Chronic Assessment and plan: CPAP QHS - Subjective Interval history: Mr. Pace is a 76 year old male with history of mechanical mitral valve on anticoagulation, CKD, coronary artery disease, recently diagnosed lymphoma presents with right-sided chest wall pain. Patient presents after having a recent lymph node resection by Dr. Elena on 02/11/2017. Patient reports progressive pain, swelling, and bruising over the area. Patient was hospitalized in the [place] for this issue on 02/15/17 and initially his hemoglobin on presentation there was 9.8, rechecked this morning found it to be 6.3. The patient was transferred to our ER and a CT scan showed a large hematoma between the pectoralis major and pectoralis minor muscle. He was admitted here for acute anemia with large left chest wall hematoma. His Hb kept on dropping, this morning @ 6.7. He did have hematoma evacuation done y/d. He received total 6 U PRBC and 4 U FFP y/d.Pt is alert, awake and O 3 today. Pain is tolerable with medications. - Constitutional Vitals: Temp Pulse Resp BP Pulse Ox 98.3 F 76 16 104/59 92 02/19/17 11:02 02/19/17 11:02 02/19/17 11:02 02/19/17 11:02 02/19/17 11:02 General appearance: Present: A&O X 3, answers questions appropriately - Head Head exam: Present: atraumatic, normal inspection - Neck Neck exam general surgery: Present: supple - Respiratory Respiratory exam: Present: decreased breath sounds, wheezes. Absent: rales, respiratory distress, rhonchi - Cardiovascular Cardiovascular exam: Present: RRR, +S1, +S2. Absent: diastolic murmur, gallop, rubs, systolic murmur - Extremities Exam Additional comments: s/p hematoma evacuation - dressing placed on Rt axilla / lateral chest wall region. Improved swelling, induration noticed extending horizontally Rt lateral chest wall region to anterior chest wall region medially and vertically axilla to diaphramatic region on Rt lateral chest region. Diffuse echymosis / discoloration noticed through out lateral chest wall region - Neurological Exam Neurological exam: Present: alert, oriented X3 - Psychiatric Psychiatric exam: Present: normal affect, normal mood Internal Medicine: Result - Labs CBC & Chem 7: 02/19/17 03:30 02/19/17 03:30 Labs: Short CBC 02/18/17 02/18/17 02/19/17 Range/Units 14:44 21:22 03:30 WBC 8.6 (4.3-11.1) K/mcL Hgb 6.8 L 7.0 L 6.7 L (12.9-16.9) g/dL Hct 20.8 L 21.4 L 20.0 L (37.5-50.1) % Plt Count 102 L (140-400) K/mcL Neutrophils # 7.1 (1.6-8.9) K/mcL BMP 02/19/17 03:30 Sodium 133 L Potassium 4.2 Chloride 100 Carbon Dioxide 27 BUN 39 H D Creatinine 1.85 H Glucose 163 H Calcium 7.9 L - ABG Interpretation ABG results: PT/INR, D-dimer PT 12.1 Seconds (9.4-12.1) 02/19/17 03:30 - VTE Documentation of Mechanical Device: Intermittent pneumatic compression device Consult Discharge Plan - Plan Referrals: NONE,PCP [Primary Care Provider] - [place],PCP [Non-Partnered Physician] - 02/26/17 10:00 am (THIS APPOINTMENT IS WITH THE [facility] TEAM )
[2017-02-19] MEDS ORDERED: *HR* Heparin 5,000 UNIT/ML VIAL IVP PRN ×2 (14:55)
[2017-02-19] MEDS: Heparin 25,000 UNIT/500 ML D5W 25,000 UNIT/500 ML MLS IVC SCH (16:16)
[2017-02-19 17:39] LABS: Hematocrit 24.5 % (37.5-50.1); Hemoglobin 7.9 g/dL (12.9-16.9)
[2017-02-19] MEDS ORDERED: *HR* Warfarin 7.5 MG TABLET PO SCH (18:00)
[2017-02-19] MEDS: risperiDONE 1 MG TABLET PO SCH (20:30)
[2017-02-19] MEDS: Simethicone 80 MG TAB.CHEW PO PRN (20:50)
[2017-02-19 22:51] LABS: Hematocrit 24.1 % (37.5-50.1)
[2017-02-20] MEDS ORDERED: Bisacodyl 10 MG RECTAL SUPPOSITORY RC ONE (00:16)
[2017-02-20] MEDS: *HR* HYDROcodone/Acet 5/325 mg TABLET PO PRN (05:09)
[2017-02-20 06:36] LABS: BUN/Creatinine Ratio 24 (6-26); Blood Urea Nitrogen 34 mg/dL (8-26); Calcium 8.1 mg/dL (8.6-10.8); Carbon Dioxide 29 mEq/L (19-29); Chloride 103 mEq/L (98-109); Glucose 109 mg/dL (70-99); Magnesium 2.4 mg/dL (1.6-2.6); Osmolality,Calculated 292 (280-300); Potassium 3.6 mEq/L (3.5-4.5); Sodium 137 mEq/L (136-145); eGFR For African Americans > 60 (> 60); eGFR For Non-African Americans 50 (> 60)
[2017-02-20 06:44] LABS: Activated Partial Thrombo Time 145.1 Seconds (26.0-36.0); Basophils % 0.2 %; Eosinophils # 0.3 K/mcL (0.0-0.6); Hemoglobin 7.9 g/dL (12.9-16.9); Immature Granulocytes % 2.2 % (0-4); Lymphocytes # 1.1 K/mcL (0.6-4.6); Lymphocytes % 12.2 %; Mean Corpuscular HGB Conc 32.9 g/dL (31.6-35.5); Mean Corpuscular Hemoglobin 29.8 pg (28.0-33.3); Mean Corpuscular Volume 90.6 fL (83.0-100.0); Monocytes % 11.3 %; Neutrophils # 6.5 K/mcL (1.6-8.9); Nucleated Red Blood Cells 1.2 /100 WBC (0); Platelet Count 114 K/mcL (140-400); Red Blood Count 2.65 M/mcL (4.19-5.50); Red Cell Distribution Width 16.7 % (11.5-14.5); Segmented Neutrophils % 71.1 %
[2017-02-20 06:55] LABS: Heparin anti-factor XA UFH 1.14 IU/mL (0.30-0.70)
[2017-02-20] MEDS: Heparin 25,000 UNIT/500 ML D5W 25,000 UNIT/500 ML MLS IVC SCH (07:38)
[2017-02-20] MEDS: Fluticasone Propionate Nasal 50 MCG/SPRAY BOTTLE NS SCH ×2 (09:31→20:05)
--- NOTE | 2017-02-20 10:33 | Internal Med Progress Note ---
Date of Encounter: 02/20/17 Time of Encounter: 10:31 - Assessment and plan (1) Acute blood loss anemia Current Visit: No Status: Acute Assessment and plan: So far he recieved 10 U PRBC and 4 U FFP- his Hb 7.9 and INR 1.1 s/p Hematoma evacuation - drainage of 1 lit blood so far stable Hb since y/d cont close monitoring of Hb / Hct Q 12hr surgery on borad (2) Chest wall hematoma Current Visit: Yes Status: Acute Assessment and plan: cont close monitoring of Hb / Hct Q 12 hr no signs of infection..no need of abx now s/p Hematoma evacuation transfuse PRBC as needed Surgery cleared him to start him on Heparin gtt Cont on Heparin gtt Noticed that surgery also started him on Coumadin too d/c Femoral Central line d/c pereira cath OOB to chair .. Activity as tolerated PT / OT eval Qualifiers: Encounter type: subsequent encounter Laterality: right Qualified Code(s) : S20.211D - Contusion of right front wall of thorax, subsequent encounter (3) Non-Hodgkin lymphoma Current Visit: Yes Status: Acute Assessment and plan: reviewed recent biopsy results Heme Onc on board Qualifiers: Qualified Code(s): C85.90 - Non-Hodgkin lymphoma, unspecified, unspecified site (4) Acute kidney injury superimposed on chronic kidney disease Current Visit: Yes Status: Acute Assessment and plan: Improved..at his baseline he might have CKD-3 with baseline Cr @ 1.48 avoid nephro toxic meds cont close monitoring (5) History of mitral valve replacement Current Visit: Yes Status: Chronic Assessment and plan: Cont holding coumadin surgery cleared him to go on anticoagulation Started him on heparin gtt today (6) Schizophrenia Current Visit: No Status: Chronic Assessment and plan: resumed home meds Qualifiers: Schizophrenia type: unspecified Qualified Code(s): F20.9 - Schizophrenia, unspecified (7) Hypertension Current Visit: No Status: Chronic Assessment and plan: stable with home meds on hydralazine IV PRN too Qualifiers: Hypertension type: essential hypertension Qualified Code(s): I10 - Essential (primary) hypertension (8) Obstructive sleep apnea Current Visit: Yes Status: Chronic Assessment and plan: CPAP QHS - Subjective Interval history: Mr. Pace is a 76 year old male with history of mechanical mitral valve on anticoagulation, CKD, coronary artery disease, recently diagnosed lymphoma presents with right-sided chest wall pain. Patient presents after having a recent lymph node resection by Dr. Elena on 02/11/2017. Patient reports progressive pain, swelling, and bruising over the area. Patient was hospitalized in the [place] for this issue on 02/15/17 and initially his hemoglobin on presentation there was 9.8, rechecked this morning found it to be 6.3. The patient was transferred to our ER and a CT scan showed a large hematoma between the pectoralis major and pectoralis minor muscle. He was admitted here for acute anemia with large left chest wall hematoma. He did have hematoma evacuation done on 02/18/17. He received total 8 U PRBC and 4 U FFP.Pt is alert , awake and O 3 today. Pain is tolerable with medications. - Constitutional Vitals: Temp Pulse Resp BP Pulse Ox 98.6 F 74 14 119/69 96 02/20/17 07:22 02/20/17 09:28 02/20/17 07:22 02/20/17 07:22 02/20/17 09:28 General appearance: Present: A&O X 3, answers questions appropriately - Head Head exam: Present: atraumatic, normal inspection - Respiratory Respiratory exam: Present: decreased breath sounds, wheezes. Absent: rales, respiratory distress, rhonchi - Cardiovascular Cardiovascular exam: Present: RRR, +S1, +S2, systolic murmur - GI/Abdominal GI/Abdominal exam: Present: normal bowel sounds, soft. Absent: distended, firm , tenderness - Extremities Exam Extremities exam: Absent: tenderness, warm Additional comments: Gallstone in the gallbladder neck. The gallbladder is distended without definite evidence of acute cholecystitis. - Psychiatric Psychiatric exam: Present: normal affect, normal mood Internal Medicine: Result - Labs CBC & Chem 7: 02/20/17 06:10 02/20/17 06:10 Labs: Short CBC 02/19/17 02/19/17 02/20/17 Range/Units 17:15 22:41 06:10 WBC 9.1 (4.3-11.1) K/mcL Hgb 7.9 L 8.0 L 7.9 L (12.9-16.9) g/dL Hct 24.5 L 24.1 L 24.0 L (37.5-50.1) % Plt Count 114 L (140-400) K/mcL Neutrophils # 6.5 (1.6-8.9) K/mcL BMP 02/20/17 06:10 Sodium 137 Potassium 3.6 Chloride 103 Carbon Dioxide 29 BUN 34 H Creatinine 1.39 H Glucose 109 H Calcium 8.1 L - ABG Interpretation ABG results: PT/INR, D-dimer PT 12.1 Seconds (9.4-12.1) 02/19/17 03:30 - VTE Documentation of Mechanical Device: Intermittent pneumatic compression device Consult Discharge Plan - Plan Referrals: NONE,PCP [Primary Care Provider] - [place],PCP [Non-Partnered Physician] - 02/26/17 10:00 am (THIS APPOINTMENT IS WITH THE [facility] TEAM )
[2017-02-20] MEDS: Budesonide/Formoterol 160/4.5 MDI IH SCH ×2 (11:08→20:15)
[2017-02-20] MEDS: Tiotropium 18 MCG inhalation IH SCH (11:09)
[2017-02-20] MEDS: *HR* HYDROmorphone (PF) 1 MG/ML SYRINGE IVP PRN ×2 (12:42→23:07)
--- NOTE | 2017-02-20 13:04 | General Surgery Progress Note ---
<[place],Lynnette Alba - Last Filed: 02/20/17 13:05> Date of Encounter: 02/20/17 Time of Encounter: 12:30 - Assessment and Plan (1) Chest wall hematoma Current Visit: Yes Status: Acute POD #2 Evacuation right axilla and chest wall hematoma/blood Continue supportive care and discomfort management Daily wound care: pack with saline moistened Kerlix and cover with dry dressing per surgical team. May reinforce/change outer dressing PRN. Wrap AYANNA bandage around thorax for light pressure- plan to change to wound vac in 24-48 hours. Monitor H&H and transfuse as indicated Continue heparin gtt per- follow protocol (no bolus) Coumadin started 02/19/17 Qualifiers: Encounter type: subsequent encounter Laterality: right Qualified Code(s) : S20.211D - Contusion of right front wall of thorax, subsequent encounter (2) Anemia Current Visit: Yes Status: Acute Monitor Hemoglobin and Hematocrit Hgb 6.8>8>7.9 Transfuse as necessary No evidence of current or ongoing bleeding at this time Qualifiers: Anemia type: unspecified type Qualified Code(s): D64.9 - Anemia, unspecified (3) History of mitral valve replacement Current Visit: Yes Status: Chronic Continue heparin gtt per- follow protocol (no bolus) Coumadin started 02/19/17 Check INR in the am (4) Schizophrenia Current Visit: No Status: Chronic Qualifiers: Schizophrenia type: unspecified Qualified Code(s): F20.9 - Schizophrenia, unspecified Subjective Patient reports: feels better, still having pain, pain is less, voiding w/o difficulty, flatus, no bowel movement, afebrile Objective Vital Signs - Last 8 Hours Temp Pulse Resp BP Pulse Ox 02/20/17 11:59 69 94 02/20/17 11:25 98.9 F 86 15 124/78 96 02/20/17 09:28 74 96 02/20/17 07:22 98.6 F 70 14 119/69 94 02/20/17 07:13 69 93 Intake and Output 02/19/17 02/20/17 02/20/17 23:59 07:59 15:59 Intake Total 902 / 902 500 / 500 250 / 250 Output Total 1650 / 1650 1000 / 1000 300 / 300 Balance -748 / -748 -500 / -500 -50 / -50 Intake: IV Fluids 500 / 500 Heparin 25,000 UNIT/500 500 / 500 ML D5W 25,000 unit In 500 ml @ 14 UNIT/KG/HR 33. 964 mls/hr IVC .[id number] [facility] Rx#:[id number] Oral 600 / 600 0 / 0 250 / 250 Blood Product 302 / 302 Rbcs Leuko Poor As-1 302 / 302 Unit [id number] Output: Urine 300 / 300 Urethral (Garay) 300 / 300 Catheter 1650 / 1650 1000 / 1000 Other: Meal Dinner Breakfast Percent of Meal Consumed 100% 15% Weight 121.3 kg Blood Glucose* 146 116 114 Patient Weight 02/20/17 23:59 Weight 121.3 kg - General physical appearance well developed, well nourished, no distress - Eyes normal ocular movement - ENT normal mucosa, atraumatic, normocephalic - Neck Neck exam: trachea midline - Respiratory normal respiratory effort, clear to auscultation - Cardiovascular Cardiovascular exam: Present: RRR - Abdomen Abdomen: Present: bowel sounds present, soft, tender (associated with hematoma right side) - Incision Incision: Present: serosanguinous (moderate amount), open (right axilla/chest wall) - Neurologic CN 2-12 grossly intact - Psychiatric oriented to person, oriented to place, speech is normal - Labs 02/20/17 06:10 02/20/17 06:10 Diabetes panel 02/20/17 Range/Units 06:10 Sodium 137 (136-145) mEq/L Potassium 3.6 (3.5-4.5) mEq/L Chloride 103 (98-109) mEq/L Carbon Dioxide 29 (19-29) mEq/L BUN 34 H (8-26) mg/dL Creatinine 1.39 H (0.72-1.25) mg/dL Glucose 109 H (70-99) mg/dL Calcium 8.1 L (8.6-10.8) mg/dL Calcium panel 02/20/17 Range/Units 06:10 Calcium 8.1 L (8.6-10.8) mg/dL Pituitary panel 02/20/17 Range/Units 06:10 Sodium 137 (136-145) mEq/L Potassium 3.6 (3.5-4.5) mEq/L Chloride 103 (98-109) mEq/L Carbon Dioxide 29 (19-29) mEq/L BUN 34 H (8-26) mg/dL Creatinine 1.39 H (0.72-1.25) mg/dL Glucose 109 H (70-99) mg/dL Calcium 8.1 L (8.6-10.8) mg/dL Adrenal panel 02/20/17 Range/Units 06:10 Sodium 137 (136-145) mEq/L Potassium 3.6 (3.5-4.5) mEq/L Chloride 103 (98-109) mEq/L Carbon Dioxide 29 (19-29) mEq/L BUN 34 H (8-26) mg/dL Creatinine 1.39 H (0.72-1.25) mg/dL Glucose 109 H (70-99) mg/dL Calcium 8.1 L (8.6-10.8) mg/dL - VTE Documentation of Mechanical Device: Intermittent pneumatic compression device Consult Discharge Plan - Plan Referrals: [facility],PCP [Non-Partnered Physician] - 02/26/17 10:00 am (THIS APPOINTMENT IS WITH THE [facility] TEAM ) - Attending Attestation For this encounter, I have reviewed the [employer] or PA documentation, treatment plan, and medical decision making; and I have had face to face time with this patient. <Donna Elena - Last Filed: 02/21/17 19:05> Date of Encounter: 02/20/17 - Assessment and Plan (1) Elevated risk of hemorrhage due to anticoagulant therapy Current Visit: Yes Status: Acute (2) Anticoagulated Current Visit: Yes Status: Chronic (3) Chest wall hematoma Current Visit: Yes Status: Acute Qualifiers: Encounter type: subsequent encounter Laterality: right Qualified Code(s) : S20.211D - Contusion of right front wall of thorax, subsequent encounter (4) Lymphoma Current Visit: No Status: Acute Qualifiers: Lymphoma type: non-Hodgkin Non-Hodgkin lymphoma type: unspecified type Lymphoma site: axillary Qualified Code(s): C85.94 - Non-Hodgkin lymphoma, unspecified, lymph nodes of axilla and upper limb Subjective Patient reports: feels better, still having pain, pain is less, voiding w/o difficulty, flatus, no bowel movement, afebrile Objective Vital Signs - Last 8 Hours Temp Pulse Resp BP 02/21/17 15:25 98.8 F 57 16 117/68 Intake and Output 02/21/17 02/21/17 02/21/17 07:59 15:59 23:59 Intake Total 20 / 20 870 / 870 240 / 240 Output Total 250 / 250 875 / 875 Balance -230 / -230 -5 / -5 240 / 240 Intake: IV Fluids 20 / 20 150 / 150 Heparin 25,000 UNIT/500 20 / 20 150 / 150 ML D5W 25,000 unit In 500 ml @ 14 UNIT/KG/HR 33. 964 mls/hr IVC .[id number] [facility] Rx#:[id number] Oral 720 / 720 240 / 240 Output: Urine 250 / 250 875 / 875 Other: Meal Lunch Dinner Percent of Meal Consumed 100% 50% Weight 121.3 kg Blood Glucose* 118 127 Patient Weight 02/21/17 23:59 Weight 121.3 kg - General physical appearance well developed, well nourished, no distress, obese - Eyes PERRL, normal ocular movement - ENT normal mucosa, normocephalic - Neck Neck exam: trachea midline - Respiratory clear to auscultation - Cardiovascular Cardiovascular exam: Present: RRR - Abdomen Abdomen: Present: bowel sounds present, soft, tender - Integumentary no growths - Neurologic CN 2-12 grossly intact - Musculoskeletal normal posture - Psychiatric oriented to time, oriented to person, memory intact - Labs 02/21/17 18:11 02/21/17 01:01 Diabetes panel 02/21/17 Range/Units 01:01 Sodium 135 L (136-145) mEq/L Potassium 3.9 (3.5-4.5) mEq/L Chloride 103 (98-109) mEq/L Carbon Dioxide 25 (19-29) mEq/L BUN 29 H (8-26) mg/dL Creatinine 1.16 (0.72-1.25) mg/dL Glucose 105 H (70-99) mg/dL Calcium 8.1 L (8.6-10.8) mg/dL Calcium panel 02/21/17 Range/Units 01:01 Calcium 8.1 L (8.6-10.8) mg/dL Pituitary panel 02/21/17 Range/Units 01:01 Sodium 135 L (136-145) mEq/L Potassium 3.9 (3.5-4.5) mEq/L Chloride 103 (98-109) mEq/L Carbon Dioxide 25 (19-29) mEq/L BUN 29 H (8-26) mg/dL Creatinine 1.16 (0.72-1.25) mg/dL Glucose 105 H (70-99) mg/dL Calcium 8.1 L (8.6-10.8) mg/dL Adrenal panel 02/21/17 Range/Units 01:01 Sodium 135 L (136-145) mEq/L Potassium 3.9 (3.5-4.5) mEq/L Chloride 103 (98-109) mEq/L Carbon Dioxide 25 (19-29) mEq/L BUN 29 H (8-26) mg/dL Creatinine 1.16 (0.72-1.25) mg/dL Glucose 105 H (70-99) mg/dL Calcium 8.1 L (8.6-10.8) mg/dL - Attending Attestation I have personally performed a face to face evaluation on this patient. I have reviewed and agree with the care plan. History and Exam by me shows:
[2017-02-20 13:52] LABS: Activated Partial Thrombo Time 90.7 Seconds (26.0-36.0)
[2017-02-20 14:24] LABS: INR 1.1
[2017-02-20] MEDS ORDERED: *HR* Warfarin 10 MG TABLET PO ONE (18:00)
[2017-02-20] MEDS ORDERED: Warfarin perPT PO PRN (18:00)
[2017-02-20] MEDS: risperiDONE 1 MG TABLET PO SCH (20:03)
[2017-02-20 21:57] LABS: Hematocrit 28.6 % (37.5-50.1); Hemoglobin 9.3 g/dL (12.9-16.9)
[2017-02-21 01:10] LABS: Basophils % 0.4 %; Eosinophils # 0.4 K/mcL (0.0-0.6); Eosinophils % 4.1 %; Hematocrit 25.8 % (37.5-50.1); Hemoglobin 8.5 g/dL (12.9-16.9); Immature Granulocytes % 2.1 % (0-4); Immature Platelets 5.7 % (1.1-6.1); Lymphocytes # 0.9 K/mcL (0.6-4.6); Mean Corpuscular HGB Conc 32.9 g/dL (31.6-35.5); Mean Corpuscular Hemoglobin 29.8 pg (28.0-33.3); Mean Corpuscular Volume 90.5 fL (83.0-100.0); Mean Platelet Volume 10.9 fL (9.4-12.4); Monocytes # 1.1 K/mcL (0.0-1.3); Monocytes % 12.4 %; Neutrophils # 6.3 K/mcL (1.6-8.9); Nucleated Red Blood Cells 0.4 /100 WBC (0); Platelet Count 151 K/mcL (140-400); Red Blood Count 2.85 M/mcL (4.19-5.50)
[2017-02-21 01:15] LABS: INR 1.1
[2017-02-21 01:22] LABS: BUN/Creatinine Ratio 25 (6-26); Blood Urea Nitrogen 29 mg/dL (8-26); Calcium 8.1 mg/dL (8.6-10.8); Carbon Dioxide 25 mEq/L (19-29); Chloride 103 mEq/L (98-109); Glucose 105 mg/dL (70-99); Osmolality,Calculated 286 (280-300); Potassium 3.9 mEq/L (3.5-4.5); eGFR For African Americans > 60 (> 60); eGFR For Non-African Americans > 60 (> 60)
[2017-02-21 01:23] LABS: Sodium 135 mEq/L (136-145)
[2017-02-21] MEDS: *HR* HYDROmorphone (PF) 1 MG/ML SYRINGE IVP PRN ×3 (05:14→20:22)
[2017-02-21] MEDS: Heparin 25,000 UNIT/500 ML D5W 25,000 UNIT/500 ML MLS IVC SCH ×3 (05:15→20:26)
[2017-02-21 09:35] LABS: Hematocrit 28.4 % (37.5-50.1)
[2017-02-21] MEDS: Fluticasone Propionate Nasal 50 MCG/SPRAY BOTTLE NS SCH ×2 (09:40→20:29)
[2017-02-21] MEDS: Tiotropium 18 MCG inhalation IH SCH (09:48)
[2017-02-21] MEDS: Budesonide/Formoterol 160/4.5 MDI IH SCH ×2 (09:48→20:29)
--- NOTE | 2017-02-21 10:12 | Internal Med Progress Note ---
Date of Encounter: 02/21/17 Time of Encounter: 10:09 - Assessment and plan (1) Acute blood loss anemia Current Visit: No Status: Acute Assessment and plan: So far he recieved 10 U PRBC and 4 U FFP- his Hb 7.9 and INR 1.1 s/p Hematoma evacuation - drainage of 1 lit blood so far stable Hb since last 2 days cont close monitoring of Hb / Hct Q 12hr waiting on surgery clearance for wound care - Wound vac Vs daily dressings (2) Chest wall hematoma Current Visit: Yes Status: Acute Assessment and plan: cont close monitoring of Hb / Hct Q 12 hr no signs of infection..no need of abx now s/p Hematoma evacuation transfuse PRBC as needed Cont Coumadin and bridging with Heparin gtt OOB to chair .. Activity as tolerated PT / OT eval Qualifiers: Encounter type: subsequent encounter Laterality: right Qualified Code(s) : S20.211D - Contusion of right front wall of thorax, subsequent encounter (3) Non-Hodgkin lymphoma Current Visit: Yes Status: Acute Assessment and plan: reviewed recent biopsy results Heme Onc on board Qualifiers: Qualified Code(s): C85.90 - Non-Hodgkin lymphoma, unspecified, unspecified site (4) Acute kidney injury superimposed on chronic kidney disease Current Visit: Yes Status: Acute Assessment and plan: Improved..at his baseline he might have CKD-3 with baseline Cr @ 1.48 avoid nephro toxic meds cont close monitoring (5) History of mitral valve replacement Current Visit: Yes Status: Chronic Assessment and plan: Cont holding coumadin surgery cleared him to go on anticoagulation Started him on Coumadin bridging with Heparin (6) Schizophrenia Current Visit: No Status: Chronic Assessment and plan: resumed home meds Qualifiers: Schizophrenia type: unspecified Qualified Code(s): F20.9 - Schizophrenia, unspecified (7) Hypertension Current Visit: No Status: Chronic Assessment and plan: stable with home meds on hydralazine IV PRN too Qualifiers: Hypertension type: essential hypertension Qualified Code(s): I10 - Essential (primary) hypertension (8) Obstructive sleep apnea Current Visit: Yes Status: Chronic Assessment and plan: CPAP QHS - Subjective Interval history: Mr. Pace is a 76 year old male with history of mechanical mitral valve on anticoagulation, CKD, coronary artery disease, recently diagnosed lymphoma presents with right-sided chest wall pain. Patient presents after having a recent lymph node resection by Dr. Elena on 02/11/2017. Patient reports progressive pain, swelling, and bruising over the area. Patient was hospitalized in the [place] for this issue on 02/15/17 and initially his hemoglobin on presentation there was 9.8, rechecked this morning found it to be 6.3. The patient was transferred to our ER and a CT scan showed a large hematoma between the pectoralis major and pectoralis minor muscle. He was admitted here for acute anemia with large left chest wall hematoma. He did have hematoma evacuation done on 02/18/17. He received total 10 U PRBC and 4 U FFP.Pt is alert , awake and O x 3 today. Pain is tolerable with medications. - Constitutional Vitals: Temp Pulse Resp BP Pulse Ox 98.5 F 73 18 123/66 96 02/21/17 06:58 02/21/17 08:00 02/21/17 06:58 02/21/17 06:58 02/21/17 07:33 General appearance: Present: A&O X 3, answers questions appropriately - Head Head exam: Present: atraumatic, normal inspection - Respiratory Respiratory exam: Present: decreased breath sounds. Absent: rales, respiratory distress, rhonchi, stridor - Cardiovascular Cardiovascular exam: Present: RRR, +S1, +S2, systolic murmur - Extremities Exam Extremities exam: Absent: calf tenderness, pedal edema, tenderness Additional comments: s/p hematoma evacuation - dressing placed on Rt axilla / lateral chest wall region. Improved swelling, induration noticed extending horizontally Rt lateral chest wall region to anterior chest wall region medially and vertically axilla to diaphramatic region on Rt lateral chest region. Improving echymosis / discoloration noticed through out lateral chest wall region - Neurological Exam Neurological exam: Present: alert, oriented X3 - Psychiatric Psychiatric exam: Present: normal affect, normal mood Internal Medicine: Result - Labs CBC & Chem 7: 02/21/17 09:07 02/21/17 01:01 Labs: Short CBC 02/20/17 02/21/17 02/21/17 Range/Units 21:44 01:01 09:07 WBC 8.9 (4.3-11.1) K/mcL Hgb 9.3 L 8.5 L 9.0 L (12.9-16.9) g/dL Hct 28.6 L 25.8 L 28.4 L (37.5-50.1) % Plt Count 151 (140-400) K/mcL Neutrophils # 6.3 (1.6-8.9) K/mcL BMP 02/21/17 01:01 Sodium 135 L Potassium 3.9 Chloride 103 Carbon Dioxide 25 BUN 29 H Creatinine 1.16 Glucose 105 H Calcium 8.1 L - ABG Interpretation ABG results: PT/INR, D-dimer PT 12.0 Seconds (9.4-12.1) 02/21/17 01:01 - VTE Documentation of Mechanical Device: Intermittent pneumatic compression device Consult Discharge Plan - Plan Referrals: NONE,PCP [Primary Care Provider] - [place],PCP [Non-Partnered Physician] - 02/26/17 10:00 am (THIS APPOINTMENT IS WITH THE [facility] TEAM )
--- NOTE | 2017-02-21 11:01 | General Surgery Progress Note ---
<Herberth Toure - Last Filed: 02/21/17 10:58> Date of Encounter: 02/21/17 Time of Encounter: 08:30 - Assessment and Plan (1) Chest wall hematoma Current Visit: Yes Status: Acute POD #3 Evacuation right axilla and chest wall hematoma Supportive care, pain management Wound care - plan [facility] D/C planning per hospitalist tentative for Saturday to [place] Qualifiers: Encounter type: subsequent encounter Laterality: right Qualified Code(s) : S20.211D - Contusion of right front wall of thorax, subsequent encounter (2) Acute blood loss anemia Current Visit: No Status: Acute Follow Hgb Last 8.5 down from 9.3 up from 8.0 Transfuse as necessary Monitor for new or ongoing bleeding (3) History of mitral valve replacement Current Visit: Yes Status: Chronic Continue heparin bridge to coumadin (started 02/19/17) Follow INR (last 1.1) (4) Schizophrenia Current Visit: No Status: Chronic Qualifiers: Schizophrenia type: unspecified Qualified Code(s): F20.9 - Schizophrenia, unspecified Subjective Patient reports: no new complaints, still having pain, pain is less, tolerating a regular diet, voiding w/o difficulty, afebrile Objective Vital Signs - Last 8 Hours Temp Pulse Resp BP Pulse Ox 02/21/17 09:30 94 02/21/17 08:00 73 02/21/17 07:33 81 96 02/21/17 06:58 98.5 F 71 18 123/66 98 02/21/17 04:00 76 02/21/17 03:43 98.5 F 76 17 126/81 98 Intake and Output 02/20/17 02/21/17 02/21/17 23:59 07:59 15:59 Intake Total 730 / 730 370 / 370 Output Total 445 / 445 250 / 250 100 / 100 Balance 285 / 285 -230 / -230 270 / 270 Intake: IV Fluids 270 / 270 20 / 20 150 / 150 Heparin 25,000 UNIT/500 270 / 270 20 / 20 150 / 150 ML D5W 25,000 unit In 500 ml @ 14 UNIT/KG/HR 33. 964 mls/hr IVC .[id number] [facility] Rx#:[id number] Oral 460 / 460 220 / 220 Output: Urine 220 / 220 250 / 250 100 / 100 Catheter 225 / 225 Other: Meal Dinner Breakfast Percent of Meal Consumed 50% 20% Weight 121.3 kg Blood Glucose* 134 118 Patient Weight 02/21/17 23:59 Weight 121.3 kg - General physical appearance well developed, well nourished, no distress - Eyes normal ocular movement - ENT atraumatic, normocephalic - Neck Neck exam: trachea midline - Respiratory normal expansion, normal respiratory effort, clear to auscultation - Cardiovascular Cardiovascular exam: Present: RRR - Abdomen Abdomen: Present: bowel sounds present, soft, tender (in area of hematoma, continues to lessen) - Incision Incision: Present: draining, serosanguinous, open - Integumentary other (extensive ecchtymosis in the right axilla, anterior chest and abdomen, slight extension medially across midline of abdomen) - Labs 02/21/17 09:07 02/21/17 01:01 Diabetes panel 02/21/17 Range/Units 01:01 Sodium 135 L (136-145) mEq/L Potassium 3.9 (3.5-4.5) mEq/L Chloride 103 (98-109) mEq/L Carbon Dioxide 25 (19-29) mEq/L BUN 29 H (8-26) mg/dL Creatinine 1.16 (0.72-1.25) mg/dL Glucose 105 H (70-99) mg/dL Calcium 8.1 L (8.6-10.8) mg/dL Calcium panel 02/21/17 Range/Units 01:01 Calcium 8.1 L (8.6-10.8) mg/dL Pituitary panel 02/21/17 Range/Units 01:01 Sodium 135 L (136-145) mEq/L Potassium 3.9 (3.5-4.5) mEq/L Chloride 103 (98-109) mEq/L Carbon Dioxide 25 (19-29) mEq/L BUN 29 H (8-26) mg/dL Creatinine 1.16 (0.72-1.25) mg/dL Glucose 105 H (70-99) mg/dL Calcium 8.1 L (8.6-10.8) mg/dL Adrenal panel 02/21/17 Range/Units 01:01 Sodium 135 L (136-145) mEq/L Potassium 3.9 (3.5-4.5) mEq/L Chloride 103 (98-109) mEq/L Carbon Dioxide 25 (19-29) mEq/L BUN 29 H (8-26) mg/dL Creatinine 1.16 (0.72-1.25) mg/dL Glucose 105 H (70-99) mg/dL Calcium 8.1 L (8.6-10.8) mg/dL - VTE Documentation of Mechanical Device: Intermittent pneumatic compression device Consult Discharge Plan - Plan [facility]errals: [facility] [[facility]-Partnered Physician] - 02/26/17 10:00 am (THIS APPOINTMENT IS WITH THE [facility] TEAM ) <Donna Elena - Last Filed: 02/21/17 19:07> Date of Encounter: 02/21/17 - Assessment and Plan (1) Elevated risk of hemorrhage due to anticoagulant therapy Current Visit: Yes Status: Acute (2) Anticoagulated Current Visit: Yes Status: Chronic (3) Chest wall hematoma Current Visit: Yes Status: Acute patient would benefit from wound vac continue daily dressing changes prn pain control inr 1.1, continue heparin until anticoagulated Qualifiers: Encounter type: subsequent encounter Laterality: right Qualified Code(s) : S20.211D - Contusion of right front wall of thorax, subsequent encounter (4) Lymphoma Current Visit: No Status: Acute will f/u with oncology as outpatient Qualifiers: Lymphoma type: non-Hodgkin Non-Hodgkin lymphoma type: unspecified type Lymphoma site: axillary Qualified Code(s): C85.94 - Non-Hodgkin lymphoma, unspecified, lymph nodes of axilla and upper limb Subjective Patient reports: no new complaints, still having pain, pain is less, tolerating a regular diet, no bowel movement Objective Vital Signs - Last 8 Hours Temp Pulse Resp BP 02/21/17 15:25 98.8 F 57 16 117/68 Intake and Output 02/21/17 02/21/17 02/21/17 07:59 15:59 23:59 Intake Total 870 / 870 240 / 240 Output Total 250 / 250 875 / 875 Balance -230 / -230 -5 / -5 240 / 240 Intake: IV Fluids 20 / 20 150 / 150 Heparin 25,000 UNIT/500 20 / 20 150 / 150 ML D5W 25,000 unit In 500 ml @ 14 UNIT/KG/HR 33. 964 mls/hr IVC .[id number] [facility] Rx#:[id number] Oral 720 / 720 240 / 240 Output: Urine 250 / 250 875 / 875 Other: Meal Lunch Dinner Percent of Meal Consumed 100% 50% Weight 121.3 kg Blood Glucose* 118 127 Patient Weight 02/21/17 23:59 Weight 121.3 kg - General physical appearance well developed, well nourished, no distress, obese - Eyes PERRL, normal ocular movement - ENT normal mucosa, atraumatic, normocephalic - Neck Neck exam: trachea midline - Respiratory normal expansion, clear to auscultation - Cardiovascular Cardiovascular exam: Present: RRR - Abdomen Abdomen: Present: bowel sounds present, soft, tender - Incision Incision: Present: draining, serosanguinous, open - Integumentary no rash - Neurologic CN 2-12 grossly intact - Musculoskeletal normal posture - Psychiatric oriented to time, oriented to person, memory intact - Labs 02/21/17 18:11 02/21/17 01:01 Diabetes panel 02/21/17 Range/Units 01:01 Sodium 135 L (136-145) mEq/L Potassium 3.9 (3.5-4.5) mEq/L Chloride 103 (98-109) mEq/L Carbon Dioxide 25 (19-29) mEq/L BUN 29 H (8-26) mg/dL Creatinine 1.16 (0.72-1.25) mg/dL Glucose 105 H (70-99) mg/dL Calcium 8.1 L (8.6-10.8) mg/dL Calcium panel 02/21/17 Range/Units 01:01 Calcium 8.1 L (8.6-10.8) mg/dL Pituitary panel 02/21/17 Range/Units 01:01 Sodium 135 L (136-145) mEq/L Potassium 3.9 (3.5-4.5) mEq/L Chloride 103 (98-109) mEq/L Carbon Dioxide 25 (19-29) mEq/L BUN 29 H (8-26) mg/dL Creatinine 1.16 (0.72-1.25) mg/dL Glucose 105 H (70-99) mg/dL Calcium 8.1 L (8.6-10.8) mg/dL Adrenal panel 02/21/17 Range/Units 01:01 Sodium 135 L (136-145) mEq/L Potassium 3.9 (3.5-4.5) mEq/L Chloride 103 (98-109) mEq/L Carbon Dioxide 25 (19-29) mEq/L BUN 29 H (8-26) mg/dL Creatinine 1.16 (0.72-1.25) mg/dL Glucose 105 H (70-99) mg/dL Calcium 8.1 L (8.6-10.8) mg/dL
[2017-02-21] MEDS: *HR* Warfarin 10 MG TABLET PO SCH (18:30)
[2017-02-21] MEDS: *HR* HYDROcodone/Acet 5/325 mg TABLET PO PRN (18:31)
[2017-02-21 18:32] LABS: Hematocrit 27.6 % (37.5-50.1); Hemoglobin 9.2 g/dL (12.9-16.9)
[2017-02-21] MEDS: risperiDONE 1 MG TABLET PO SCH (20:21)
[2017-02-22] MEDS: *HR* HYDROmorphone (PF) 1 MG/ML SYRINGE IVP PRN ×4 (00:40→17:45)
[2017-02-22] MEDS: *HR* HYDROcodone/Acet 5/325 mg TABLET PO PRN ×3 (03:39→21:15)
[2017-02-22 05:02] LABS: Hematocrit 27.7 % (37.5-50.1); Hemoglobin 9.1 g/dL (12.9-16.9)
[2017-02-22 05:03] LABS: Basophils % 0.4 %; Eosinophils # 0.3 K/mcL (0.0-0.6); Eosinophils % 4.4 %; Hematocrit 27.5 % (37.5-50.1); Immature Granulocytes % 2.9 % (0-4); Lymphocytes # 1.1 K/mcL (0.6-4.6); Mean Corpuscular HGB Conc 32.7 g/dL (31.6-35.5); Mean Corpuscular Hemoglobin 29.4 pg (28.0-33.3); Mean Corpuscular Volume 89.9 fL (83.0-100.0); Mean Platelet Volume 10.5 fL (9.4-12.4); Monocytes % 13.4 %; Neutrophils # 4.8 K/mcL (1.6-8.9); Nucleated Red Blood Cells 0.3 /100 WBC (0); Platelet Count 154 K/mcL (140-400); Red Blood Count 3.06 M/mcL (4.19-5.50); Red Cell Distribution Width 16.3 % (11.5-14.5); Segmented Neutrophils % 63.9 %
[2017-02-22 05:04] LABS: INR 1.2; Prothrombin Time 13.3 Seconds (9.4-12.1)
[2017-02-22 05:20] LABS: BUN/Creatinine Ratio 21 (6-26); Blood Urea Nitrogen 27 mg/dL (8-26); Calcium 8.8 mg/dL (8.6-10.8); Carbon Dioxide 25 mEq/L (19-29); Chloride 104 mEq/L (98-109); Glucose 104 mg/dL (70-99); Osmolality,Calculated 287 (280-300); Potassium 4.2 mEq/L (3.5-4.5); Sodium 136 mEq/L (136-145); eGFR For African Americans > 60 (> 60); eGFR For Non-African Americans 55 (> 60)
[2017-02-22] MEDS: Budesonide/Formoterol 160/4.5 MDI IH SCH ×2 (08:05→20:12)
[2017-02-22] MEDS: Tiotropium 18 MCG inhalation IH SCH (08:05)
[2017-02-22] MEDS: Fluticasone Propionate Nasal 50 MCG/SPRAY BOTTLE NS SCH ×2 (08:07→21:15)
--- NOTE | 2017-02-22 09:18 | General Surgery Progress Note ---
<Herberth Toure - Last Filed: 02/22/17 10:43> Date of Encounter: 02/22/17 Time of Encounter: 07:30 - Assessment and Plan (1) Chest wall hematoma Current Visit: Yes Status: Acute POD #4 Evacuation right axilla and chest wall hematoma Supportive care, pain management Wound care - plan for wound vac today [facility] patient until off heparin gtt, so plan for DC is saturday Qualifiers: Encounter type: subsequent encounter Laterality: right Qualified Code(s) : S20.211D - Contusion of right front wall of thorax, subsequent encounter (2) Acute blood loss anemia Current Visit: No Status: Acute Follow Hgb Last 7.5 < 8.5 < 9.3 < 8.0 Transfuse as necessary Monitor for new or ongoing bleeding (3) History of mitral valve replacement Current Visit: Yes Status: Chronic Continue heparin bridge to coumadin (started 02/19/17) Follow INR (last 1.2 < 1.1) (4) Schizophrenia Current Visit: No Status: Chronic Stable May have had some tardive dyskinesia this am will monitor Qualifiers: Schizophrenia type: unspecified Qualified Code(s): F20.9 - Schizophrenia, unspecified Subjective Patient reports: no new complaints, still having pain (pain slightly worse compared to yesterday), flatus, bowel movement, afebrile Objective Vital Signs - Last 8 Hours Temp Pulse Resp BP Pulse Ox 02/22/17 08:05 16 96 02/22/17 07:25 98.7 F 73 18 137/78 95 02/22/17 03:51 99.3 F 86 22 159/84 94 Intake and Output 02/21/17 02/22/17 02/22/17 23:59 07:59 15:59 Intake Total 740 / 740 300 / 300 Output Total 225 / 225 475 / 475 Balance 515 / 515 -175 / -175 Intake: IV Fluids 500 / 500 300 / 300 Heparin 25,000 UNIT/500 500 / 500 300 / 300 ML D5W 25,000 unit In 500 ml @ 14 UNIT/KG/HR 33. 964 mls/hr IVC .[id number] [facility] Rx#:[id number] Oral 240 / 240 0 / 0 Output: Urine 225 / 225 475 / 475 Other: Meal Dinner Percent of Meal Consumed 50% # Urine Diapers 1 Weight 117.3 kg Blood Glucose* 128 Patient Weight 02/22/17 23:59 Weight 117.3 kg - General physical appearance well developed, well nourished, no distress - Eyes normal ocular movement - ENT atraumatic, normocephalic - Neck Neck exam: trachea midline - Respiratory normal expansion, normal respiratory effort, clear to auscultation - Cardiovascular Cardiovascular exam: Present: NR, irregular rhythm - Abdomen Abdomen: Present: bowel sounds present, soft, tender (associated with areas of ecchymosis) - Psychiatric memory intact, other (flat affect) - Labs 02/22/17 04:43 02/22/17 04:43 Diabetes panel 02/22/17 Range/Units 04:43 Sodium 136 (136-145) mEq/L Potassium 4.2 (3.5-4.5) mEq/L Chloride 104 (98-109) mEq/L Carbon Dioxide 25 (19-29) mEq/L BUN 27 H (8-26) mg/dL Creatinine 1.28 H (0.72-1.25) mg/dL Glucose 104 H (70-99) mg/dL Calcium 8.8 (8.6-10.8) mg/dL Calcium panel 02/22/17 Range/Units 04:43 Calcium 8.8 (8.6-10.8) mg/dL Pituitary panel 02/22/17 Range/Units 04:43 Sodium 136 (136-145) mEq/L Potassium 4.2 (3.5-4.5) mEq/L Chloride 104 (98-109) mEq/L Carbon Dioxide 25 (19-29) mEq/L BUN 27 H (8-26) mg/dL Creatinine 1.28 H (0.72-1.25) mg/dL Glucose 104 H (70-99) mg/dL Calcium 8.8 (8.6-10.8) mg/dL Adrenal panel 02/22/17 Range/Units 04:43 Sodium 136 (136-145) mEq/L Potassium 4.2 (3.5-4.5) mEq/L Chloride 104 (98-109) mEq/L Carbon Dioxide 25 (19-29) mEq/L BUN 27 H (8-26) mg/dL Creatinine 1.28 H (0.72-1.25) mg/dL Glucose 104 H (70-99) mg/dL Calcium 8.8 (8.6-10.8) mg/dL - VTE Documentation of Mechanical Device: Intermittent pneumatic compression device Consult Discharge Plan - Plan [facility]errals: [facility]Primary Care Provider[facility] - 02/26/17 10:00 am (THIS APPOINTMENT IS WITH THE [facility] TEAM ) <TyeshaDonna suresh Bren - Last Filed: 02/24/17 08:38> Date of Encounter: 02/22/17 Time of Encounter: 12:00 - Assessment and Plan (1) Elevated risk of hemorrhage due to anticoagulant therapy Current Visit: Yes Status: Acute (2) Anticoagulated Current Visit: Yes Status: Chronic continue heparin gtt until inr therapeutic on coumadin (3) Chest wall hematoma Current Visit: Yes Status: Acute prn pain control wound vac placed by [employer] Qualifiers: Encounter type: subsequent encounter Laterality: right Qualified Code(s) : S20.211D - Contusion of right front wall of thorax, subsequent encounter (4) Lymphoma Current Visit: No Status: Acute follow up with oncology as outpatient Qualifiers: Lymphoma type: non-Hodgkin Non-Hodgkin lymphoma type: other specified type Lymphoma site: axillary Qualified Code(s): C85.84 - Other specified types of non-Hodgkin lymphoma, lymph nodes of axilla and upper limb Subjective Patient reports: no new complaints, pain is less, tolerating a regular diet, flatus, no bowel movement Objective Vital Signs - Last 8 Hours Temp Pulse Resp BP Pulse Ox 02/24/17 07:51 97.9 F 76 16 128/70 95 02/24/17 04:03 97.9 F 86 14 127/79 96 Intake and Output 02/23/17 02/24/17 02/24/17 23:59 07:59 15:59 Intake Total 600 / 600 Output Total 100 / 100 0 / 0 Balance 500 / 500 0 / 0 Intake: IV Fluids 500 / 500 Heparin 25,000 UNIT/500 500 / 500 ML D5W 25,000 unit In 500 ml @ 14 UNIT/KG/HR 33. 964 mls/hr IVC .[id number] [facility] Rx#:[id number] Oral 100 / 100 Output: Urine 100 / 100 0 / 0 Other: Meal Dinner Percent of Meal Consumed 10% Stool Size Large Smear Stool Consistency loose loose Stool Color Brown Green Green # Voids 1 1 # Bowel Movements 1 1 Weight 116.31 kg Blood Glucose* 110 116 Patient Weight 02/24/17 23:59 Weight 116.31 kg - General physical appearance well developed, well nourished, no distress, no pain - Eyes PERRL, normal ocular movement - ENT atraumatic, normocephalic - Respiratory normal expansion, clear to auscultation - Cardiovascular Cardiovascular exam: Present: NR - Abdomen Abdomen: Present: bowel sounds present, soft - Integumentary other (ecchymosis of right arm, chest wall, abdomen, wound vac in place) - Musculoskeletal normal posture - Psychiatric oriented to time, memory intact - Labs 02/24/17 03:59 02/24/17 03:59 Diabetes panel 02/23/17 02/24/17 Range/Units 18:41 03:59 Sodium 137 135 L (136-145) mEq/L Potassium 4.6 H 4.7 H (3.5-4.5) mEq/L Chloride 105 104 (98-109) mEq/L Carbon Dioxide 25 25 (19-29) mEq/L BUN 23 22 (8-26) mg/dL Creatinine 1.27 H 1.29 H (0.72-1.25) mg/dL Glucose 105 H 108 H (70-99) mg/dL Calcium 9.2 9.2 (8.6-10.8) mg/dL Calcium panel 02/23/17 02/24/17 Range/Units 18:41 03:59 Calcium 9.2 9.2 (8.6-10.8) mg/dL Pituitary panel 02/23/17 02/24/17 Range/Units 18:41 03:59 Sodium 137 135 L (136-145) mEq/L Potassium 4.6 H 4.7 H (3.5-4.5) mEq/L Chloride 105 104 (98-109) mEq/L Carbon Dioxide 25 25 (19-29) mEq/L BUN 23 22 (8-26) mg/dL Creatinine 1.27 H 1.29 H (0.72-1.25) mg/dL Glucose 105 H 108 H (70-99) mg/dL Calcium 9.2 9.2 (8.6-10.8) mg/dL Adrenal panel 02/23/17 02/24/17 Range/Units 18:41 03:59 Sodium 137 135 L (136-145) mEq/L Potassium 4.6 H 4.7 H (3.5-4.5) mEq/L Chloride 105 104 (98-109) mEq/L Carbon Dioxide 25 25 (19-29) mEq/L BUN 23 22 (8-26) mg/dL Creatinine 1.27 H 1.29 H (0.72-1.25) mg/dL Glucose 105 H 108 H (70-99) mg/dL Calcium 9.2 9.2 (8.6-10.8) mg/dL - Attending Attestation I examined this patient and my medical decision-making was reviewed with the Resident Physician. I agree with the documented findings, disposition and treatment plan as described except to the extent set forth below.
[2017-02-22] MEDS: Heparin 25,000 UNIT/500 ML D5W 25,000 UNIT/500 ML MLS IVC SCH (13:23)
--- NOTE | 2017-02-22 14:51 | Internal Med Progress Note ---
Date of Encounter: 02/22/17 Time of Encounter: 13:50 - Assessment and plan (1) Acute blood loss anemia Current Visit: No Status: Acute Assessment and plan: So far he recieved 10 U PRBC and 4 U FFP- his Hb 7.9 and INR 1.1 s/p Hematoma evacuation - drainage of 1 lit blood so far stable Hb @ 9.0 cont close monitoring of Hb / Hct daily Wound vac + Cont Coumadin - bridging with Heparin gtt INR still sub therapeutic at 1.2 (2) Chest wall hematoma Current Visit: Yes Status: Acute Assessment and plan: cont close monitoring of Hb / Hct Q 12 hr no signs of infection..no need of abx now s/p Hematoma evacuation transfuse PRBC as needed Cont Coumadin and bridging with Heparin gtt OOB to chair .. Activity as tolerated PT / OT eval Qualifiers: Encounter type: subsequent encounter Laterality: right Qualified Code(s) : S20.211D - Contusion of right front wall of thorax, subsequent encounter (3) Non-Hodgkin lymphoma Current Visit: Yes Status: Acute Assessment and plan: reviewed recent biopsy results Heme Onc on board Qualifiers: Qualified Code(s): C85.90 - Non-Hodgkin lymphoma, unspecified, unspecified site (4) Acute kidney injury superimposed on chronic kidney disease Current Visit: Yes Status: Acute Assessment and plan: Improved..at his baseline @ 1.28 avoid nephro toxic meds cont close monitoring (5) History of mitral valve replacement Current Visit: Yes Status: Chronic Assessment and plan: Cont holding coumadin surgery cleared him to go on anticoagulation Started him on Coumadin bridging with Heparin (6) Schizophrenia Current Visit: No Status: Chronic Assessment and plan: resumed home meds Qualifiers: Schizophrenia type: unspecified Qualified Code(s): F20.9 - Schizophrenia, unspecified (7) Hypertension Current Visit: No Status: Chronic Assessment and plan: stable with home meds on hydralazine IV PRN too Qualifiers: Hypertension type: essential hypertension Qualified Code(s): I10 - Essential (primary) hypertension (8) Obstructive sleep apnea Current Visit: Yes Status: Chronic Assessment and plan: CPAP QHS - Subjective Interval history: Mr. Pace is a 76 year old male with history of mechanical mitral valve on anticoagulation, CKD, coronary artery disease, recently diagnosed lymphoma presents with right-sided chest wall pain. Patient presents after having a recent lymph node resection by Dr. Elena on 02/11/2017. Patient reports progressive pain, swelling, and bruising over the area. Patient was hospitalized in the [place] for this issue on 02/15/17 and initially his hemoglobin on presentation there was 9.8, rechecked this morning found it to be 6.3. The patient was transferred to our ER and a CT scan showed a large hematoma between the pectoralis major and pectoralis minor muscle. He was admitted here for acute anemia with large left chest wall hematoma. He received total 10 U PRBC and 4 U FFP. He did have hematoma evacuation done on 02/18/17. . Pt is alert, awake and O x 3 today. Pain is tolerable with medications. No events over night - Constitutional Vitals: Temp Pulse Resp BP Pulse Ox 98.7 F 80 18 141/81 94 02/22/17 11:01 02/22/17 11:01 02/22/17 11:01 02/22/17 11:01 02/22/17 11:01 General appearance: Present: A&O X 3, answers questions appropriately - Head Head exam: Present: atraumatic, normal inspection - Neck Neck exam general surgery: Present: supple - Respiratory Respiratory exam: Present: decreased breath sounds, wheezes. Absent: rales, respiratory distress, rhonchi - Cardiovascular Cardiovascular exam: Present: +S1, +S2, systolic murmur - GI/Abdominal GI/Abdominal exam: Present: normal bowel sounds, soft. Absent: rebound, rigid, tenderness - Extremities Exam Additional comments: Wound vac + over Rt lateral chest wall region Improved ecchymoses / swelling - Neurological Exam Neurological exam: Present: alert, oriented X3 - Psychiatric Psychiatric exam: Present: anxious Internal Medicine: Result - Labs CBC & Chem 7: 02/22/17 04:43 02/22/17 04:43 Labs: Short CBC 02/21/17 02/22/17 02/22/17 Range/Units 18:11 04:43 04:43 WBC 7.5 (4.3-11.1) K/mcL Hgb 9.2 L 9.1 L 9.0 L (12.9-16.9) g/dL Hct 27.6 L 27.7 L 27.5 L (37.5-50.1) % Plt Count 154 (140-400) K/mcL Neutrophils # 4.8 (1.6-8.9) K/mcL BMP 02/22/17 04:43 Sodium 136 Potassium 4.2 Chloride 104 Carbon Dioxide 25 BUN 27 H Creatinine 1.28 H Glucose 104 H Calcium 8.8 - ABG Interpretation ABG results: PT/INR, D-dimer PT 13.3 Seconds (9.4-12.1) H 02/22/17 04:43 - VTE Documentation of Mechanical Device: Intermittent pneumatic compression device Consult Discharge Plan - Plan Referrals: [facility],PCP [Primary Care Provider] - 02/26/17 10:00 am (THIS APPOINTMENT IS WITH THE [facility] TEAM )
[2017-02-22] MEDS: *HR* Warfarin 10 MG TABLET PO SCH (17:45)
[2017-02-22] MEDS: risperiDONE 1 MG TABLET PO SCH (21:15)
[2017-02-23] MEDS: *HR* HYDROmorphone (PF) 1 MG/ML SYRINGE IVP PRN ×2 (03:05→20:35)
[2017-02-23] MEDS: *HR* HYDROcodone/Acet 5/325 mg TABLET PO PRN (05:11)
[2017-02-23] MEDS: Heparin 25,000 UNIT/500 ML D5W 25,000 UNIT/500 ML MLS IVC SCH ×2 (07:13→21:15)
[2017-02-23] MEDS: Tiotropium 18 MCG inhalation IH SCH (08:30)
[2017-02-23] MEDS: Budesonide/Formoterol 160/4.5 MDI IH SCH ×2 (08:30→21:34)
[2017-02-23] MEDS: Fluticasone Propionate Nasal 50 MCG/SPRAY BOTTLE NS SCH ×2 (09:36→20:42)
--- NOTE | 2017-02-23 10:29 | Oncology Inp Progress Note ---
Date of Encounter: 02/23/17 Time of Encounter: 10:00 (1) Chest wall hematoma Current Visit: Yes Status: Acute Assessment and plan: Blood counts appear stable. He appears to have adequate hemostasis. Continue with anticoagulation per primary team. CBC, PT/INR are ordered for today and on coming days. Qualifiers: Encounter type: subsequent encounter Laterality: right Qualified Code(s) : S20.211D - Contusion of right front wall of thorax, subsequent encounter (2) Non-Hodgkin lymphoma Current Visit: Yes Status: Acute Assessment and plan: He has small lymphocytic lymphoma. There is no indication for treatment. He will follow-up with Dr. Crawford after discharge. Qualifiers: Qualified Code(s): C85.90 - Non-Hodgkin lymphoma, unspecified, unspecified site (3) Constipation Current Visit: Yes Status: Acute Assessment and plan: He is constipated. He is receiving Colace and MiraLAX scheduled. He did receive a dose of magnesium citrate yesterday. I will repeat his magnesium citrate increase his MiraLAX to twice a day Qualifiers: Qualified Code(s): K59.03 - Drug induced constipation Oncology: Subj Interval history: Mr. Rey Schultz continues to recover from his right axillary hematoma. He continues to have pain in that right axillary region this pain is currently controlled with his current regimen. He was noted next step will be following discharge. He is in laboratory to and from the bathroom. He is constipated. He denies any other bleeding symptoms of epistaxis, hemoptysis, hematemesis, melena or hematochezia. He continues on heparin as well as warfarin. Labs from this morning are pending but hemoglobin appears stable last 48 hours - Constitutional Vitals: Vital Signs Temp Pulse Resp BP Pulse Ox 02/23/17 08:00 97.9 F 61 18 125/79 96 02/23/17 04:36 98.3 F 77 16 152/74 96 02/22/17 20:12 18 96 02/22/17 19:39 98.9 F 71 16 138/75 94 02/22/17 15:45 99.1 F 77 20 160/81 95 02/22/17 11:01 98.7 F 80 18 141/81 94 Intake and Output 02/23/17 02/23/17 02/23/17 00:59 08:59 16:59 Intake Total 195 / 195 305 / 305 120 / 120 Output Total 300 / 300 515 / 515 Balance -105 / -105 -210 / -210 120 / 120 Intake: IV Fluids 195 / 195 305 / 305 Heparin 25,000 UNIT/500 195 / 195 305 / 305 ML D5W 25,000 unit In 500 ml @ 14 UNIT/KG/HR 33. 964 mls/hr IVC .[id number] [facility] Rx#:[id number] Oral 0 / 0 0 / 0 120 / 120 Output: Urine 300 / 300 425 / 425 Wound Drainage 0 / 0 90 / 90 Right Chest 0 / 0 90 / 90 Other: Meal Breakfast Percent of Meal Consumed 20% Weight 116.4 kg Blood Glucose* 128 108 Patient Weight 02/24/17 00:59 Weight 116.4 kg - Head Head exam: Present: atraumatic, normal inspection, normocephalic - Eye Eye exam: Present: normal appearance, conjuntiva pink, sclera anicteric - ENT ENT exam: Present: mucous membranes moist, normal exam, normal oropharynx - Neck Neck exam: Present: full ROM, normal inspection - Respiratory Respiratory exam: Present: decreased breath sounds - Cardiovascular Cardiovascular exam: Present: RRR - GI/Abdominal GI/Abdominal exam: Present: soft, tenderness - Extremities Exam Extremities exam: Present: full ROM Additional comments: Edema R>L hand and arm - Expanded Skin Exam Type of lesion: Present: rash (Extensive ecchymosis about right axilla that tracks to right anterior abdomen) Oncology: Obj Data - Labs CBC & Chem 7: 02/22/17 04:43 02/22/17 04:43 Labs: Laboratory Results - last 24 hr 02/22/17 02/22/17 02/22/17 11:00 11:16 15:59 APTT 75.8 H POC Glucose 120 H 117 H 02/22/17 18:26 APTT 68.8 H POC Glucose - ABG Interpretation ABG results: PT/INR, D-dimer PT 13.3 Seconds (9.4-12.1) H 02/22/17 04:43 Consult Discharge Plan - Plan [facility]errals: [facility] [Primary Care Provider] - 02/26/17 10:00 am (THIS APPOINTMENT IS WITH THE [facility] TEAM )
[2017-02-23] MEDS: Simethicone 80 MG TAB.CHEW PO PRN (13:02)
[2017-02-23] MEDS: Ondansetron 4 MG/2 ML VIAL IVP PRN (13:02)
--- NOTE | 2017-02-23 14:59 | General Surgery Progress Note ---
Date of Encounter: 02/23/17 Time of Encounter: 10:00 - Assessment and Plan (1) Chest wall hematoma Current Visit: Yes Status: Acute Post-operative day #5 right axilla and chest wall hematoma evacuation by Dr. Elena. The patient's pain is improved and ecchymosis is within same margins as yesterday. Wound vac is draining well with 100ml of drainage. Continue supportive and pain management. Discharge plan remains the same as yesterday[facility] g[facility]. Continue to monitor INR. No labs were done this a.m. despite being ordered yesterday. Qualifiers: Encounter type: subsequent encounter Laterality: right Qualified Code(s) : S20.211D - Contusion of right front wall of thorax, subsequent encounter (2) Anemia Current Visit: Yes Status: Acute Anemia is likely due to acute blood loss. Monitor for any new or ongoing bleeding. Transfuse as necessary Qualifiers: Anemia type: unspecified type Qualified Code(s): D64.9 - Anemia, unspecified (3) History of mitral valve replacement Current Visit: Yes Status: Chronic Continue Heparin bridge to coumadin (started 02/19/17) Continue to monitor INR (4) Schizophrenia Current Visit: No Status: Chronic Qualifiers: Schizophrenia type: unspecified Qualified Code(s): F20.9 - Schizophrenia, unspecified (5) DVT prophylaxis Current Visit: No Status: Acute Continue Heparin for DVT prophylaxis (6) Voiding difficulty Current Visit: Yes Status: Acute Patient has difficulty voiding. Ordered bladder scan and start Flomax 0.4mg PO daily Strict I/Os Subjective Patient reports: no new complaints, flatus, bowel movement, nausea, afebrile, other (patient is having difficulty voiding) Objective Vital Signs - Last 8 Hours Temp Pulse Resp BP Pulse Ox 02/23/17 11:41 98.1 F 78 18 148/81 99 02/23/17 08:30 16 97 02/23/17 08:00 97.9 F 61 18 125/79 96 Intake and Output 02/22/17 02/23/17 02/23/17 23:59 07:59 15:59 Intake Total 195 / 195 305 / 305 720 / 720 Output Total 300 / 300 90 / 90 925 / 925 Balance -105 / -105 215 / 215 -205 / -205 Intake: IV Fluids 195 / 195 305 / 305 Heparin 25,000 UNIT/500 195 / 195 305 / 305 ML D5W 25,000 unit In 500 ml @ 14 UNIT/KG/HR 33. 964 mls/hr IVC .[id number] [facility] Rx#:[id number] Oral 0 / 0 0 / 0 720 / 720 Output: Urine 300 / 300 0 / 0 925 / 925 Wound Drainage 0 / 0 90 / 90 Right Chest 0 / 0 90 / 90 Other: Meal Lunch Percent of Meal Consumed 10% Weight 116.4 kg Blood Glucose* 128 105 Patient Weight 02/23/17 23:59 Weight 116.4 kg - General physical appearance well developed, well nourished, no distress - Eyes normal ocular movement - ENT atraumatic, normocephalic, CN 2-12 grossly intact - Neck Neck exam: trachea midline - Respiratory normal expansion, clear to auscultation - Cardiovascular Cardiovascular exam: Present: NR, irregular rhythm, no murmurs/rubs/gallops - Abdomen Abdomen: Present: bowel sounds present, soft, tender (associated with areas of ecchymosis ), wound (Wound vac placed at right chest and is draining well with 100ml of drainage) - Psychiatric memory intact, other (flat affect) - Labs 02/22/17 04:43 02/22/17 04:43 - VTE Documentation of Mechanical Device: Intermittent pneumatic compression device Consult Discharge Plan - Plan [facility] Provider[facility] - 02/26/17 10:00 am (THIS APPOINTMENT IS WITH THE [facility] TEAM )
--- NOTE | 2017-02-23 16:17 | Internal Med Progress Note ---
Date of Encounter: 02/23/17 Time of Encounter: 16:15 - Assessment and plan (1) Acute blood loss anemia Current Visit: No Status: Acute Assessment and plan: So far he recieved 10 U PRBC and 4 U FFP- his Hb 7.9 and INR 1.1 s/p Hematoma evacuation - drainage of 1 lit blood so far stable Hb @ 9.0 cont close monitoring of Hb / Hct daily Wound vac + Cont Coumadin - bridging with Heparin gtt INR still sub therapeutic at 1.2 Once INR becomes therapeutic [facility] (2) Chest wall hematoma Current Visit: Yes Status: Acute Assessment and plan: cont close monitoring of Hb / Hct Q 12 hr no signs of infection..no need of abx now s/p Hematoma evacuation transfuse PRBC as needed Cont Coumadin and bridging with Heparin gtt OOB to chair .. Activity as tolerated PT / OT eval Qualifiers: Encounter type: subsequent encounter Laterality: right Qualified Code(s) : S20.211D - Contusion of right front wall of thorax, subsequent encounter (3) Non-Hodgkin lymphoma Current Visit: Yes Status: Acute Assessment and plan: reviewed recent biopsy results Heme Onc on board Qualifiers: Qualified Code(s): C85.90 - Non-Hodgkin lymphoma, unspecified, unspecified site (4) Acute kidney injury superimposed on chronic kidney disease Current Visit: Yes Status: Acute Assessment and plan: Improved..at his baseline @ 1.28 avoid nephro toxic meds cont close monitoring (5) History of mitral valve replacement Current Visit: Yes Status: Chronic Assessment and plan: Cont holding coumadin surgery cleared him to go on anticoagulation Started him on Coumadin bridging with Heparin (6) Schizophrenia Current Visit: No Status: Chronic Assessment and plan: resumed home meds Qualifiers: Schizophrenia type: unspecified Qualified Code(s): F20.9 - Schizophrenia, unspecified (7) Hypertension Current Visit: No Status: Chronic Assessment and plan: stable with home meds on hydralazine IV PRN too Qualifiers: Hypertension type: essential hypertension Qualified Code(s): I10 - Essential (primary) hypertension (8) Obstructive sleep apnea Current Visit: Yes Status: Chronic Assessment and plan: CPAP QHS - Subjective Interval history: Mr. Pace is a 76 year old male with history of mechanical mitral valve on anticoagulation, CKD, coronary artery disease, recently diagnosed lymphoma presents with right-sided chest wall pain. Patient presents after having a recent lymph node resection by Dr. Elena on 02/11/2017. Patient reports progressive pain, swelling, and bruising over the area. Patient was hospitalized in the [place] for this issue on 02/15/17 and initially his hemoglobin on presentation there was 9.8, rechecked this morning found it to be 6.3. The patient was transferred to our ER and a CT scan showed a large hematoma between the pectoralis major and pectoralis minor muscle. He was admitted here for acute anemia with large left chest wall hematoma. He received total 10 U PRBC and 4 U FFP. He did have hematoma evacuation done on 02/18/17. . Pt is alert, awake and O x 3 today. Pain is tolerable with medications. No events over night - Constitutional Vitals: Temp Pulse Resp BP Pulse Ox 98.3 F 91 18 134/75 94 02/23/17 15:00 02/23/17 15:00 02/23/17 15:00 02/23/17 15:00 02/23/17 15:00 General appearance: Present: A&O X 3, answers questions appropriately - Head Head exam: Present: atraumatic, normal inspection - Respiratory Respiratory exam: Present: decreased breath sounds, wheezes. Absent: rales, respiratory distress, rhonchi - Cardiovascular Cardiovascular exam: Present: RRR, +S1, +S2, systolic murmur - GI/Abdominal GI/Abdominal exam: Present: normal bowel sounds, soft. Absent: rebound, rigid, tenderness - Extremities Exam Extremities exam: Absent: calf tenderness, pedal edema, tenderness Additional comments: improved ecchymosis and swelling Rt chest wall region - Psychiatric Psychiatric exam: Present: anxious Internal Medicine: Result - Labs CBC & Chem 7: 02/22/17 04:43 02/22/17 04:43 - ABG Interpretation ABG results: PT/INR, D-dimer PT 13.3 Seconds (9.4-12.1) H 02/22/17 04:43 - VTE Documentation of Mechanical Device: Intermittent pneumatic compression device Consult Discharge Plan - Plan Referrals: [place],PCP [Primary Care Provider] - 02/26/17 10:00 am (THIS APPOINTMENT IS WITH THE [facility] TEAM )
[2017-02-23] MEDS ORDERED: *HR* Warfarin 7.5 MG TABLET PO SCH (18:00)
[2017-02-23 18:52] LABS: Basophils % 0.5 %; Eosinophils # 0.3 K/mcL (0.0-0.6); Eosinophils % 3.2 %; Hematocrit 30.1 % (37.5-50.1); Hemoglobin 9.5 g/dL (12.9-16.9); Immature Granulocytes % 1.8 % (0-4); Lymphocytes # 0.9 K/mcL (0.6-4.6); Lymphocytes % 11.5 %; Mean Corpuscular HGB Conc 31.6 g/dL (31.6-35.5); Mean Corpuscular Hemoglobin 29.1 pg (28.0-33.3); Mean Corpuscular Volume 92.3 fL (83.0-100.0); Mean Platelet Volume 10.4 fL (9.4-12.4); Monocytes # 1.1 K/mcL (0.0-1.3); Monocytes % 13.4 %; Neutrophils # 5.5 K/mcL (1.6-8.9); Platelet Count 184 K/mcL (140-400); Red Blood Count 3.26 M/mcL (4.19-5.50); Red Cell Distribution Width 16.2 % (11.5-14.5); Segmented Neutrophils % 69.6 %
[2017-02-23 18:59] LABS: INR 1.5; Prothrombin Time 15.8 Seconds (9.4-12.1)
[2017-02-23 19:01] LABS: Activated Partial Thrombo Time 78.7 Seconds (26.0-36.0)
[2017-02-23 19:02] LABS: BUN/Creatinine Ratio 18 (6-26); Blood Urea Nitrogen 23 mg/dL (8-26); Calcium 9.2 mg/dL (8.6-10.8); Carbon Dioxide 25 mEq/L (19-29); Chloride 105 mEq/L (98-109); Glucose 105 mg/dL (70-99); Osmolality,Calculated 288 (280-300); Potassium 4.6 mEq/L (3.5-4.5); eGFR For African Americans > 60 (> 60); eGFR For Non-African Americans 55 (> 60)
[2017-02-23 19:04] LABS: Sodium 137 mEq/L (136-145)
[2017-02-23] MEDS: risperiDONE 1 MG TABLET PO SCH (20:37)
[2017-02-24] MEDS: *HR* HYDROmorphone (PF) 1 MG/ML SYRINGE IVP PRN (01:27)
[2017-02-24 04:18] LABS: Basophils % 0.5 %; Eosinophils # 0.4 K/mcL (0.0-0.6); Eosinophils % 4.6 %; Hematocrit 30.9 % (37.5-50.1); Hemoglobin 9.8 g/dL (12.9-16.9); Immature Granulocytes % 2.8 % (0-4); Lymphocytes % 13.7 %; Mean Corpuscular HGB Conc 31.7 g/dL (31.6-35.5); Mean Corpuscular Hemoglobin 29.3 pg (28.0-33.3); Mean Corpuscular Volume 92.2 fL (83.0-100.0); Mean Platelet Volume 10.8 fL (9.4-12.4); Platelet Count 172 K/mcL (140-400); Red Blood Count 3.35 M/mcL (4.19-5.50); Red Cell Distribution Width 16.7 % (11.5-14.5); Segmented Neutrophils % 65.4 %
[2017-02-24 04:24] LABS: INR 1.6; Prothrombin Time 17.4 Seconds (9.4-12.1)
[2017-02-24 04:34] LABS: BUN/Creatinine Ratio 17 (6-26); Blood Urea Nitrogen 22 mg/dL (8-26); Calcium 9.2 mg/dL (8.6-10.8); Carbon Dioxide 25 mEq/L (19-29); Chloride 104 mEq/L (98-109); Glucose 108 mg/dL (70-99); Osmolality,Calculated 284 (280-300); Potassium 4.7 mEq/L (3.5-4.5); Sodium 135 mEq/L (136-145); eGFR For African Americans > 60 (> 60); eGFR For Non-African Americans 54 (> 60)
[2017-02-24] MEDS: Fluticasone Propionate Nasal 50 MCG/SPRAY BOTTLE NS SCH ×2 (09:34→20:44)
[2017-02-24] MEDS: *HR* HYDROcodone/Acet 5/325 mg TABLET PO PRN ×2 (09:35→16:07)
[2017-02-24] MEDS: Budesonide/Formoterol 160/4.5 MDI IH SCH ×2 (11:03→22:46)
[2017-02-24] MEDS: Tiotropium 18 MCG inhalation IH SCH (11:04)
--- NOTE | 2017-02-24 11:48 | General Surgery Progress Note ---
Date of Encounter: 02/24/17 Time of Encounter: 09:10 - Assessment and Plan (1) Chest wall hematoma Current Visit: Yes Status: Acute Post-operative day #6 right axilla and chest wall hematoma evacuation by Dr. Elena. The patient has decreased ecchymosis of right arm and chest wall. We will continue to monitor improvement of margins. Wound vac is draining well with 100ml of drainage. Continue supportive and pain management. Discharge planning to CT pending for INR improvement. Subtherapeutic INR is uptrending (1.6<1.5<1.2) Once INR becames therapeutic (2.5-3.5), will discharge him to [facility] E[facility] Qualifiers: Encounter type: subsequent encounter Laterality: right Qualified Code(s) : S20.211D - Contusion of right front wall of thorax, subsequent encounter (2) Anemia Current Visit: Yes Status: Acute Anemia is likely due to acute blood loss. Hemoglobin stable (9.8<9.5<9.0) So far, he has received 10 U PRBC and 4 U FFP on 02/18/17 for Hb of 6.8 Monitor for any new or ongoing bleeding. Transfuse as necessary Qualifiers: Anemia type: unspecified type Qualified Code(s): D64.9 - Anemia, unspecified (3) History of mitral valve replacement Current Visit: Yes Status: Chronic Continue Heparin bridge to coumadin (started 02/19/17) Subtherapeutic INR is uptrending (1.6<1.5<1.2) (4) Schizophrenia Current Visit: No Status: Chronic Continue home med Risperdal 1 mg PO daily Qualifiers: Schizophrenia type: unspecified Qualified Code(s): F20.9 - Schizophrenia, unspecified (5) DVT prophylaxis Current Visit: No Status: Acute Continue Heparin for DVT prophylaxis (6) Voiding difficulty Current Visit: Yes Status: Acute Currently resolved with Flowmax 0.4 mg PO daily. Continue medication Subjective Patient reports: no new complaints, feels better, voiding w/o difficulty ( Patient's voiding difficulty has improved ), flatus, bowel movement, afebrile Objective Vital Signs - Last 8 Hours Temp Pulse Resp BP Pulse Ox 02/24/17 11:14 16 97 02/24/17 07:51 97.9 F 76 16 128/70 95 02/24/17 04:03 97.9 F 86 14 127/79 96 Intake and Output 02/23/17 02/24/17 02/24/17 23:59 07:59 15:59 Intake Total 600 / 600 120 / 120 Output Total 100 / 100 0 / 0 Balance 500 / 500 0 / 0 120 / 120 Intake: IV Fluids 500 / 500 Heparin 25,000 UNIT/500 500 / 500 ML D5W 25,000 unit In 500 ml @ 14 UNIT/KG/HR 33. 964 mls/hr IVC .[id number] [facility]END[facility] Rx#:[id number] Oral 100 / 100 120 / 120 Output: Urine 100 / 100 0 / 0 Other: Meal Dinner Breakfast Percent of Meal Consumed 10% 40% Stool Size Large Smear Stool Consistency loose loose Stool Color Brown Green Green # Voids 1 1 # Bowel Movements 1 1 Weight 116.31 kg Blood Glucose* 110 116 Patient Weight 02/24/17 23:59 Weight 116.31 kg - General physical appearance well developed, well nourished, obese - Eyes normal ocular movement - ENT atraumatic, normocephalic, CN 2-12 grossly intact - Neck Neck exam: trachea midline - Cardiovascular Cardiovascular exam: Present: RRR, no murmurs/rubs/gallops - Abdomen Abdomen: Present: bowel sounds present, soft, tender (associated with areas of ecchymosis), wound (wound vac draining well with approximately 100ml of drainage ) - Integumentary other (decreased ecchymosis in the right axilla, anterior chest and abdomen when compared to yesterday) - Psychiatric oriented to time, oriented to person, oriented to place, memory intact - Labs 02/24/17 03:59 02/24/17 03:59 Diabetes panel 02/23/17 02/24/17 Range/Units 18:41 03:59 Sodium 137 135 L (136-145) mEq/L Potassium 4.6 H 4.7 H (3.5-4.5) mEq/L Chloride 105 104 (98-109) mEq/L Carbon Dioxide 25 25 (19-29) mEq/L BUN 23 22 (8-26) mg/dL Creatinine 1.27 H 1.29 H (0.72-1.25) mg/dL Glucose 105 H 108 H (70-99) mg/dL Calcium 9.2 9.2 (8.6-10.8) mg/dL Calcium panel 02/23/17 02/24/17 Range/Units 18:41 03:59 Calcium 9.2 9.2 (8.6-10.8) mg/dL Pituitary panel 02/23/17 02/24/17 Range/Units 18:41 03:59 Sodium 137 135 L (136-145) mEq/L Potassium 4.6 H 4.7 H (3.5-4.5) mEq/L Chloride 105 104 (98-109) mEq/L Carbon Dioxide 25 25 (19-29) mEq/L BUN 23 22 (8-26) mg/dL Creatinine 1.27 H 1.29 H (0.72-1.25) mg/dL Glucose 105 H 108 H (70-99) mg/dL Calcium 9.2 9.2 (8.6-10.8) mg/dL Adrenal panel 02/23/17 02/24/17 Range/Units 18:41 03:59 Sodium 137 135 L (136-145) mEq/L Potassium 4.6 H 4.7 H (3.5-4.5) mEq/L Chloride 105 104 (98-109) mEq/L Carbon Dioxide 25 25 (19-29) mEq/L BUN 23 22 (8-26) mg/dL Creatinine 1.27 H 1.29 H (0.72-1.25) mg/dL Glucose 105 H 108 H (70-99) mg/dL Calcium 9.2 9.2 (8.6-10.8) mg/dL - VTE Documentation of Mechanical Device: Intermittent pneumatic compression device Consult Discharge Plan - Plan [facility]: [facility] [Primary Care Provider[facility] - 02/26/17 10:00 am (THIS APPOINTMENT IS WITH THE [facility] TEAM )
[2017-02-24] MEDS: Heparin 25,000 UNIT/500 ML D5W 25,000 UNIT/500 ML MLS IVC SCH (14:14)
--- NOTE | 2017-02-24 16:01 | Internal Med Progress Note ---
Date of Encounter: 02/24/17 Time of Encounter: 15:30 - Assessment and plan (1) Acute blood loss anemia Current Visit: No Status: Acute Assessment and plan: So far he received 10 U PRBC and 4 U FFP- his Hb 7.9 and INR 1.1 s/p Hematoma evacuation - drainage of 1 lit blood so far stable Hb @ 9.0 cont close monitoring of Hb / Hct daily Wound vac + Cont Coumadin - bridging with Heparin gtt INR still sub therapeutic at 1.6 Once INR becomes therapeutic [facility] (2) Chest wall hematoma Current Visit: Yes Status: Acute Assessment and plan: cont close monitoring of Hb / Hct Q 12 hr no signs of infection..no need of abx now s/p Hematoma evacuation transfuse PRBC as needed Cont Coumadin and bridging with Heparin gtt OOB to chair .. Activity as tolerated PT / OT eval Qualifiers: Encounter type: subsequent encounter Laterality: right Qualified Code(s) : S20.211D - Contusion of right front wall of thorax, subsequent encounter (3) Non-Hodgkin lymphoma Current Visit: Yes Status: Acute Assessment and plan: reviewed recent biopsy results Heme Onc on board Qualifiers: Qualified Code(s): C85.90 - Non-Hodgkin lymphoma, unspecified, unspecified site (4) Acute kidney injury superimposed on chronic kidney disease Current Visit: Yes Status: Acute Assessment and plan: Improved..at his baseline @ 1.28 avoid nephro toxic meds cont close monitoring (5) History of mitral valve replacement Current Visit: Yes Status: Chronic Assessment and plan: Cont holding coumadin surgery cleared him to go on anticoagulation Started him on Coumadin bridging with Heparin (6) Schizophrenia Current Visit: No Status: Chronic Assessment and plan: resumed home meds Qualifiers: Schizophrenia type: unspecified Qualified Code(s): F20.9 - Schizophrenia, unspecified (7) Hypertension Current Visit: No Status: Chronic Assessment and plan: stable with home meds on hydralazine IV PRN too Qualifiers: Hypertension type: essential hypertension Qualified Code(s): I10 - Essential (primary) hypertension (8) Obstructive sleep apnea Current Visit: Yes Status: Chronic Assessment and plan: CPAP QHS - Subjective Interval history: Mr. Pace is a 76 year old male with history of mechanical mitral valve on anticoagulation, CKD, coronary artery disease, recently diagnosed lymphoma presents with right-sided chest wall pain. Patient presents after having a recent lymph node resection by Dr. Elena on 02/11/2017. Patient reports progressive pain, swelling, and bruising over the area. Patient was hospitalized in the [place] for this issue on 02/15/17 and initially his hemoglobin on presentation there was 9.8, rechecked this morning found it to be 6.3. The patient was transferred to our ER and a CT scan showed a large hematoma between the pectoralis major and pectoralis minor muscle. He was admitted here for acute anemia with large left chest wall hematoma. He received total 10 U PRBC and 4 U FFP. He did have hematoma evacuation done on 02/18/17. . Pt is alert, awake and O x 3 today. Pain is tolerable with medications. No events over night - Constitutional Vitals: Temp Pulse Resp BP Pulse Ox 98.1 F 70 16 145/63 94 02/24/17 12:20 02/24/17 12:20 02/24/17 12:20 02/24/17 12:20 02/24/17 12:20 General appearance: Present: A&O X 3, answers questions appropriately - Head Head exam: Present: atraumatic, normal inspection - Respiratory Respiratory exam: Present: decreased breath sounds, wheezes. Absent: rales, respiratory distress, rhonchi - Cardiovascular Cardiovascular exam: Present: RRR, +S1, +S2, systolic murmur - GI/Abdominal GI/Abdominal exam: Present: normal bowel sounds, soft. Absent: rebound, rigid, tenderness - Extremities Exam Extremities exam: Absent: calf tenderness, pedal edema, tenderness Additional comments: wound vac + Rt lateral chest wall - Psychiatric Psychiatric exam: Present: normal affect Internal Medicine: Result - Labs CBC & Chem 7: 02/24/17 03:59 02/24/17 03:59 Labs: Short CBC 02/23/17 02/24/17 Range/Units 18:41 03:59 WBC 7.9 7.6 (4.3-11.1) K/mcL Hgb 9.5 L 9.8 L (12.9-16.9) g/dL Hct 30.1 L 30.9 L (37.5-50.1) % Plt Count 184 172 (140-400) K/mcL Neutrophils # 5.5 5.0 (1.6-8.9) K/mcL BMP 02/23/17 02/24/17 18:41 03:59 Sodium 137 135 L Potassium 4.6 H 4.7 H Chloride 105 104 Carbon Dioxide 25 25 BUN 23 22 Creatinine 1.27 H 1.29 H Glucose 105 H 108 H Calcium 9.2 9.2 - ABG Interpretation ABG results: PT/INR, D-dimer PT 17.4 Seconds (9.4-12.1) H 02/24/17 03:59 - VTE Documentation of Mechanical Device: Intermittent pneumatic compression device Consult Discharge Plan - Plan [facility]: [facility] [Primary Care Provider[facility] - 02/26/17 10:00 am (THIS APPOINTMENT IS WITH THE [facility] TEAM )
[2017-02-24] MEDS: *HR* Warfarin 10 MG TABLET PO SCH (18:29)
[2017-02-24 18:50] LABS: Activated Partial Thrombo Time 155.5 Seconds (26.0-36.0)
[2017-02-24 19:08] LABS: Heparin anti-factor XA UFH 0.63 IU/mL (0.30-0.70)
[2017-02-24] MEDS: Ondansetron 4 MG/2 ML VIAL IVP PRN (19:25)
[2017-02-24] MEDS: risperiDONE 1 MG TABLET PO SCH (20:43)
[2017-02-25] MEDS: Heparin 25,000 UNIT/500 ML D5W 25,000 UNIT/500 ML MLS IVC SCH ×2 (00:56→14:08)
[2017-02-25 06:03] LABS: INR 1.9; Prothrombin Time 20.4 Seconds (9.4-12.1)
[2017-02-25 06:06] LABS: Activated Partial Thrombo Time 72.2 Seconds (26.0-36.0)
[2017-02-25 06:17] LABS: Basophils % 0.6 %; Eosinophils # 0.3 K/mcL (0.0-0.6); Eosinophils % 4.3 %; Hematocrit 29.8 % (37.5-50.1); Hemoglobin 9.4 g/dL (12.9-16.9); Immature Granulocytes % 1.7 % (0-4); Lymphocytes # 0.8 K/mcL (0.6-4.6); Lymphocytes % 11.8 %; Mean Corpuscular HGB Conc 31.5 g/dL (31.6-35.5); Mean Corpuscular Hemoglobin 28.7 pg (28.0-33.3); Mean Corpuscular Volume 91.1 fL (83.0-100.0); Mean Platelet Volume 10.2 fL (9.4-12.4); Monocytes # 0.9 K/mcL (0.0-1.3); Monocytes % 12.9 %; Neutrophils # 4.8 K/mcL (1.6-8.9); Platelet Count 176 K/mcL (140-400); Red Blood Count 3.27 M/mcL (4.19-5.50); Red Cell Distribution Width 16.6 % (11.5-14.5); Segmented Neutrophils % 68.7 %
[2017-02-25] MEDS: Budesonide/Formoterol 160/4.5 MDI IH SCH ×2 (07:14→22:42)
[2017-02-25] MEDS: Tiotropium 18 MCG inhalation IH SCH (07:16)
--- NOTE | 2017-02-25 08:16 | General Surgery Progress Note ---
<Herberth Toure - Last Filed: 02/25/17 16:38> Date of Encounter: 02/25/17 Time of Encounter: 07:15 - Assessment and Plan (1) Chest wall hematoma Current Visit: Yes Status: Acute POD #7 Evacuation right axilla and chest wall hematoma by Dr. Elena Supportive care, pain management Stable areas of ecchymosis, we will continue to monitor Wound vac placed, changed today [place] requires that INR be therapeutic - currently 1.9, goal of 2.5 to 3.5. Will monitor closely [place] wound care nurse and physician are to manage the wound vac when he arrives Qualifiers: Encounter type: subsequent encounter Laterality: right Qualified Code(s) : S20.211D - Contusion of right front wall of thorax, subsequent encounter (2) Acute blood loss anemia Current Visit: No Status: Acute Follow Hgb Last 9.4 - asymptomatic Transfuse as necessary Monitor for new or ongoing bleeding (3) History of mitral valve replacement Current Visit: Yes Status: Chronic Continue heparin bridge to coumadin (started 02/19/17) Follow INR (last 1.9) (4) Schizophrenia Current Visit: No Status: Chronic Stable Continue home medication Qualifiers: Schizophrenia type: unspecified Qualified Code(s): F20.9 - Schizophrenia, unspecified Subjective Patient reports: no new complaints, still having pain, pain is less, tolerating a regular diet, voiding w/o difficulty, afebrile Objective Vital Signs - Last 8 Hours Temp Pulse Resp BP Pulse Ox 02/25/17 07:14 16 93 02/25/17 07:03 98.6 F 78 18 148/81 95 02/25/17 03:59 98.3 F 81 19 134/78 96 Intake and Output 02/24/17 02/25/17 02/25/17 23:59 07:59 15:59 Intake Total 140 / 140 145 / 145 Output Total 1650 / 1650 1000 / 1000 Balance -1510 / -1510 -855 / -855 Intake: IV Fluids 140 / 140 145 / 145 Heparin 25,000 UNIT/500 140 / 140 145 / 145 ML D5W 25,000 unit In 500 ml @ 14 UNIT/KG/HR 33. 964 mls/hr IVC .[id number] [facility] Rx#:[id number] Oral 0 / 0 Output: Urine 1650 / 1650 1000 / 1000 Other: Meal Dinner Percent of Meal Consumed 75% # Voids 2 Weight 112.8 kg Blood Glucose* 157 118 Patient Weight 02/25/17 23:59 Weight 112.8 kg - General physical appearance well developed, well nourished, no distress - Eyes normal ocular movement - ENT atraumatic, normocephalic - Neck Neck exam: trachea midline - Respiratory normal expansion, normal respiratory effort, clear to auscultation - Cardiovascular Cardiovascular exam: Present: RRR - Abdomen Abdomen: Present: bowel sounds present, soft, tender (associated with area of ecchymosis) - Integumentary other (stable area of ecchymosis on the anterior chest, abdomen, and right axilla) - Labs 02/25/17 05:22 02/24/17 03:59 - VTE Documentation of Mechanical Device: Intermittent pneumatic compression device Consult Discharge Plan - Plan [facility]errals: [facility] [Primary Care Provider] - 02/26/17 10:00 am (THIS APPOINTMENT IS WITH THE [facility] TEAM ) <Donna Elena - Last Filed: 02/26/17 08:39> Date of Encounter: 02/25/17 Time of Encounter: 18:00 - Assessment and Plan (1) Elevated risk of hemorrhage due to anticoagulant therapy Current Visit: Yes Status: Acute (2) Anticoagulated Current Visit: Yes Status: Chronic continue heparin gtt until therapeutic on coumadin (3) Chest wall hematoma Current Visit: Yes Status: Acute wound vac changes M, W, F Hb stable Qualifiers: Encounter type: subsequent encounter Laterality: right Qualified Code(s) : S20.211D - Contusion of right front wall of thorax, subsequent encounter (4) Lymphoma Current Visit: No Status: Acute Qualifiers: Lymphoma type: non-Hodgkin Non-Hodgkin lymphoma type: other specified type Lymphoma site: axillary Qualified Code(s): C85.84 - Other specified types of non-Hodgkin lymphoma, lymph nodes of axilla and upper limb Subjective Patient reports: still having pain, pain is less, tolerating a regular diet, flatus, bowel movement Objective Vital Signs - Last 8 Hours Temp Pulse Resp BP Pulse Ox 02/26/17 07:13 97.6 F 69 16 136/84 97 02/26/17 03:16 98.3 F 82 16 122/64 98 Intake and Output 02/25/17 02/26/17 02/26/17 23:59 07:59 15:59 Intake Total 480 / 480 0 / 0 Output Total 270 / 270 1275 / 1275 Balance 210 / 210 -1275 / -1275 Intake: Oral 480 / 480 0 / 0 Output: Urine 250 / 250 1275 / 1275 Wound Drainage 20 / 20 0 / 0 Right Chest 20 / 20 0 / 0 Other: Meal Dinner Percent of Meal Consumed 100% # Voids 1 Weight 111.4 kg Blood Glucose* 115 Patient Weight 02/26/17 23:59 Weight 111.4 kg - General physical appearance well developed, well nourished, no distress - Eyes PERRL, normal ocular movement - ENT atraumatic, normocephalic - Neck Neck exam: trachea midline - Respiratory normal expansion, clear to auscultation - Cardiovascular Cardiovascular exam: Present: RRR - Abdomen Abdomen: Present: bowel sounds present, soft, tender - Integumentary other - Neurologic CN 2-12 grossly intact - Musculoskeletal normal posture - Psychiatric oriented to time, memory intact - Labs 02/26/17 07:37 02/24/17 03:59 - Attending Attestation I examined this patient and my medical decision-making was reviewed with the Resident Physician. I agree with the documented findings, disposition and treatment plan as described except to the extent set forth below.
[2017-02-25] MEDS: Fluticasone Propionate Nasal 50 MCG/SPRAY BOTTLE NS SCH ×2 (08:59→20:55)
--- NOTE | 2017-02-25 14:41 | Internal Med Progress Note ---
Date of Encounter: 02/25/17 Time of Encounter: 14:39 - Assessment and plan (1) Acute blood loss anemia Current Visit: No Status: Acute Assessment and plan: Improved. stable Hb. So far he received 10 U PRBC and 4 U FFP- his Hb 7.9 and INR 1.1 s/p Hematoma evacuation - drainage of 1 lit blood Wound vac + Cont Coumadin - bridging with Heparin gtt INR still sub therapeutic at 1.9 Once INR becomes therapeutic@ 2.5 [facility] (2) Chest wall hematoma Current Visit: Yes Status: Acute Assessment and plan: s/p Hematoma evacuation transfuse PRBC as needed Cont Coumadin and bridging with Heparin gtt OOB to chair .. Activity as tolerated PT / OT eval Qualifiers: Encounter type: subsequent encounter Laterality: right Qualified Code(s) : S20.211D - Contusion of right front wall of thorax, subsequent encounter (3) Non-Hodgkin lymphoma Current Visit: Yes Status: Acute Assessment and plan: reviewed recent biopsy results Heme Onc recommend to f/u with them as an out pt to discuss about treatment options Qualifiers: Qualified Code(s): C85.90 - Non-Hodgkin lymphoma, unspecified, unspecified site (4) Acute kidney injury superimposed on chronic kidney disease Current Visit: Yes Status: Acute Assessment and plan: Improved..at his baseline @ 1.28 avoid nephro toxic meds cont close monitoring (5) History of mitral valve replacement Current Visit: Yes Status: Chronic Assessment and plan: on Coumadin bridging with Heparin (6) Schizophrenia Current Visit: No Status: Chronic Assessment and plan: resumed home meds Qualifiers: Schizophrenia type: unspecified Qualified Code(s): F20.9 - Schizophrenia, unspecified (7) Hypertension Current Visit: No Status: Chronic Assessment and plan: stable with home meds on hydralazine IV PRN too Qualifiers: Hypertension type: essential hypertension Qualified Code(s): I10 - Essential (primary) hypertension (8) Obstructive sleep apnea Current Visit: Yes Status: Chronic Assessment and plan: CPAP QHS - Subjective Interval history: Mr. Pace is a 76 year old male with history of mechanical mitral valve on anticoagulation, CKD, coronary artery disease, recently diagnosed lymphoma presents with right-sided chest wall pain. Patient presents after having a recent lymph node resection by Dr. Elena on 02/11/2017. Patient reports progressive pain, swelling, and bruising over the area. Patient was hospitalized in the [place] for this issue on 02/15/17 and initially his hemoglobin on presentation there was 9.8, rechecked this morning found it to be 6.3. The patient was transferred to our ER and a CT scan showed a large hematoma between the pectoralis major and pectoralis minor muscle. He was admitted here for acute anemia with large left chest wall hematoma. He received total 10 U PRBC and 4 U FFP. He did have hematoma evacuation done on 02/18/17. . Pt is alert, awake and O x 3 today. Pain is tolerable with medications. No events over night - Constitutional Vitals: Temp Pulse Resp BP Pulse Ox 98.9 F 70 20 134/79 96 02/25/17 11:20 02/25/17 11:20 02/25/17 11:20 02/25/17 11:20 02/25/17 11:20 General appearance: Present: A&O X 3, answers questions appropriately - Head Head exam: Present: atraumatic, normal inspection - Respiratory Respiratory exam: Present: decreased breath sounds, wheezes. Absent: respiratory distress, rhonchi - Cardiovascular Cardiovascular exam: Present: +S1, +S2, systolic murmur - GI/Abdominal GI/Abdominal exam: Present: soft. Absent: rebound, rigid, tenderness - Extremities Exam Extremities exam: Absent: calf tenderness, pedal edema, tenderness Additional comments: improved ecchmoses / swelling Rt lateral chest wall region - Psychiatric Psychiatric exam: Present: normal affect, normal mood Internal Medicine: Result - Labs CBC & Chem 7: 02/25/17 05:22 02/24/17 03:59 Labs: Short CBC 02/25/17 Range/Units 05:22 WBC 7.0 (4.3-11.1) K/mcL Hgb 9.4 L (12.9-16.9) g/dL Hct 29.8 L (37.5-50.1) % Plt Count 176 (140-400) K/mcL Neutrophils # 4.8 (1.6-8.9) K/mcL - ABG Interpretation ABG results: PT/INR, D-dimer PT 20.4 Seconds (9.4-12.1) H 02/25/17 05:22 - VTE Documentation of Mechanical Device: Intermittent pneumatic compression device Consult Discharge Plan - Plan [facility]errals: [facility]Primary Care Provider[facility] - 02/26/17 10:00 am (THIS APPOINTMENT IS WITH THE [facility] )
[2017-02-25] MEDS: *HR* HYDROmorphone (PF) 1 MG/ML SYRINGE IVP PRN (14:46)
[2017-02-25] MEDS: *HR* Warfarin 10 MG TABLET PO SCH (18:04)
[2017-02-25] MEDS: risperiDONE 1 MG TABLET PO SCH (20:54)
[2017-02-25] MEDS: *HR* HYDROcodone/Acet 5/325 mg TABLET PO PRN (21:10)
[2017-02-26 07:45] LABS: Basophils # 0.1 K/mcL (0.0-0.2); Basophils % 0.8 %; Eosinophils # 0.3 K/mcL (0.0-0.6); Eosinophils % 4.5 %; Hematocrit 35.5 % (37.5-50.1); Immature Granulocytes % 2.2 % (0-4); Lymphocytes % 13.6 %; Mean Corpuscular Volume 93.7 fL (83.0-100.0); Mean Platelet Volume 10.5 fL (9.4-12.4); Monocytes # 0.8 K/mcL (0.0-1.3); Monocytes % 11.3 %; Neutrophils # 4.8 K/mcL (1.6-8.9); Platelet Count 165 K/mcL (140-400); Red Blood Count 3.79 M/mcL (4.19-5.50); Red Cell Distribution Width 16.7 % (11.5-14.5); Segmented Neutrophils % 67.6 %
[2017-02-26] MEDS: Tiotropium 18 MCG inhalation IH SCH (08:05)
[2017-02-26] MEDS: Budesonide/Formoterol 160/4.5 MDI IH SCH ×2 (08:06→22:26)
[2017-02-26 10:12] LABS: BUN/Creatinine Ratio 16 (6-26); Blood Urea Nitrogen 19 mg/dL (8-26); Calcium 9.3 mg/dL (8.6-10.8); Carbon Dioxide 22 mEq/L (19-29); Chloride 109 mEq/L (98-109); Glucose 111 mg/dL (70-99); Magnesium 2.1 mg/dL (1.6-2.6); Osmolality,Calculated 293 (280-300); Phosphorous 3.1 mg/dL (2.3-4.7); Potassium 4.4 mEq/L (3.5-4.5); Sodium 140 mEq/L (136-145); eGFR For African Americans > 60 (> 60); eGFR For Non-African Americans 59 (> 60)
[2017-02-26] MEDS: Fluticasone Propionate Nasal 50 MCG/SPRAY BOTTLE NS SCH ×2 (11:49→21:01)
--- NOTE | 2017-02-26 12:38 | Internal Med Progress Note ---
Date of Encounter: 02/26/17 Time of Encounter: 12:33 - Assessment and plan (1) Acute blood loss anemia Current Visit: No Status: Acute Assessment and plan: Improved. stable Hb. continue wound vac surgical consultation appreciated pt will be discharged to [place] with the wound vac (2) Acute kidney injury superimposed on chronic kidney disease Current Visit: Yes Status: Acute Assessment and plan: Renal function back to baseline will continue to monitor (3) Chest wall hematoma Current Visit: Yes Status: Acute Assessment and plan: s/p Hematoma evacuation transfuse PRBC as needed Cont Coumadin and bridging with Heparin gtt OOB to chair .. Activity as tolerated PT / OT eval: ECF Qualifiers: Encounter type: subsequent encounter Laterality: right Qualified Code(s) : S20.211D - Contusion of right front wall of thorax, subsequent encounter (4) Chronic atrial fibrillation Current Visit: No Status: Chronic Assessment and plan: Rate controlled anticoagulation with Coumadin, bridging with heparin gtt goal INR: 2.5-3.5 (given history of mechanical mitral valve) restarted home dose of BB, will hold if SBP<120 or HR<60 (5) Chronic obstructive pulmonary disease Current Visit: No Status: Chronic Assessment and plan: not in acute exacerbation continue home meds Qualifiers: COPD type: unspecified COPD Qualified Code(s): J44.9 - Chronic obstructive pulmonary disease, unspecified (6) Coronary artery disease Current Visit: No Status: Chronic Assessment and plan: continue home meds Qualifiers: Coronary Disease-Associated Artery/Lesion type: hughes artery [place] vs. transplanted heart: hughes heart Associated angina: without angina Qualified Code(s): I25.10 - Atherosclerotic heart disease of hughes coronary artery without angina pectoris (7) DVT prophylaxis Current Visit: No Status: Acute Assessment and plan: anticoagulated with heparin (8) History of mitral valve replacement Current Visit: Yes Status: Chronic Assessment and plan: on Coumadin bridging with Heparin d/c pending subtherapeutic INR, goal INR: 2.5-3.5 will continue to closely monitor (9) Hypertension Current Visit: No Status: Chronic Assessment and plan: BP within acceptable range continue home meds will closely monitor Qualifiers: Hypertension type: essential hypertension Qualified Code(s): I10 - Essential (primary) hypertension (10) Non-Hodgkin lymphoma Current Visit: Yes Status: Acute Assessment and plan: reviewed recent biopsy results Heme Onc recommend to f/u with them as an out pt to discuss about treatment options Qualifiers: Qualified Code(s): C85.90 - Non-Hodgkin lymphoma, unspecified, unspecified site (11) Obesity (BMI 30.0-34.9) Current Visit: No Status: Chronic (12) Obstructive sleep apnea Current Visit: Yes Status: Chronic Assessment and plan: CPAP QHS (13) Schizophrenia Current Visit: No Status: Chronic Assessment and plan: resumed home meds Qualifiers: Schizophrenia type: unspecified Qualified Code(s): F20.9 - Schizophrenia, unspecified - Subjective Interval history: Mr. Pace is a 76 year old male with history of mechanical mitral valve on anticoagulation, CKD, coronary artery disease, recently diagnosed lymphoma presents with right-sided chest wall pain. Patient presents after having a recent lymph node resection by Dr. Elena on 02/11/2017. Patient reports progressive pain, swelling, and bruising over the area. Patient was hospitalized in the [place] for this issue on 02/15/17 and initially his hemoglobin on presentation there was 9.8, rechecked was 6.3. The patient was transferred to our ER and a CT scan showed a large hematoma between the pectoralis major and pectoralis minor muscle. He was admitted here for acute anemia with large left chest wall hematoma. He received total 10 U PRBC and 4 U FFP. He did have hematoma evacuation done on 02/18/17. Pt seen and examined at bedside. Reports of feeling better and noted to have severe bruising on lateral right abdomen and upper chest, which is unchanged from previous day as per reports. No overnight issues were reported. Pt asking for assistance with feedings. - Constitutional Vitals: Temp Pulse Resp BP Pulse Ox 98.1 F 70 16 140/75 98 02/26/17 10:42 02/26/17 10:42 02/26/17 10:42 02/26/17 10:42 02/26/17 10:42 General appearance: Present: cooperative, A&O X 3, pleasant, no acute distress, obese, answers questions appropriately - Head Head exam: Present: atraumatic, normocephalic - Eye Eye exam: Present: conjuntiva pink, sclera anicteric - Respiratory Respiratory exam: Absent: respiratory distress, wheezes - Cardiovascular Cardiovascular exam: Present: clicks, RRR, +S1, +S2 - GI/Abdominal GI/Abdominal exam: Present: distended (obese, right upper chest wound vac intact , diffuse bruising noted on right abd extending to upper chest), normal bowel sounds, soft, no peritoneal signs. Absent: tenderness - Extremities Exam Extremities exam: Present: warm, radial pulses palpable and symmetrical. Absent : calf tenderness, cyanotic, pedal edema - Neurological Exam Neurological exam: Present: alert, oriented X3 (diffuse tremors in bilateral hands (chronic)) - Psychiatric Psychiatric exam: Present: normal affect, normal mood Internal Medicine: Result - Labs CBC & Chem 7: 02/26/17 07:37 02/26/17 09:02 Labs: Short CBC 02/26/17 Range/Units 07:37 WBC 7.2 (4.3-11.1) K/mcL Hgb 11.0 L D (12.9-16.9) g/dL Hct 35.5 L (37.5-50.1) % Plt Count 165 (140-400) K/mcL Neutrophils # 4.8 (1.6-8.9) K/mcL BMP 02/26/17 09:02 Sodium 140 Potassium 4.4 Chloride 109 Carbon Dioxide 22 BUN 19 Creatinine 1.21 Glucose 111 H Calcium 9.3 - ABG Interpretation ABG results: PT/INR, D-dimer PT 22.0 Seconds (9.4-12.1) H 02/26/17 07:37 - VTE Documentation of Mechanical Device: Intermittent pneumatic compression device Consult Discharge Plan - Plan [facility]errals: [facility] [Primary Care Provider] - 02/26/17 10:00 am (THIS APPOINTMENT IS WITH THE [facility] )
[2017-02-26] MEDS: Heparin 25,000 UNIT/500 ML D5W 25,000 UNIT/500 ML MLS IVC SCH (13:56)
[2017-02-26] MEDS: *HR* Warfarin 10 MG TABLET PO SCH (17:45)
[2017-02-26] MEDS: risperiDONE 1 MG TABLET PO SCH (20:54)
[2017-02-27] MEDS: Heparin 25,000 UNIT/500 ML D5W 25,000 UNIT/500 ML MLS IVC SCH ×2 (00:38→14:55)
[2017-02-27 05:21] LABS: Basophils % 0.4 %; Eosinophils # 0.3 K/mcL (0.0-0.6); Hematocrit 33.2 % (37.5-50.1); Hemoglobin 10.3 g/dL (12.9-16.9); Immature Granulocytes % 1.6 % (0-4); Lymphocytes % 14.1 %; Mean Corpuscular Hemoglobin 28.5 pg (28.0-33.3); Mean Corpuscular Volume 91.7 fL (83.0-100.0); Mean Platelet Volume 11.1 fL (9.4-12.4); Monocytes # 0.8 K/mcL (0.0-1.3); Monocytes % 12.3 %; Neutrophils # 4.6 K/mcL (1.6-8.9); Platelet Count 184 K/mcL (140-400); Red Blood Count 3.62 M/mcL (4.19-5.50); Red Cell Distribution Width 16.9 % (11.5-14.5); Segmented Neutrophils % 67.6 %
[2017-02-27 05:30] LABS: Hemoglobin A1C 5.1 %; INR 2.4; Prothrombin Time 26.1 Seconds (9.4-12.1)
[2017-02-27 05:35] LABS: BUN/Creatinine Ratio 14 (6-26); Blood Urea Nitrogen 17 mg/dL (8-26); Calcium 9.3 mg/dL (8.6-10.8); Carbon Dioxide 22 mEq/L (19-29); Chloride 112 mEq/L (98-109); Glucose 95 mg/dL (70-99); Osmolality,Calculated 295 (280-300); Phosphorous 3.5 mg/dL (2.3-4.7); Potassium 4.3 mEq/L (3.5-4.5); eGFR For African Americans > 60 (> 60); eGFR For Non-African Americans > 60 (> 60)
[2017-02-27 05:41] LABS: Sodium 142 mEq/L (136-145)
[2017-02-27] MEDS: Tiotropium 18 MCG inhalation IH SCH (08:21)
[2017-02-27] MEDS: Budesonide/Formoterol 160/4.5 MDI IH SCH ×2 (08:22→20:10)
--- NOTE | 2017-02-27 09:01 | General Surgery Progress Note ---
<Herberth Toure - Last Filed: 02/27/17 10:40> Date of Encounter: 02/27/17 Time of Encounter: 08:15 - Assessment and Plan (1) Chest wall hematoma Current Visit: Yes Status: Acute POD #9 Evacuation right axilla and chest wall hematoma by Dr. Elena Supportive care, pain management Ecchymosis beginning to fade, continue to monitor Wound vac placed - change today, every MWF [facility] requires that INR be therapeutic and patient off heparin - currently 2.4, goal of 2.5 to 3.5. [facility] wound care nurse and physician are to manage the wound vac when he arrives Qualifiers: Encounter type: subsequent encounter Laterality: right Qualified Code(s) : S20.211D - Contusion of right front wall of thorax, subsequent encounter (2) Acute blood loss anemia Current Visit: No Status: Acute Improving Follow Hgb Last 10.3 < 9.4 - asymptomatic Transfuse as necessary Monitor for new or ongoing bleeding (3) History of mitral valve replacement Current Visit: Yes Status: Chronic Continue heparin bridge to coumadin (started 02/19/17) Follow INR (last 2.4), Goal 2.5-3.5 (4) Anticoagulated Current Visit: Yes Status: Chronic Continue heparin bridge to coumadin (5) Schizophrenia Current Visit: No Status: Chronic Stable Continue home medication Qualifiers: Schizophrenia type: unspecified Qualified Code(s): F20.9 - Schizophrenia, unspecified (6) Elevated risk of hemorrhage due to anticoagulant therapy Current Visit: Yes Status: Acute See plan of care above (7) Lymphoma Current Visit: No Status: Acute Qualifiers: Lymphoma type: non-Hodgkin Non-Hodgkin lymphoma type: other specified type Lymphoma site: axillary Qualified Code(s): C85.84 - Other specified types of non-Hodgkin lymphoma, lymph nodes of axilla and upper limb Subjective Patient reports: no new complaints, tolerating a regular diet, voiding w/o difficulty, flatus, bowel movement, afebrile Objective Vital Signs - Last 8 Hours Temp Pulse Resp BP Pulse Ox 02/27/17 07:44 97.4 F L 85 16 155/88 97 02/27/17 03:46 98.2 F 83 16 145/81 97 Intake and Output 02/26/17 02/27/17 02/27/17 23:59 07:59 15:59 Intake Total 0 / 0 0 / 0 Output Total 510 / 510 995 / 995 Balance -510 / -510 -995 / -995 Intake: Oral 0 / 0 0 / 0 Output: Urine 450 / 450 925 / 925 Wound Drainage 60 60 70 / 70 Right Chest 60 60 70 / 70 Other: Meal Dinner Percent of Meal Consumed 0% Stool Size Moderate Stool Consistency soft Stool Characteristics Pasty Stool Color Brown Weight 108.8 kg Blood Glucose* 103 Patient Weight 02/27/17 23:59 Weight 108.8 kg - General physical appearance well developed, well nourished, no distress - Eyes normal ocular movement - ENT atraumatic, normocephalic - Neck Neck exam: trachea midline - Respiratory normal expansion, normal respiratory effort, clear to auscultation - Cardiovascular Cardiovascular exam: Present: RRR - Abdomen Abdomen: Present: bowel sounds present, soft, tender (mild, associated with ecchymosis) - Incision Incision: Present: draining (into wound vac), serosanguinous - Integumentary other (ecchymosis beginning to fade) - Psychiatric other (stable flat affect) - Labs 02/27/17 03:43 02/27/17 03:43 Diabetes panel 02/26/17 02/27/17 02/27/17 Range/Units 09:02 03:43 03:43 Sodium 140 142 (136-145) mEq/L Potassium 4.4 4.3 (3.5-4.5) mEq/L Chloride 109 112 H (98-109) mEq/L Carbon Dioxide 22 22 (19-29) mEq/L BUN 19 17 (8-26) mg/dL Creatinine 1.21 1.18 (0.72-1.25) mg/dL Glucose 111 H 95 (70-99) mg/dL Hemoglobin A1c 5.1 ( - 5.6) % Calcium 9.3 9.3 (8.6-10.8) mg/dL Calcium panel 02/26/17 02/27/17 Range/Units 09:02 03:43 Calcium 9.3 9.3 (8.6-10.8) mg/dL Phosphorus 3.1 3.5 (2.3-4.7) mg/dL Pituitary panel 02/26/17 02/27/17 Range/Units 09:02 03:43 Sodium 140 142 (136-145) mEq/L Potassium 4.4 4.3 (3.5-4.5) mEq/L Chloride 109 112 H (98-109) mEq/L Carbon Dioxide 22 22 (19-29) mEq/L BUN 19 17 (8-26) mg/dL Creatinine 1.21 1.18 (0.72-1.25) mg/dL Glucose 111 H 95 (70-99) mg/dL Calcium 9.3 9.3 (8.6-10.8) mg/dL Adrenal panel 02/26/17 02/27/17 Range/Units 09:02 03:43 Sodium 140 142 (136-145) mEq/L Potassium 4.4 4.3 (3.5-4.5) mEq/L Chloride 109 112 H (98-109) mEq/L Carbon Dioxide 22 22 (19-29) mEq/L BUN 19 17 (8-26) mg/dL Creatinine 1.21 1.18 (0.72-1.25) mg/dL Glucose 111 H 95 (70-99) mg/dL Calcium 9.3 9.3 (8.6-10.8) mg/dL - VTE Documentation of Mechanical Device: Intermittent pneumatic compression device Consult Discharge Plan - Plan Instructions: Chronic Obstructive Pulmonary Disease (DC) Additional Instructions: Please follow up with your primary care physician and general surgery within five days after your discharge from the hospital. Please follow up with oncology within one to two weeks after your discharge from the hospital. Continue wound vac support continue to monitor INR, goal INR: 2.5-3.5 Resume all your other home medications as prescribed by your primary care physician. Referrals: Donna Elena MD [Partnered Physician] - 03/06/17 1:50 pm Jenn Salguero MD [Partnered Physician] - 03/15/17 10:20 am [facility] - (THIS APPOINTMENT IS WITH THE [facility] ) Prescriptions: HYDROcodone/Acet 5/325 mg [[place] 5-325 mg] 1 tab PO Q4H PRN #20 PRN Reason: Severe Pain <Donna Elena - Last Filed: 03/01/17 09:14> Date of Encounter: 02/27/17 - Assessment and Plan (1) Elevated risk of hemorrhage due to anticoagulant therapy Current Visit: Yes Status: Acute (2) Anticoagulated Current Visit: Yes Status: Chronic inr 2.4 today, ok to stop heparin and see if [facility] able [facility] patient (3) Chest wall hematoma Current Visit: Yes Status: Acute continue vac changes, M, W, F by [facility]'s ok to [facility] with [facility] when medically appropriate, general surgery will sign off from daily visits. Nurse practicioners will still continue to change vac three times weekly for the duration of patient in- hospital stay Qualifiers: Encounter type: subsequent encounter Laterality: right Qualified Code(s) : S20.211D - Contusion of right front wall of thorax, subsequent encounter (4) Lymphoma Current Visit: No Status: Acute follow up with oncology as outpatient Qualifiers: Lymphoma type: non-Hodgkin Non-Hodgkin lymphoma type: other specified type Lymphoma site: axillary Qualified Code(s): C85.84 - Other specified types of non-Hodgkin lymphoma, lymph nodes of axilla and upper limb Subjective Patient reports: no new complaints, tolerating a regular diet, voiding w/o difficulty, bowel movement Objective Vital Signs - Last 8 Hours Temp Pulse Resp BP Pulse Ox 03/01/17 07:04 98.1 F 73 16 143/79 95 03/01/17 03:05 97.8 F 100 14 114/64 91 Intake and Output 02/28/17 03/01/17 03/01/17 23:59 07:59 15:59 Intake Total 240 / 240 520 / 520 Output Total 650 / 650 150 / 150 Balance -410 / -410 370 / 370 Intake: Oral 240 / 240 520 / 520 Output: Urine 400 / 400 100 / 100 Urine/Stool Mix 250 / 250 Wound Drainage 50 / 50 Right Chest 50 / 50 Other: Meal Refused Percent of Meal Consumed 0% Stool Size Moderate Stool Consistency loose liquid Stool Color Brown # Voids 1 Weight 107.592 kg Blood Glucose* 97 103 Patient Weight 03/01/17 23:59 Weight 107.592 kg - General physical appearance well nourished, no distress - Eyes normal ocular movement - ENT atraumatic, normocephalic - Respiratory normal expansion, normal respiratory effort - Integumentary no growths, other - Neurologic CN 2-12 grossly intact - Musculoskeletal normal posture - Psychiatric oriented to time, oriented to person, oriented to place, other - Labs 03/01/17 08:35 03/01/17 08:35 Diabetes panel 03/01/17 Range/Units 08:35 Sodium 137 (136-145) mEq/L Potassium 4.2 (3.5-4.5) mEq/L Chloride 111 H (98-109) mEq/L Carbon Dioxide 18 L (19-29) mEq/L BUN 19 (8-26) mg/dL Creatinine 1.29 H (0.72-1.25) mg/dL Glucose 98 (70-99) mg/dL Calcium 9.0 (8.6-10.8) mg/dL Calcium panel 03/01/17 Range/Units 08:35 Calcium 9.0 (8.6-10.8) mg/dL Phosphorus 3.4 (2.3-4.7) mg/dL Pituitary panel 03/01/17 Range/Units 08:35 Sodium 137 (136-145) mEq/L Potassium 4.2 (3.5-4.5) mEq/L Chloride 111 H (98-109) mEq/L Carbon Dioxide 18 L (19-29) mEq/L BUN 19 (8-26) mg/dL Creatinine 1.29 H (0.72-1.25) mg/dL Glucose 98 (70-99) mg/dL Calcium 9.0 (8.6-10.8) mg/dL Adrenal panel 03/01/17 Range/Units 08:35 Sodium 137 (136-145) mEq/L Potassium 4.2 (3.5-4.5) mEq/L Chloride 111 H (98-109) mEq/L Carbon Dioxide 18 L (19-29) mEq/L BUN 19 (8-26) mg/dL Creatinine 1.29 H (0.72-1.25) mg/dL Glucose 98 (70-99) mg/dL Calcium 9.0 (8.6-10.8) mg/dL - Attending Attestation I examined this patient and my medical decision-making was reviewed with the Resident Physician. I agree with the documented findings, disposition and treatment plan as described except to the extent set forth below.
--- NOTE | 2017-02-27 11:03 | Internal Med Progress Note ---
Date of Encounter: 02/27/17 Time of Encounter: 11:00 - Assessment and plan (1) Acute blood loss anemia Current Visit: No Status: Acute Assessment and plan: Improved. stable Hb. continue wound vac surgical consultation appreciated pt will be discharged to [place] with the wound vac (2) Acute kidney injury superimposed on chronic kidney disease Current Visit: Yes Status: Acute Assessment and plan: Renal function back to baseline will continue to monitor (3) Chest wall hematoma Current Visit: Yes Status: Acute Assessment and plan: s/p Hematoma evacuation transfuse PRBC as needed Cont Coumadin and bridging with Heparin gtt OOB to chair .. Activity as tolerated PT / OT eval: [facility] Qualifiers: Encounter type: subsequent encounter Laterality: right Qualified Code(s) : S20.211D - Contusion of right front wall of thorax, subsequent encounter (4) Chronic atrial fibrillation Current Visit: No Status: Chronic Assessment and plan: Rate controlled anticoagulation with Coumadin, bridging with heparin gtt goal INR: 2.5-3.5 (given history of mechanical mitral valve) continue home dose of BB, will hold if SBP<120 or HR<60 (5) Chronic obstructive pulmonary disease Current Visit: No Status: Chronic Assessment and plan: not in acute exacerbation continue home meds Qualifiers: COPD type: unspecified COPD Qualified Code(s): J44.9 - Chronic obstructive pulmonary disease, unspecified (6) Coronary artery disease Current Visit: No Status: Chronic Assessment and plan: continue home meds Qualifiers: Coronary Disease-Associated Artery/Lesion type: [place] artery [place] vs. transplanted heart: [place] heart Associated angina: without angina Qualified Code(s): I25.10 - Atherosclerotic heart disease of [place] coronary artery without angina pectoris (7) DVT prophylaxis Current Visit: No Status: Acute Assessment and plan: anticoagulated with heparin (8) History of mitral valve replacement Current Visit: Yes Status: Chronic Assessment and plan: on Coumadin bridging with Heparin d/c pending subtherapeutic INR, goal INR: 2.5-3.5 will continue to closely monitor (9) Hypertension Current Visit: No Status: Chronic Assessment and plan: BP within acceptable range continue home meds will closely monitor Qualifiers: Hypertension type: essential hypertension Qualified Code(s): I10 - Essential (primary) hypertension (10) Non-Hodgkin lymphoma Current Visit: Yes Status: Acute Assessment and plan: reviewed recent biopsy results Heme Onc recommend to f/u with them as an out pt to discuss about treatment options Qualifiers: Non-Hodgkin lymphoma type: unspecified type Lymphoma site: unspecified region Qualified Code(s): C85.90 - Non-Hodgkin lymphoma, unspecified, unspecified site (11) Obesity (BMI 30.0-34.9) Current Visit: No Status: Chronic (12) Obstructive sleep apnea Current Visit: Yes Status: Chronic Assessment and plan: CPAP QHS (13) Schizophrenia Current Visit: No Status: Chronic Assessment and plan: resumed home meds Qualifiers: Schizophrenia type: unspecified Qualified Code(s): F20.9 - Schizophrenia, unspecified - Subjective Interval history: Mr. Pace is a 76 year old male with history of mechanical mitral valve on anticoagulation, CKD, coronary artery disease, recently diagnosed lymphoma presents with right-sided chest wall pain. Patient presents after having a recent lymph node resection by Dr. Elena on 02/11/2017. Patient reports progressive pain, swelling, and bruising over the area. Patient was hospitalized in the [place] for this issue on 02/15/17 and initially his hemoglobin on presentation there was 9.8, rechecked was 6.3. The patient was transferred to our ER and a CT scan showed a large hematoma between the pectoralis major and pectoralis minor muscle. He was admitted here for acute anemia with large left chest wall hematoma. He received total 10 U PRBC and 4 U FFP. He did have hematoma evacuation done on 02/18/17. Pt seen and examined at bedside. Sitting in chair and denies any complains at this time. No overnight issues reported. - Constitutional Vitals: Temp Pulse Resp BP Pulse Ox 98.5 F 71 14 125/77 95 02/27/17 10:23 02/27/17 10:23 02/27/17 10:23 02/27/17 10:23 02/27/17 10:23 General appearance: Present: cooperative, A&O X 3, pleasant, no acute distress, obese, answers questions appropriately - Head Head exam: Present: atraumatic, normocephalic - Respiratory Respiratory exam: Present: CTAB. Absent: respiratory distress, wheezes - Cardiovascular Cardiovascular exam: Present: clicks, RRR, +S1, +S2 - GI/Abdominal GI/Abdominal exam: Present: distended (obese, diffuse bruising on right lateral abd and chest, wound vac in place), normal bowel sounds, soft. Absent: tenderness - Extremities Exam Extremities exam: Present: warm, radial pulses palpable and symmetrical. Absent : calf tenderness, pedal edema - Neurological Exam Neurological exam: Present: alert, oriented X3 - Psychiatric Psychiatric exam: Present: normal affect, normal mood Internal Medicine: Result - Labs CBC & Chem 7: 02/27/17 03:43 02/27/17 03:43 Labs: Short CBC 02/27/17 Range/Units 03:43 WBC 6.8 (4.3-11.1) K/mcL Hgb 10.3 L (12.9-16.9) g/dL Hct 33.2 L (37.5-50.1) % Plt Count 184 (140-400) K/mcL Neutrophils # 4.6 (1.6-8.9) K/mcL BMP 02/27/17 03:43 Sodium 142 Potassium 4.3 Chloride 112 H Carbon Dioxide 22 BUN 17 Creatinine 1.18 Glucose 95 Calcium 9.3 - ABG Interpretation ABG results: PT/INR, D-dimer PT 26.1 Seconds (9.4-12.1) H 02/27/17 03:43 - VTE Documentation of Mechanical Device: Intermittent pneumatic compression device Consult Discharge Plan - Plan [facility]errals: [facility]Primary Care Provider] - 02/26/17 10:00 am (THIS APPOINTMENT IS WITH THE [facility] )
[2017-02-27] MEDS: *HR* HYDROmorphone (PF) 1 MG/ML SYRINGE IVP PRN (11:38)
[2017-02-27] MEDS: Fluticasone Propionate Nasal 50 MCG/SPRAY BOTTLE NS SCH ×2 (11:39→20:46)
[2017-02-27] MEDS: *HR* Warfarin 10 MG TABLET PO SCH (18:15)
[2017-02-27] MEDS: risperiDONE 1 MG TABLET PO SCH (20:44)
[2017-02-28 05:06] LABS: Basophils % 0.8 %; Eosinophils % 3.2 %; Hematocrit 35.8 % (37.5-50.1); Hemoglobin 11.2 g/dL (12.9-16.9); Immature Granulocytes % 1.5 % (0-4); Lymphocytes % 14.9 %; Mean Corpuscular HGB Conc 31.3 g/dL (31.6-35.5); Mean Corpuscular Hemoglobin 29.2 pg (28.0-33.3); Mean Corpuscular Volume 93.2 fL (83.0-100.0); Mean Platelet Volume 10.6 fL (9.4-12.4); Monocytes % 11.6 %; Platelet Count 162 K/mcL (140-400); Red Blood Count 3.84 M/mcL (4.19-5.50); Red Cell Distribution Width 16.8 % (11.5-14.5)
[2017-02-28 05:07] LABS: Basophils # 0.1 K/mcL (0.0-0.2); Eosinophils # 0.2 K/mcL (0.0-0.6); Lymphocytes # 1.1 K/mcL (0.6-4.6); Monocytes # 0.9 K/mcL (0.0-1.3); Neutrophils # 5.2 K/mcL (1.6-8.9)
[2017-02-28 05:08] LABS: INR 2.5; Prothrombin Time 27.8 Seconds (9.4-12.1)
[2017-02-28 05:11] LABS: Activated Partial Thrombo Time 106.5 Seconds (26.0-36.0)
[2017-02-28 05:14] LABS: BUN/Creatinine Ratio 15 (6-26); Blood Urea Nitrogen 19 mg/dL (8-26); Calcium 9.5 mg/dL (8.6-10.8); Carbon Dioxide 19 mEq/L (19-29); Chloride 111 mEq/L (98-109); Glucose 93 mg/dL (70-99); Magnesium 1.9 mg/dL (1.6-2.6); Osmolality,Calculated 288 (280-300); Phosphorous 3.6 mg/dL (2.3-4.7); Potassium 4.3 mEq/L (3.5-4.5); Sodium 138 mEq/L (136-145); eGFR For African Americans > 60 (> 60); eGFR For Non-African Americans 57 (> 60)
[2017-02-28] MEDS: Tiotropium 18 MCG inhalation IH SCH (07:50)
[2017-02-28] MEDS: Budesonide/Formoterol 160/4.5 MDI IH SCH ×2 (07:50→20:22)
[2017-02-28] MEDS: *HR* HYDROmorphone (PF) 1 MG/ML SYRINGE IVP PRN ×2 (08:24→12:20)
[2017-02-28] MEDS: Fluticasone Propionate Nasal 50 MCG/SPRAY BOTTLE NS SCH ×2 (08:26→20:50)
--- NOTE | 2017-02-28 10:45 | Discharge Summary ---
Date of Encounter: 02/28/17 Time of Encounter: 10:42 - Discharge Diagnosis (1) Acute blood loss anemia Priority: Primary Status: Acute (2) Acute kidney injury superimposed on chronic kidney disease Priority: Secondary Status: Resolved (3) Chest wall hematoma Priority: Primary Status: Acute Qualifiers: Encounter type: subsequent encounter Laterality: right Qualified Code(s) : S20.211D - Contusion of right front wall of thorax, subsequent encounter (4) Chronic atrial fibrillation Priority: Secondary Status: Chronic (5) Chronic obstructive pulmonary disease Priority: Secondary Status: Chronic Qualifiers: COPD type: unspecified COPD Qualified Code(s): J44.9 - Chronic obstructive pulmonary disease, unspecified (6) Coronary artery disease Priority: Secondary Status: Chronic Qualifiers: Coronary Disease-Associated Artery/Lesion type: [place] artery [place] vs. transplanted heart: [place] heart Associated angina: without angina Qualified Code(s): I25.10 - Atherosclerotic heart disease of [place] coronary artery without angina pectoris (7) DVT prophylaxis Priority: Secondary Status: Acute (8) History of mitral valve replacement Priority: Secondary Status: Chronic (9) Hypertension Priority: Secondary Status: Chronic Qualifiers: Hypertension type: essential hypertension Qualified Code(s): I10 - Essential (primary) hypertension (10) Non-Hodgkin lymphoma Priority: Secondary Status: Chronic Qualifiers: Non-Hodgkin lymphoma type: unspecified type Lymphoma site: unspecified region Qualified Code(s): C85.90 - Non-Hodgkin lymphoma, unspecified, unspecified site (11) Obesity (BMI 30.0-34.9) Priority: Secondary Status: Chronic (12) Obstructive sleep apnea Priority: Secondary Status: Chronic (13) Schizophrenia Priority: Secondary Status: Chronic Qualifiers: Schizophrenia type: unspecified Qualified Code(s): F20.9 - Schizophrenia, unspecified - Discharge Medications Prescriptions: HYDROcodone/Acet 5/325 mg [[place] 5-325 mg] 1 tab PO Q4H PRN #20 PRN Reason: Severe Pain Home Medications: Albuterol Sulfate [Albuterol Inhaler] 2 puff IH QID PRN 06/21/15 [History] Atorvastatin Calcium [Lipitor] 40 mg PO HS 06/21/15 [History] Metoprolol [Lopressor] 37.5 mg PO BID 06/21/15 [History] Paroxetine [Paxil] 10 mg PO QAM 06/21/15 [History] Pyridoxine HCl [Vitamin B-6] 50 mg PO QAM 06/21/15 [History] RisperiDONE [Risperdal] 1 mg PO HS 06/21/15 [History] Vitamin E (Dl,Tocopheryl Acet) [Vitamin E] 400 unit PO HS 06/21/15 [History] Fluticasone Propionate Nasal [Flonase] 50 mcg NS BID 08/20/16 [History] Tiotropium [Spiriva] 18 mcg IH DAILY 08/20/16 [History] Warfarin [Coumadin] 10 mg PO SUMOTUWETHFR 12/27/16 [History] Budesonide/Formoterol 160/4.5 [Symbicort 160/4.5] 2 puff IH BIDR 02/11/17 [ History] Docusate [Colace] 100 mg PO BID #30 capsule 02/11/17 [Rx] Docusate [Colace] 200 mg PO DAILY PRN 02/11/17 [History] Ferrous Sulfate [Iron] 325 mg PO BID 02/11/17 [History] Furosemide [Lasix] 40 mg PO BID 02/11/17 [History] HYDROcodone/Acet 5/325 mg [[place] 5-325 mg] 1 tab PO Q4H PRN #25 tab 02/11/17 [Rx ] Warfarin [Coumadin] 7.5 mg PO SA 02/11/17 [History] HYDROcodone/Acet 5/325 mg [[place] 5-325 mg] 1 tab PO Q4H PRN #20 02/28/17 [Rx] Tamsulosin [Flomax] 0.4 mg PO DAILY 02/28/17 [Rx] Allergies/Adverse Reactions: 3 Allergy/AdvReac Type Severity Reaction Status Date / Time piperacillin Allergy Anaphylaxis Verified 02/16/17 17:52 Date of admission: 02/16/17 19:24 [facility] Consults: 02/17/17 13:08 Consult to Oncology Hematology [CONS] Routine Consulting Provider: Gabriel Corona I Reason for Consult: Acute blood loss anemia, New dx non hodgkin's lymphoma Call Completed: Yes 02/22/17 12:20 Consult to Occupational Therapy [CONS] Routine Comment: Evaluate, develop and implement POC Reason for Consult: evaluate and treat Consult to Physical Therapy [CONS] Routine Comment: Evaluate, develop and implement POC Reason for Consult: evaluate and treat Discharging clinician: Viviane Wilkinson Anticipated date of discharge: 02/28/17 - Patient Status Disposition: Transfer SNF Condition: Good Functional capacity at discharge: uses cane/walker Overall status at discharge: patient is back to baseline - Discharge Instructions Follow Up With: Donna Elena MD [Partnered Physician] - 03/06/17 1:50 pm [facility],PC[facility] [Primary Care Provider] - (THIS APPOINTMENT IS WITH THE [facility] TE[facility] ) Additional Instructions: Please follow up with your primary care physician and general surgery within five days after your discharge from the hospital. Please follow up with oncology within one to two weeks after your discharge from the hospital. Continue wound vac support continue to monitor INR, goal INR: 2.5-3.5 Resume all your other home medications as prescribed by your primary care physician. - Diet and Activity Activity: as per physical therapy Diet: diabetic diet, low salt diet Hospital course: Mr. Pace is a 76 year old male with extensive med history including mechanical MV replacement on AC, CKD, CAD, newly diagnosed lymphoma admitted for right chest pain. Prior to his hospitalization, he underwent lymph node resection resulting in acute hematoma. He was found to have acute blood loss anemia requiring FFP and PRBC transfusion. He was seen by general surgery and underwent hematoma evacuation with a wound vac in place. He was restarted on anticoagulation with coumadin bridging with heparin. He had no further decline in his H&H. He was evaluated by oncology and outpatient management was recommended. At this time, patient is hemodynamically stable and will be discharged to the [facility]. He is to continue wound vac care at the ECF. His INR is within therapeutic range and is to continue on coumadin after discharge. Pt will be discharged to the [facility] today. - Time Spent with Patient Total time spent providing and/or coordinating discharge services: Greater than 30 minutes - Constitutional Vitals: Temp Pulse Resp BP Pulse Ox 97.6 F 85 18 138/84 94 02/28/17 06:45 02/28/17 06:45 02/28/17 07:52 02/28/17 06:45 02/28/17 07:52 General appearance: Present: cooperative, A&O X 3, pleasant, no acute distress, obese, answers questions appropriately - Head Head exam: Present: atraumatic, normocephalic - Eye Eye exam: Present: conjuntiva pink, sclera anicteric - Respiratory Respiratory exam: Absent: respiratory distress, wheezes - Cardiovascular Cardiovascular exam: Present: clicks, RRR, +S1, +S2 - GI/Abdominal GI/Abdominal exam: Present: normal bowel sounds, soft. Absent: tenderness ( diffuse bruising on right lateral abd extending to right lateral chest wall- wound vac in place) - Extremities Exam Extremities exam: Present: warm, radial pulses palpable and symmetrical. Absent : calf tenderness - Neurological Exam Neurological exam: Present: alert, oriented X3 - Psychiatric Psychiatric exam: Present: normal affect, normal mood - VTE Documentation of Mechanical Device: Intermittent pneumatic compression device
--- NOTE | 2017-02-28 10:54 | Physician Discharge Referral ---
ExtendedCare Referral Info Transfer To: F - Diagnosis (1) Acute blood loss anemia Priority: Primary Status: Acute (2) Acute kidney injury superimposed on chronic kidney disease Priority: Secondary Status: Resolved (3) Chest wall hematoma Priority: Primary Status: Acute (4) Chronic atrial fibrillation Priority: Secondary Status: Chronic (5) Chronic obstructive pulmonary disease Priority: Secondary Status: Chronic (6) Coronary artery disease Priority: Secondary Status: Chronic (7) DVT prophylaxis Priority: Secondary Status: Acute (8) History of mitral valve replacement Priority: Secondary Status: Chronic (9) Hypertension Priority: Secondary Status: Chronic (10) Non-Hodgkin lymphoma Priority: Secondary Status: Chronic (11) Obesity (BMI 30.0-34.9) Priority: Secondary Status: Chronic (12) Obstructive sleep apnea Priority: Secondary Status: Chronic (13) Schizophrenia Priority: Secondary Status: Chronic - Transfer Medications Prescriptions: HYDROcodone/Acet 5/325 mg [[place] 5-325 mg] 1 tab PO Q4H PRN #20 PRN Reason: Severe Pain Home Medications: Albuterol Sulfate [Albuterol Inhaler] 2 puff IH QID PRN 06/21/15 [History] Atorvastatin Calcium [Lipitor] 40 mg PO HS 06/21/15 [History] Metoprolol [Lopressor] 37.5 mg PO BID 06/21/15 [History] Paroxetine [Paxil] 10 mg PO QAM 06/21/15 [History] Pyridoxine HCl [Vitamin B-6] 50 mg PO QAM 06/21/15 [History] RisperiDONE [Risperdal] 1 mg PO HS 06/21/15 [History] Vitamin E (Dl,Tocopheryl Acet) [Vitamin E] 400 unit PO HS 06/21/15 [History] Fluticasone Propionate Nasal [Flonase] 50 mcg NS BID 08/20/16 [History] Tiotropium [Spiriva] 18 mcg IH DAILY 08/20/16 [History] Warfarin [Coumadin] 10 mg PO SUMOTUWETHFR 12/27/16 [History] Budesonide/Formoterol 160/4.5 [Symbicort 160/4.5] 2 puff IH BIDR 02/11/17 [ History] Docusate [Colace] 100 mg PO BID #30 capsule 02/11/17 [Rx] Docusate [Colace] 200 mg PO DAILY PRN 02/11/17 [History] Ferrous Sulfate [Iron] 325 mg PO BID 02/11/17 [History] Furosemide [Lasix] 40 mg PO BID 02/11/17 [History] HYDROcodone/Acet 5/325 mg [[place] 5-325 mg] 1 tab PO Q4H PRN #25 tab 02/11/17 [Rx ] Warfarin [Coumadin] 7.5 mg PO SA 02/11/17 [History] HYDROcodone/Acet 5/325 mg [[place] 5-325 mg] 1 tab PO Q4H PRN #20 02/28/17 [Rx] Tamsulosin [Flomax] 0.4 mg PO DAILY 02/28/17 [Rx] Allergies/Adverse Reactions: 3 Allergy/AdvReac Type Severity Reaction Status Date / Time piperacillin Allergy Anaphylaxis Verified 02/16/17 17:52 - Respiratory Orders Smoking Cessation: Smoking cessation has been advised. For more information, call the [employer] Quit Line at 4-161-KMNZ-NOW. - Rehabiliation Orders Other: Please follow up with your primary care physician and general surgery within five days after your discharge from the hospital. Please follow up with oncology within one to two weeks after your discharge from the hospital. Continue wound vac support continue to monitor INR, goal INR: 2.5-3.5 Resume all your other home medications as prescribed by your primary care physician. CERTIFICATION: I certify that the transfer of the above named patient to an Extended Care Facility is necessary for the continuing treatment of the diagnosis listed. The above information is true and accurate reflection of patient's current condition. Confidential - Redisclosure prohibited without a patient's written consent.
[2017-02-28] MEDS: *HR* Warfarin 10 MG TABLET PO SCH (20:39)
[2017-02-28] MEDS: risperiDONE 1 MG TABLET PO SCH (20:50)
[2017-03-01] MEDS: *HR* HYDROmorphone (PF) 1 MG/ML SYRINGE IVP PRN (07:52)
[2017-03-01] MEDS: Fluticasone Propionate Nasal 50 MCG/SPRAY BOTTLE NS SCH (07:53)
[2017-03-01 08:45] LABS: Basophils % 0.5 %; Eosinophils # 0.2 K/mcL (0.0-0.6); Eosinophils % 2.7 %; Hematocrit 34.1 % (37.5-50.1); Hemoglobin 10.9 g/dL (12.9-16.9); Immature Granulocytes % 1.1 % (0-4); Immature Platelets 3.7 % (1.1-6.1); Lymphocytes # 0.8 K/mcL (0.6-4.6); Lymphocytes % 10.2 %; Mean Corpuscular Hemoglobin 29.4 pg (28.0-33.3); Mean Corpuscular Volume 91.9 fL (83.0-100.0); Mean Platelet Volume 10.5 fL (9.4-12.4); Monocytes # 0.9 K/mcL (0.0-1.3); Monocytes % 11.4 %; Neutrophils # 5.9 K/mcL (1.6-8.9); Platelet Count 173 K/mcL (140-400); Red Blood Count 3.71 M/mcL (4.19-5.50); Red Cell Distribution Width 16.8 % (11.5-14.5); Segmented Neutrophils % 74.1 %
[2017-03-01 08:51] LABS: INR 2.5; Prothrombin Time 27.7 Seconds (9.4-12.1)
[2017-03-01 09:00] LABS: BUN/Creatinine Ratio 15 (6-26); Blood Urea Nitrogen 19 mg/dL (8-26); Carbon Dioxide 18 mEq/L (19-29); Chloride 111 mEq/L (98-109); Glucose 98 mg/dL (70-99); Osmolality,Calculated 286 (280-300); Phosphorous 3.4 mg/dL (2.3-4.7); Potassium 4.2 mEq/L (3.5-4.5); Sodium 137 mEq/L (136-145); eGFR For African Americans > 60 (> 60); eGFR For Non-African Americans 54 (> 60)
[2017-03-01] MEDS ORDERED: *HR* HYDROmorphone 2 MG/ML SYRINGE IVP ONE (09:46)
--- NOTE | 2017-03-01 10:29 | Event Note ---
Date of Encounter: 03/01/17 Time of Encounter: 10:16 Wound Vac changed: Wound beds are granulated and with some small areas of fibrous tissue. No s/s of infection. There is a small amount of serosanguineous output in the canister vac approximately 100 mL over the last 48 hours. He reports that the discomfort compared to previous dressing changes. The previous dressing, one black foam and 2 white foams were removed. The inner cavity consists of 2 tunneling areas the 1st of which extends superiorly and laterally towards the left axilla. The 2nd tunneling area communicates with the 1st described area, but extends superiorly and laterally towards clavicle. Both areas were packed with white foam that remained visible prior to the application of the black film and the wound VAC dressing. The patient was placed to suction and there were no leaks noted. Ok to d/c from a surgical perspective. [facility] but rather goes to a rehab facility. The rehab facility will need to either complete the wound VAC changes every Saturday/ Saturday/Saturday OR transport the patient to the wound clinic on Saturday/ Saturday/Saturday for wound VAC changes beginning 03/04/2017 at 1: 00 pm. [facility] is aware of these needs and is currently working on placement.
[2017-03-01] MEDS: Tiotropium 18 MCG inhalation IH SCH (11:36)
[2017-03-01] MEDS: Budesonide/Formoterol 160/4.5 MDI IH SCH ×2 (11:36→20:03)
--- NOTE | 2017-03-01 12:00 | Internal Med Progress Note ---
Date of Encounter: 03/01/17 Time of Encounter: 11:59 - Assessment and plan (1) Acute blood loss anemia Current Visit: No Status: Acute (2) Acute kidney injury superimposed on chronic kidney disease Current Visit: Yes Status: Resolved (3) Chest wall hematoma Current Visit: Yes Status: Acute Qualifiers: Encounter type: subsequent encounter Laterality: right Qualified Code(s) : S20.211D - Contusion of right front wall of thorax, subsequent encounter (4) Chronic atrial fibrillation Current Visit: No Status: Chronic (5) Chronic obstructive pulmonary disease Current Visit: No Status: Chronic Qualifiers: COPD type: unspecified COPD Qualified Code(s): J44.9 - Chronic obstructive pulmonary disease, unspecified (6) Coronary artery disease Current Visit: No Status: Chronic Qualifiers: Coronary Disease-Associated Artery/Lesion type: [place] artery [place] vs. transplanted heart: [place] heart Associated angina: without angina Qualified Code(s): I25.10 - Atherosclerotic heart disease of [place] coronary artery without angina pectoris (7) DVT prophylaxis Current Visit: No Status: Acute (8) History of mitral valve replacement Current Visit: Yes Status: Chronic (9) Hypertension Current Visit: No Status: Chronic Qualifiers: Hypertension type: essential hypertension Qualified Code(s): I10 - Essential (primary) hypertension (10) Non-Hodgkin lymphoma Current Visit: Yes Status: Chronic Qualifiers: Non-Hodgkin lymphoma type: unspecified type Lymphoma site: unspecified region Qualified Code(s): C85.90 - Non-Hodgkin lymphoma, unspecified, unspecified site (11) Obesity (BMI 30.0-34.9) Current Visit: No Status: Chronic (12) Obstructive sleep apnea Current Visit: Yes Status: Chronic (13) Schizophrenia Current Visit: No Status: Chronic Qualifiers: Schizophrenia type: unspecified Qualified Code(s): F20.9 - Schizophrenia, unspecified - Subjective Interval history: Mr. Pace is a 76 year old male with history of mechanical mitral valve on anticoagulation, CKD, coronary artery disease, recently diagnosed lymphoma presents with right-sided chest wall pain. Patient presents after having a recent lymph node resection by Dr. Elena on 02/11/2017. Patient reports progressive pain, swelling, and bruising over the area. Patient was hospitalized in the [place] for this issue on 02/15/17 and initially his hemoglobin on presentation there was 9.8, rechecked was 6.3. The patient was transferred to our ER and a CT scan showed a large hematoma between the pectoralis major and pectoralis minor muscle. He was admitted here for acute anemia with large left chest wall hematoma. He received total 10 U PRBC and 4 U FFP. He did have hematoma evacuation done on 02/18/17. Pt seen and examined at bedside. Sitting in chair and denies any complains at this time. No overnight issues reported. [facility] however his discharge was held due to wound vac supplies not being available. Pt's discharge is pending arrangement of wound vac at the receiving facility. INR within therapeutic range continue current management vitals within acceptable range - Constitutional Vitals: Temp Pulse Resp BP Pulse Ox 98.1 F 73 18 143/79 95 03/01/17 07:04 03/01/17 07:04 03/01/17 11:36 03/01/17 07:04 03/01/17 11:36 General appearance: Present: cooperative, A&O X 3, pleasant, no acute distress, obese, answers questions appropriately - Head Head exam: Present: atraumatic, normocephalic - Eye Eye exam: Present: conjuntiva pink, sclera anicteric - Respiratory Respiratory exam: Absent: respiratory distress, wheezes - Cardiovascular Cardiovascular exam: Present: RRR, +S1, +S2. Absent: diastolic murmur, gallop, rubs, systolic murmur - GI/Abdominal GI/Abdominal exam: Present: normal bowel sounds, soft, no peritoneal signs. Absent: distended, tenderness Additional comments: lateral right abd and chest wall echymosis - Extremities Exam Extremities exam: Present: warm, radial pulses palpable and symmetrical. Absent : calf tenderness, pedal edema - Neurological Exam Neurological exam: Present: alert, oriented X3 Internal Medicine: Result - Labs CBC & Chem 7: 03/01/17 08:35 03/01/17 08:35 Labs: Short CBC 03/01/17 Range/Units 08:35 WBC 8.0 (4.3-11.1) K/mcL Hgb 10.9 L (12.9-16.9) g/dL Hct 34.1 L (37.5-50.1) % Plt Count 173 (140-400) K/mcL Neutrophils # 5.9 (1.6-8.9) K/mcL BMP 03/01/17 08:35 Sodium 137 Potassium 4.2 Chloride 111 H Carbon Dioxide 18 L BUN 19 Creatinine 1.29 H Glucose 98 Calcium 9.0 - ABG Interpretation ABG results: PT/INR, D-dimer PT 27.7 Seconds (9.4-12.1) H 03/01/17 08:35 - VTE Documentation of Mechanical Device: Intermittent pneumatic compression device Consult Discharge Plan - Plan Instructions: Chronic Obstructive Pulmonary Disease (DC) Additional Instructions: Please follow up with your primary care physician and general surgery within five days after your discharge from the hospital. Please follow up with oncology within one to two weeks after your discharge from the hospital. Continue wound vac support continue to monitor INR, goal INR: 2.5-3.5 Resume all your other home medications as prescribed by your primary care physician. Referrals: Donna Elena MD [Partnered Physician] - 03/06/17 1:50 pm Jenn Salguero MD [Partnered Physician] - 03/15/17 10:20 am [facility],PCP [Primary Care Provider] - (THIS APPOINTMENT IS WITH THE [facility] ) Prescriptions: RX: HYDROcodone/Acet 5/325 mg [[place] 5-325 mg] 1 tab PO Q4H PRN #20 PRN Reason: Severe Pain
[2017-03-01 19:13] VITALS: BP 131/79
== END 2017-03-01 20:55 | DRG 908 ==
LOC: 3ANU 13:01 → EMEROO 13:01 → 2NNU 16:09 → SUATTDRO 19:24 → 3ANU 02-21 11:12
PROVIDERS: ADMIT Nurse Practitioner Family; ATTEND Internal Medicine